=== PATIENT | female | born 1940 | race Caucasian/White ===

== ENCOUNTER 2016-12-09 01:31 | Inpatient (IN) | payer MEDICARE, OTHER ==
[2016-12-09] MEDS ORDERED: Albuterol 0.083% 2.5 MG/3 ML Neb Soln NEB ONE (01:40)
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
[2016-12-09] MEDS ORDERED: Aspirin 81 MG Tab.Chew PO ONE (02:00)
[2016-12-09] MEDS ORDERED: methylPREDNISolone Sodium Succinate 125 MG/2 ML SDV IVPUSH ONE (02:01)
[2016-12-09 02:18] LABS: CHLORIDE,CL 99 mmol/L (101-111); SODIUM,NA 134 mmol/L (135-145)
[2016-12-09] MEDS ORDERED: Furosemide 40 MG/4 ML VIAL IVPUSH ONE (02:31)
[2016-12-09] MEDS ORDERED: Acetaminophen 325 MG Tab PO PRN (03:41)
[2016-12-09] MEDS ORDERED: Morphine 2 MG/ML Syringe IVPUSH PRN (03:41)
[2016-12-09] MEDS ORDERED: Ondansetron 4 MG/2 ML SDV IVPUSH PRN (03:41)
[2016-12-09] MEDS ORDERED: Albuterol 0.083% 2.5 MG/3 ML Neb Soln NEB PRN (03:49)
[2016-12-09] MEDS: methylPREDNISolone Sodium Succinate 40 MG/1 ML SDV IVPUSH SCH ×3 (04:18→20:14)
[2016-12-09] MEDS: cefTRIAXone 1 GM in Sodium Chloride 0.9% 50 ML IV SCH (04:19)
[2016-12-09] MEDS: Diltiazem 120 MG Cap.CD PO SCH (09:16)
[2016-12-09] MEDS: Diltiazem 180 MG Cap.CD PO SCH (09:16)
[2016-12-09] MEDS: Aspirin 81 MG Tab.EC PO SCH (09:17)
[2016-12-09] MEDS: Albuterol/Ipratropium 3.0-0.5 MG/3 ML Neb Soln NEB SCH ×5 (09:17→22:57)
[2016-12-09] MEDS ORDERED: Insulin Aspart 100 Units/ML 3 ML Pen SUBCUT SCH ×2 (11:00→17:00)
[2016-12-09] MEDS ORDERED: Cyanocobalamin (Vitamin B12) 1,000 MCG/ML SDV IM ONE (11:18)
[2016-12-09] MEDS ORDERED: Insulin Aspart 100 Units/ML 3 ML Pen SUBCUT ONE (12:39)
[2016-12-09] MEDS: Azithromycin 500 MG in Sodium Chloride 0.9% 250 ML IV SCH (12:52)
--- NOTE | 2016-12-09 14:54 | EKG ---
12/09/2016 - EVA TREVINO - EKG shows atrial fibrillation with rapid ventricular response. Heart rate of 104 per minute. There are multiple PVCs. There is questionable Q-wave in anterior septal wall suggestive of previous infarct. [facility] /[id number]
--- NOTE | 2016-12-09 16:28 | HP ---
CHIEF COMPLAINT: Shortness of breath. HISTORY OF PRESENT ILLNESS: Ms. Adriana Cuevas presented with complaint of shortness of breath. This has been going on for 2 weeks and has gradually been worsening. It is present at rest, but worse with activity. She has associated cough, which is productive of yellowish sputum. She has been using bronchodilators and has been treated with antibiotics including Z-Keenan, has also received dexamethasone, but none of these seem to help. She has been wheezing and also has noticed bilateral lower extremity swelling. No chest pain. No headache. No blurring of vision. No dysuria. No frequency on micturition. REVIEW OF SYSTEMS: A 10-point review of system performed. No other pertinent findings except as noted above. PAST MEDICAL HISTORY: Coronary artery disease, hypertension, diabetes, asthma, aortic valve replacement on chronic anticoagulation. SOCIAL HISTORY: No tobacco use. FAMILY HISTORY: Reviewed and considered negative. OBJECTIVE: General: The patient is alert, oriented to place, time, and person. Head: Atraumatic and normocephalic. Ear, Nose, and Throat: Unremarkable. Neck: Supple. Chest: Diminished air entry bilaterally. CVS: Regular rate and rhythm. Abdomen: Soft, nontender. Extremities: 1+ pedal edema. No finger clubbing. Skin: No rash. Neuro: Grossly nonfocal. Endocrine: No thyromegaly. Psychiatric: Judgment and insight are good. Vital Signs: Reviewed. Blood pressure 145/79; it was higher earlier. Oxygen saturation 98%. LABORATORY DATA: White count is 14.7, hemoglobin is 14.4. Sodium 134. Glucose is 190. Lactic acid is 2.9. BNP is 160. Chest x-ray shows questionable infiltrate at lower lung zones. There is probably a little bit of cephalization of pulmonary vessels as well. ASSESSMENT: 1. Probable pneumonia. The patient has cough and has shortness of breath. This has been going on for 2 weeks. 2. Possible acute exacerbation of congestive heart failure. Her brain natriuretic peptide is only mildly elevated. However, she does have a little bit of lower extremity edema. 3. Diabetes mellitus. Blood sugar is poorly controlled. 4. Lactic acidosis. Serum lactate is elevated at 2.9. 5. Hypertension, suboptimal control. 6. Colon artery disease. She is status post previous stent placement. 7. Status post aortic valve replacement, on chronic anticoagulation. INR is supratherapeutic. 8. Chronic anticoagulation. INR is supratherapeutic. PLAN: 1. Start the patient on sliding scale. 2. Intravenous ceftriaxone. 3. Intravenous azithromycin. 4. Sputum culture. 5. Hold Coumadin. 6. Send sample for PT and INR. 7. Intravenous Lasix 60 mg every 24 hours. 8. Chart reviewed. Discussed with emergency room provider and also with physician practice assistant. [facility] /[id number]
[2016-12-09] MEDS: Insulin Aspart 100 Units/ML 3 ML Pen SUBCUT SCH ×2 (18:07→21:42)
[2016-12-09] MEDS: Metoprolol Tartrate 50 MG Tab PO SCH (21:47)
[2016-12-10] MEDS: methylPREDNISolone Sodium Succinate 40 MG/1 ML SDV IVPUSH SCH ×4 (03:27→21:58)
[2016-12-10] MEDS: Albuterol/Ipratropium 3.0-0.5 MG/3 ML Neb Soln NEB SCH ×5 (03:27→17:04)
[2016-12-10] MEDS: Sodium Chloride 0.9% 10 ML Syringe FLUSH PRN ×2 (03:27→04:05)
[2016-12-10] MEDS: cefTRIAXone 1 GM in Sodium Chloride 0.9% 50 ML IV SCH (03:28)
[2016-12-10] MEDS: Insulin Aspart 100 Units/ML 3 ML Pen SUBCUT SCH ×4 (08:09→21:17)
[2016-12-10] MEDS: Diltiazem 120 MG Cap.CD PO SCH (08:41)
[2016-12-10] MEDS: Metoprolol Tartrate 50 MG Tab PO SCH ×2 (08:42→20:37)
[2016-12-10] MEDS: Aspirin 81 MG Tab.EC PO SCH (08:42)
[2016-12-10] MEDS: Diltiazem 180 MG Cap.CD PO SCH (08:42)
[2016-12-10] MEDS: metFORMIN 500 MG Tab PO SCH ×2 (08:43→17:04)
[2016-12-10] MEDS: Budesonide 0.5 MG/2 ML Neb Susp NEB SCH ×2 (08:45→17:05)
[2016-12-10] MEDS ORDERED: Furosemide 40 MG/4 ML VIAL IVPUSH SCH (09:00)
[2016-12-10 10:03] LABS: CHLORIDE,CL 94 mmol/L (101-111); SODIUM,NA 135 mmol/L (135-145)
[2016-12-10] MEDS ORDERED: Potassium Chloride 10 MEQ Tab.ER PO ONE (10:25)
--- NOTE | 2016-12-10 11:19 | PN ---
DATE: 12/10/2016 SUBJECTIVE: Ms. Lora offers no new complaints today. Still her mouth feels dry. She is still coughing, but severity is better. No fever. No chills. No nausea. No vomiting today. She did vomit yesterday. REVIEW OF SYSTEMS: Constitutional, cardiac, respiratory, gastrointestinal, and genitourinary system were reviewed. No other pertinent findings except as noted above. OBJECTIVE: General: The patient is alert, oriented to place, time, and person. Head: Atraumatic and normocephalic. Ear, Nose, and Throat: Unremarkable. Chest: Diminished air entry bilaterally. CVS: Regular rate and rhythm. Abdomen: Soft and nontender. Extremities: Trace edema. Vital Signs: She is tachycardic heart rate 116 per minute, respiratory rate normal, blood pressure 149/80. LABORATORY DATA: INR is 5.4. Potassium is 3.4 with BUN of 36. Blood glucose elevated. ASSESSMENT: 1. Probable pneumonia, continues to cough. Afebrile. 2. Acute exacerbation of congestive heart failure. BNP was mildly elevated, did have lower extremity edema. The patient appears clinically dry at this point. 3. Diabetes mellitus, poorly controlled, likely because of steroids. 4. Lactic acidosis. Serum lactate was 2.9. 5. Coronary artery disease. The patient is status post previous stent placement. 6. Status post aortic valve replacement. She is on chronic anticoagulation. INR is still supratherapeutic. 7. Chronic anticoagulation. INR is 5.4. PLAN: 1. Hold Coumadin. 2. Reduce steroids to 20 mg every 8 hours. 3. Repeat serum lactate. 4. Discontinue intravenous Lasix. 5. Start oral Lasix. 6. Continue antibiotics for now. 7. Correct potassium deficit. [facility] /[id number]
[2016-12-10] MEDS: Azithromycin 500 MG in Sodium Chloride 0.9% 250 ML IV SCH (12:56)
[2016-12-11] MEDS: Albuterol/Ipratropium 3.0-0.5 MG/3 ML Neb Soln NEB SCH ×4 (01:50→17:32)
[2016-12-11] MEDS: cefTRIAXone 1 GM in Sodium Chloride 0.9% 50 ML IV SCH (04:03)
[2016-12-11] MEDS: methylPREDNISolone Sodium Succinate 40 MG/1 ML SDV IVPUSH SCH (05:48)
[2016-12-11] MEDS: Budesonide 0.5 MG/2 ML Neb Susp NEB SCH ×2 (07:25→17:32)
[2016-12-11] MEDS ORDERED: Furosemide 40 MG/4 ML VIAL IVPUSH SCH (09:00)
[2016-12-11] MEDS: metFORMIN 500 MG Tab PO SCH ×2 (09:20→17:11)
[2016-12-11] MEDS: Diltiazem 180 MG Cap.CD PO SCH (09:20)
[2016-12-11] MEDS: Furosemide 40 MG Tab PO SCH (09:21)
[2016-12-11] MEDS: Aspirin 81 MG Tab.EC PO SCH (09:21)
[2016-12-11] MEDS: Metoprolol Tartrate 50 MG Tab PO SCH ×2 (09:21→21:51)
[2016-12-11] MEDS: Diltiazem 120 MG Cap.CD PO SCH (09:22)
[2016-12-11] MEDS: Insulin Aspart 100 Units/ML 3 ML Pen SUBCUT SCH ×4 (09:24→21:48)
--- NOTE | 2016-12-11 12:12 | PN ---
DATE: 12/11/2016 SUBJECTIVE: Today Adriana indicated that she is still feeling short of breath. She is still wheezing and still coughing a lot. No nausea, no vomiting. Activity level is limited. No fever and no chills. REVIEW OF SYSTEMS: Constitutional, cardiac, respiratory, gastrointestinal, musculoskeletal reviewed. No other pertinent findings except as noted above. OBJECTIVE: General: The patient is alert, oriented to place, time, and person. Head: Atraumatic and normocephalic. Chest: Expiratory rhonchi bilaterally. CVS: Regular rate and rhythm. Abdomen: Soft, nontender. Extremities: No edema. LABORATORY DATA: INR is 3.2. ASSESSMENT: 1. Probable pneumonia. Still coughing. Continues to wheeze. 2. Acute exacerbation of congestive heart failure. Did have mildly elevated BNP. Did have some edema. 3. Bronchospasm, may have a component of chronic obstructive pulmonary disease exacerbation. 4. Diabetes mellitus, poorly controlled, mostly because of steroids. 5. Lactic acidosis. Serum lactate was elevated. 6. Coronary artery disease, denies chest pain. 7. Status post aortic valve replacement. On chronic anticoagulation. INR is down to 3.2. PLAN: 1. We will start patient back on Coumadin. 2. Repeat serum lactate. 3. Discontinue intravenous Solu-Medrol. 4. Start prednisone 40 mg daily. 5. Encourage increased activity. 6. Sliding scale. 7. Monitor blood sugars. [facility] /[id number]
[2016-12-11] MEDS: predniSONE 20 MG Tab PO SCH (12:27)
[2016-12-11] MEDS: Azithromycin 500 MG in Sodium Chloride 0.9% 250 ML IV SCH ×2 (12:28→14:33)
[2016-12-11] MEDS: Amoxicillin/Clavulanate K 875-125 MG Tab PO SCH ×2 (13:46→21:59)
[2016-12-11] MEDS: Codeine/guaiFENesin 100-10 MG/5 ML Syrup 5 ML Cup PO PRN (13:55)
[2016-12-11] MEDS: Azithromycin 250 MG Tab PO SCH (14:37)
[2016-12-12] MEDS: Albuterol/Ipratropium 3.0-0.5 MG/3 ML Neb Soln NEB SCH ×4 (00:53→17:58)
[2016-12-12] MEDS: Budesonide 0.5 MG/2 ML Neb Susp NEB SCH ×2 (07:20→17:58)
[2016-12-12] MEDS: metFORMIN 500 MG Tab PO SCH (08:26)
[2016-12-12] MEDS: predniSONE 20 MG Tab PO SCH (08:26)
[2016-12-12] MEDS: Insulin Aspart 100 Units/ML 3 ML Pen SUBCUT SCH ×4 (08:27→21:48)
[2016-12-12] MEDS: Furosemide 40 MG Tab PO SCH (09:34)
[2016-12-12] MEDS: Amoxicillin/Clavulanate K 875-125 MG Tab PO SCH ×2 (09:34→21:16)
[2016-12-12] MEDS: Diltiazem 120 MG Cap.CD PO SCH (09:34)
[2016-12-12] MEDS: Aspirin 81 MG Tab.EC PO SCH (09:34)
[2016-12-12] MEDS: Metoprolol Tartrate 50 MG Tab PO SCH ×2 (09:35→21:20)
[2016-12-12] MEDS: Diltiazem 180 MG Cap.CD PO SCH (09:35)
[2016-12-12] MEDS: Azithromycin 250 MG Tab PO SCH (09:37)
[2016-12-12] MEDS: Codeine/guaiFENesin 100-10 MG/5 ML Syrup 5 ML Cup PO PRN (09:37)
[2016-12-12] MEDS ORDERED: Furosemide 40 MG Tab PO ONE (10:02)
[2016-12-12] MEDS ORDERED: Sodium Chloride 0.9% 1,000 ML IV SCH ×2 (10:15→14:30)
--- NOTE | 2016-12-12 10:41 | PN ---
DATE: 12/12/2016 SUBJECTIVE: Ms. Wright indicated that she still feels short of breath. She is short of breath at rest, and significantly worse with activity. She still continues to wheeze. She still has intermittent coughing spells. No nausea. No vomiting. She coughed up yellowish sputum this morning. REVIEW OF SYSTEMS: Respiratory, gastrointestinal, constitutional, cardiac are reviewed. No other pertinent findings except as noted above. OBJECTIVE: General: The patient is alert, oriented to place, time, and person. Head: Atraumatic and normocephalic. Chest: Bilateral expiratory rhonchi. CVS: Irregular rate and rhythm. Abdomen: Soft, nontender, obese. Extremities: No pedal edema. LABORATORY DATA: INR is 2.5 today. ASSESSMENT AND PLAN: 1. Community-acquired pneumonia. The patient continues to cough. She expectorated yellowish sputum today. 2. Acute exacerbation of congestive heart failure. Does have diminished air entry bilaterally, has expiratory rhonchi. 3. Bronchospasm, continues to wheeze. Probably due to a component of chronic obstructive pulmonary disease exacerbation. 4. Diabetes mellitus. Suboptimal blood sugar control because of steroids. 5. Lactic acidosis. Serum lactate went up 4.8. Reason for this is not obvious. 6. Hypertension. Blood pressure is poorly controlled. 7. Status post aortic valve replacement. She is on chronic anticoagulation. INR is. 8. down to 3.2. PLAN: 1. Obtain a repeat chest x-ray. 2. We will which check serum lactate again. 3. Start the patient back on normal saline. 4. Obtain basic metabolic. Obtain a CBC. It is unclear why the patient's lactate went up to 4.8. We will repeat the levels. 5. Insulin sliding scale. [facility] /[id number]
[2016-12-12] MEDS: cloNIDine 0.1 MG Tab PO SCH ×2 (11:58→21:21)
[2016-12-12] MEDS ORDERED: Warfarin 2.5 MG Tab PO ONE (14:00)
[2016-12-12] MEDS ORDERED: cloNIDine 0.1 MG Tab PO SCH (21:00)
[2016-12-13] MEDS: Albuterol/Ipratropium 3.0-0.5 MG/3 ML Neb Soln NEB SCH ×2 (01:03→07:36)
[2016-12-13] MEDS: Budesonide 0.5 MG/2 ML Neb Susp NEB SCH (07:36)
[2016-12-13] MEDS: predniSONE 20 MG Tab PO SCH (08:04)
[2016-12-13] MEDS: Insulin Aspart 100 Units/ML 3 ML Pen SUBCUT SCH ×2 (08:12→11:39)
[2016-12-13] MEDS: Azithromycin 250 MG Tab PO SCH (08:46)
[2016-12-13] MEDS: Diltiazem 120 MG Cap.CD PO SCH (08:46)
[2016-12-13] MEDS: Diltiazem 180 MG Cap.CD PO SCH (08:46)
[2016-12-13] MEDS: Metoprolol Tartrate 50 MG Tab PO SCH (08:46)
[2016-12-13] MEDS: Amoxicillin/Clavulanate K 875-125 MG Tab PO SCH (08:46)
[2016-12-13] MEDS: cloNIDine 0.1 MG Tab PO SCH (08:47)
[2016-12-13] MEDS: Aspirin 81 MG Tab.EC PO SCH (08:47)
[2016-12-13 11:38] VITALS: BP 139/60
[2016-12-13] MEDS: Furosemide 40 MG Tab PO SCH (11:43)
[2016-12-13] MEDS ORDERED: Warfarin 2.5 MG Tab PO ONE (14:00)
--- NOTE | 2016-12-14 02:36 | DISCH ---
FINAL DIAGNOSES: 1. Probable community-acquired pneumonia. 2. Possible acute exacerbation of congestive heart failure. 3. Bronchospasm likely due to acute bronchitis. 4. Diabetes mellitus. 5. Lactic acidosis. 6. Hypertension. 7. Status post aortic valve replacement, on chronic anticoagulation. SUMMARY OF HOSPITAL COURSE: Ms. Adriana Cuevas is a 76-year-old female, who presented with complaint of shortness of breath and cough that was going on for 2 weeks. She was expectorating yellowish sputum and had been treated as outpatient with antibiotics and steroid. Her condition continued to worsen. Hence she presented back to the emergency room. Chest x-ray suggested possible pneumonia and questionable cephalization of pulmonary vessels. The patient got admitted, was placed on intravenous antibiotics. Because of pulmonary vascular congestion, was started on diuretics also. She did improve some, but continues to wheeze. Was also started that because of her pneumonia, she does have some degree of asthma exacerbation. She was treated with diuretics, steroids, and antibiotics. Condition gradually improved. Her lactate was elevated at 2.9 at admission and has gradually went up to 5.0. Because she was on metformin, I had to stop that medication. Metformin can be associated with lactic acidosis. With steroids, her blood sugars were poorly controlled. We will place her on insulin sliding scale. She is doing better now. Because of the lactic acidosis, we had to hold metformin at discharge. Initially, I started the patient on glyburide 5 mg daily. Upon review of her case, it was difficult drawing blood samples from her and she had to be poked multiple times. Sometimes, a tourniquet was in place for significant amount of time. This raises concern about the source of her lactic acidosis. I think in the clinic she could be rechallenged with metformin, but her lactate should be checked while on it. We will now send her home on glyburide, but changes could be made in the clinic based on her clinical condition. PHYSICAL EXAMINATION: General: At discharge, the patient is alert, oriented to place, time, and person. Head: Atraumatic and normocephalic. Ear, Nose, and Throat: Unremarkable. Chest: Diminished breath sounds bilaterally. CVS: Regular rate and rhythm. Abdomen: Soft, nontender. Extremities: No pedal edema. No finger clubbing. [facility] /[id number]
== END 2016-12-13 13:30 | disposition home or self-care (01) | DRG 194 ==
LOC: DL.ED 01:31 → DL.MS 03:00 → UNDOADMIN 03:00 → DL.MS 03:47 → UNDODISIN 12-13 13:30
PROVIDERS: ADMIT Hospitalist; ATTEND Hospitalist
DX: J40 Bronchitis, not specified as acute or chronic (principal); J45.901 Unspecified asthma with (acute) exacerbation; I48.91 Unspecified atrial fibrillation; J18.9 Pneumonia, unspecified organism; I25.10 Atherosclerotic heart disease of native coronary artery without angina pectoris; E78.00 Pure hypercholesterolemia, unspecified; E87.2 Acidosis; E53.8 Deficiency of other specified B group vitamins; Z95.5 Presence of coronary angioplasty implant and graft; Z88.8 Allergy status to other drugs, medicaments and biological substances; Z79.899 Other long term (current) drug therapy; I50.9 Heart failure, unspecified; J20.9 Acute bronchitis, unspecified; R06.02 Shortness of breath; E11.9 Type 2 diabetes mellitus without complications; I10 Essential (primary) hypertension; Z95.2 Presence of prosthetic heart valve; Z79.01 Long term (current) use of anticoagulants
CPT/HCPCS: 36415; 71010; 80053; 82553; 83605; 83880; 84484; 85025; 85610; 87040 ×2; 87804 ×2; 93005; 93010; 96374; 96375; 99285 ×2; J1940; J2930; J7620; 80048; 82962; 87070; 87205; 94010; 94640; A9270-GY; J0456; J0696; J1815-GY; J2920; J3420; J7030; J7050

== ENCOUNTER 2017-06-16 02:47 | Emergency (ER) | payer MEDICARE, OTHER ==
[2017-06-16] MEDS ORDERED: Sodium Chloride 0.9% 1,000 ML IV ONE (02:52)
[2017-06-16] MEDS ORDERED: Metoclopramide 10 MG/2 ML SDV IVPUSH ONE (02:53)
[2017-06-16 03:03] VITALS: BP 102/64
[2017-06-16] MEDS ORDERED: LORazepam 2 MG/ML Syringe IVPUSH ONE (03:04)
[2017-06-16 03:51] LABS: CHLORIDE,CL 103 mmol/L (101-111); SODIUM,NA 142 mmol/L (135-145)
--- NOTE | 2017-06-16 04:38 | EDM.PDOC ---
ED HPI GENERAL MEDICAL PROBLEM - General Chief Complaint: General Stated Complaint: SHAKING Time Seen by Provider: 06/16/17 03:00 Source of Information: Reports: Patient History Limitations: Reports: No Limitations - History of Present Illness INITIAL COMMENTS - FREE TEXT/NARRATIVE: C/O waking at 2 am shaking with chills, checked blood sugar and was 150. No recent cold sx or cough, feels like going to throw up. Onset: Today, Sudden - Related Data Allergies Allergy/AdvReac Type Severity Reaction Status Date / Time amlodipine besylate Allergy Tachycardia Verified 06/16/17 03:01 [From Norvasc] amoxicillin trihydrate Allergy Diarrhea Verified 06/16/17 03:01 [From Amoxil] Iodine and Iodide Containing Allergy Redness Verified 06/16/17 03:01 Produc levofloxacin [From Levaquin] Allergy Hives Verified 06/16/17 03:01 nickel Allergy Rash Verified 06/16/17 03:01 pravastatin Allergy sore Verified 06/16/17 03:01 muscles simvastatin [From Zocor] Allergy Muscle Verified 06/16/17 03:01 Aches atorvastatin calcium AdvReac Nausea Verified 06/16/17 03:01 [From Lipitor] dronedarone AdvReac Nausea and Verified 06/16/17 03:01 Vomiting hydrocodone AdvReac Nausea and Verified 06/16/17 03:01 Vomiting tramadol AdvReac Nausea and Verified 06/16/17 03:01 Vomiting Home Meds: Home Meds Aspirin [Adult Low Dose Aspirin EC] 81 mg PO DAILY 10/11/14 [History] Diltiazem HCl [Diltiazem 24Hr ER] 300 mg PO DAILY 10/11/14 [History] Losartan/Hydrochlorothiazide [Losartan-HCTZ 100-25 MG] 1 tab PO DAILY 10/11/14 [ History] Warfarin Sodium [Jantoven] 5 mg PO ASDIRECTED 10/11/14 [History] Metoprolol Tartrate [Lopressor] 100 mg PO BID 11/19/14 [History] Cyanocobalamin (Vitamin B-12) [Cyanocobalamin Injection] 1,000 mcg IM Q30D 12/09 [History] Warfarin Sodium [Jantoven] 2.5 mg PO ASDIRECTED 12/09/16 [History] glyBURIDE [Glyburide] 5 mg PO DAILY #10 tablet 12/13/16 [Rx] Past Medical History HEENT History: Reports: Impaired Vision Cardiovascular History: Reports: CAD, High Cholesterol, Hypertension, Other ( See Below) Other Cardiovascular History: Paroxysmal Atrial Fibrillation, Aortic Stenosis Respiratory History: Reports: Asthma, Sleep Apnea Genitourinary History: Reports: Other (See Below) Other Genitourinary History: mild stress incontinence when coughing 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 (See Below) Other OB/BYN History: Endometrial Hyperplasia; Dilatation & Curettage Musculoskeletal History: Reports: Arthritis Endocrine/Metabolic History: Reports: Diabetes, Type II Hematologic History: Reports: B12 Deficiency - Past Surgical History Cardiovascular Surgical History: Reports: Coronary Artery Stent, Valve Replacement, Other (See Below) GI Surgical History: Reports: Hernia, Abdominal Female Surgical History: Reports: Hysterectomy, Other (See Below) Social & Family History - Family History Family Medical History: Noncontributory Cardiac: Reports: Hypertension - Tobacco Use Smoking Status *Q: Unknown Ever Smoked Years of Tobacco use: 8 Packs/Tins Daily: 1 Second Hand Smoke Exposure: No - Caffeine Use Caffeine Use: Reports: Soda - Alcohol Use Days Per Week of Alcohol Use: 0 - Recreational Drug Use Recreational Drug Use: No - Living Situation & Occupation Living situation: Reports: Occupation: Retired ED ROS GENERAL - Review of Systems Review Of Systems: See Below Constitutional: Reports: Chills HEENT: Reports: Glasses Respiratory: Reports: No Symptoms Cardiovascular: Reports: No Symptoms Endocrine: Reports: No Symptoms GI/Abdominal: Reports: Nausea : Reports: No Symptoms Musculoskeletal: Reports: No Symptoms Skin: Reports: No Symptoms Neurological: Reports: No Symptoms Psychiatric: Reports: Anxiety ED EXAM, GENERAL - Physical Exam Exam: See Below Exam Limited By: No Limitations General Appearance: Alert, Anxious, Mild Distress, Obese Eye Exam: Bilateral Eye: EOMI, PERRL Ears: Normal External Exam, Normal TMs Nose: Normal Inspection Throat/Mouth: Normal Inspection Head: Atraumatic, Normocephalic Neck: Normal Inspection Respiratory/Chest: Lungs Clear, Normal Breath Sounds Cardiovascular: Normal Peripheral Pulses, Irregularly Irregular GI/Abdominal: Normal Bowel Sounds, Soft, Non-Tender. No: Distended, Guarding, Tender Extremities: Normal Inspection, Normal Range of Motion Neurological: Alert, Oriented, Normal Cognition Psychiatric: Anxious Skin Exam: Warm, Dry, Intact, Normal Color, No Rash Course - Vital Signs Last Recorded V/S: Last Vital Signs Temp 100.0 F 06/16/17 03:01 Pulse 104 H 06/16/17 03:01 Resp 30 H 06/16/17 03:01 BP 102/64 06/16/17 03:01 Pulse Ox 90 L 06/16/17 03:01 - Orders/Labs/Meds Labs: Laboratory Tests 06/16/17 06/16/17 06/16/17 Range/Units 03:10 03:10 03:25 WBC 15.2 H (5.0-10.0) 10^3/uL RBC 4.51 (4.2-5.4) 10^6/uL Hgb 12.6 (12.0-16.0) g/dL Hct 38.6 (37.0-47.0) % MCV 85.6 (80-100) fL MCH 27.9 (27.0-34.0) pg MCHC 32.6 L (33.0-35.0) g/dL Plt Count 272 (150-450) 10^3/uL Neut % (Auto) 79.7 H (42.2-75.2) % Lymph % (Auto) 12.9 L (20.5-50.1) % [place] % (Auto) 5.6 (2-8) % Eos % (Auto) 1.7 (1.0-3.0) % Baso % (Auto) 0.1 (0.0-1.0) % PT (9.0-12.0) SEC INR (0.9-1.2) Sodium 142 (135-145) mmol/L Potassium 4.3 (3.6-5.0) mmol/L Chloride 103 (101-111) mmol/L Carbon Dioxide 25.0 (21.0-31.0) mmol/L Anion Gap 18.3 BUN 24 H (7-18) mg/dL Creatinine 1.2 (0.6-1.3) mg/dL Est Cr Clr Drug Dosing 32.04 mL/min Estimated GFR (MDRD) 44 BUN/Creatinine Ratio 20.00 Glucose 142 H (74-105) mg/dL Lactic Acid 2.0 (0.5-2.2) mmol/L Calcium 9.2 (8.4-10.2) mg/dl Total Bilirubin 0.4 (0.2-1.0) mg/dL AST 26 (10-42) IU/L ALT 22 (10-60) IU/L Alkaline Phosphatase 73 (42-121) IU/L Troponin I < 0.02 (0.00-0.02) ng/ml Total Protein 7.2 (6.7-8.2) g/dl Albumin 3.7 (3.2-5.5) g/dl Globulin 3.5 Albumin/Globulin Ratio 1.06 Amylase 30 (28-100) U/L Lipase 17 L (22-51) U/L Urine Color (YELLOW) Urine Appearance (CLEAR) Urine pH (5.0-9.0) Ur Specific [place] (1.005-1.030) Urine Protein (NEGATIVE) Urine Glucose (UA) (NEGATIVE) Urine Ketones (NEGATIVE) Urine Occult Blood (NEGATIVE) Urine Nitrite (NEGATIVE) Urine Bilirubin (NEGATIVE) Urine Urobilinogen (0.2-1.0) mg/dL Ur Leukocyte Esterase (NEGATIVE) Urine RBC /HPF Urine WBC (0-5/HPF) /HPF Ur Epithelial Cells /HPF Urine Bacteria (0-FEW/HPF) /HPF 06/16/17 06/16/17 Range/Units 03:25 04:50 WBC (5.0-10.0) 10^3/uL RBC (4.2-5.4) 10^6/uL Hgb (12.0-16.0) g/dL Hct (37.0-47.0) % MCV (80-100) fL MCH (27.0-34.0) pg MCHC (33.0-35.0) g/dL Plt Count (150-450) 10^3/uL Neut % (Auto) (42.2-75.2) % Lymph % (Auto) (20.5-50.1) % [place] % (Auto) (2-8) % Eos % (Auto) (1.0-3.0) % Baso % (Auto) (0.0-1.0) % PT 22.5 H (9.0-12.0) SEC INR 2.2 H (0.9-1.2) Sodium (135-145) mmol/L Potassium (3.6-5.0) mmol/L Chloride (101-111) mmol/L Carbon Dioxide (21.0-31.0) mmol/L Anion Gap BUN (7-18) mg/dL Creatinine (0.6-1.3) mg/dL Est Cr Clr Drug Dosing mL/min Estimated GFR (MDRD) BUN/Creatinine Ratio Glucose (74-105) mg/dL Lactic Acid (0.5-2.2) mmol/L Calcium (8.4-10.2) mg/dl Total Bilirubin (0.2-1.0) mg/dL AST (10-42) IU/L ALT (10-60) IU/L Alkaline Phosphatase (42-121) IU/L Troponin I (0.00-0.02) ng/ml Total Protein (6.7-8.2) g/dl Albumin (3.2-5.5) g/dl Globulin Albumin/Globulin Ratio Amylase (28-100) U/L Lipase (22-51) U/L Urine Color Yellow (YELLOW) Urine Appearance Turbid (CLEAR) Urine pH 5.0 (5.0-9.0) Ur Specific [place] 1.025 (1.005-1.030) Urine Protein Negative (NEGATIVE) Urine Glucose (UA) Negative (NEGATIVE) Urine Ketones Negative (NEGATIVE) Urine Occult Blood Trace-intact H (NEGATIVE) Urine Nitrite Negative (NEGATIVE) Urine Bilirubin Negative (NEGATIVE) Urine Urobilinogen 0.2 (0.2-1.0) mg/dL Ur Leukocyte Esterase Small H (NEGATIVE) Urine RBC 0-5 /HPF Urine WBC 20-30 H (0-5/HPF) /HPF Ur Epithelial Cells Many H /HPF Urine Bacteria Many H (0-FEW/HPF) /HPF Meds: Medications Discontinued Medications Generic Name Dose Route Start Last Admin Trade Name Abaq PRN Reason Stop Dose Admin Acetaminophen 650 mg 06/16/17 05:39 06/16/17 05:50 Tylenol PO 06/16/17 05:40 650 mg NOW ONE Administration Amoxicillin/Clavulanate Potassium 1 tab 06/16/17 05:39 06/16/17 05:50 Augmentin 500 Mg\125 Mg PO 06/16/17 05:40 1 tab ONETIME ONE Administration Sodium Chloride 1,000 mls @ 150 mls/hr 06/16/17 02:52 06/16/17 03:15 Normal Saline IV 06/16/17 09:31 150 mls/hr .BOLUS ONE Administration Lorazepam 1 mg 06/16/17 03:04 06/16/17 03:46 Ativan IVPUSH 06/16/17 03:05 0.5 mg ONETIME ONE Administration Metoclopramide HCl 10 mg 06/16/17 02:53 06/16/17 03:16 Reglan IVPUSH 06/16/17 02:54 10 mg ONETIME ONE Administration - Radiology Interpretation Free Text/Narrative:: CXR negative Departure - Departure Time of Disposition: 05:33 Disposition: Home, Self-Care 01 Condition: Fair Clinical Impression: UTI (urinary tract infection) Qualifiers: Urinary tract infection type: acute cystitis Hematuria presence: without hematuria Qualified Code(s): N30.00 - Acute cystitis without hematuria - Discharge Information Instructions: Urinary Tract Infection, Adult Referrals: Carson Leblanc MD [Primary Care Provider] - Forms: ED Department Discharge Additional Instructions: augmentin 500/125 one twice daily for 10 days tylenol for fever/discomfort clinic follow up this week, sooner if symptoms worsen or uncontrolled fever or weakness
[2017-06-16] MEDS ORDERED: Acetaminophen 325 MG Tab PO ONE (05:39)
[2017-06-16] MEDS ORDERED: Amoxicillin/Clavulanate K 500-125 MG Tab PO ONE (05:39)
--- NOTE | 2017-07-07 13:06 | EKG ---
06/16/2017 - EVA TREVINO - EKG shows atrial fibrillation with rate of 95 per minute. There is Q-wave in anterior septal leads, suggestive of possible prior anteroseptal infarct. [facility] /[id number]
--- NOTE | 2017-07-07 13:09 | EKG ---
06/16/2017 - EVA TREVINO - TIME: 3:05 p.m. EKG shows atrial fibrillation, rate of 94 per minute. There is Q-wave in anterior septal leads. [facility] /[id number]
== END 2017-06-16 05:59 | disposition home or self-care (01) ==
LOC: DL.ED 02:47
DX: N30.00 Acute cystitis without hematuria (principal); I25.10 Atherosclerotic heart disease of native coronary artery without angina pectoris; E78.00 Pure hypercholesterolemia, unspecified; I10 Essential (primary) hypertension; I48.91 Unspecified atrial fibrillation; J45.909 Unspecified asthma, uncomplicated; M19.90 Unspecified osteoarthritis, unspecified site; E11.9 Type 2 diabetes mellitus without complications; Z90.710 Acquired absence of both cervix and uterus; Z88.8 Allergy status to other drugs, medicaments and biological substances; Z88.1 Allergy status to other antibiotic agents; Z79.82 Long term (current) use of aspirin; Z79.01 Long term (current) use of anticoagulants
CPT/HCPCS: 36415; 71010; 80053; 81001; 82150; 83605; 83690; 84484; 85025; 85610; 87040; 87086; 87804; 93005; 93010; 94762; 96361; 96374; 96375; 99284; A9270; J2060; J2765; J7030; 87088; 87186

== ENCOUNTER 2018-03-15 00:53 | Emergency (ER) | payer MEDICARE, OTHER ==
[2018-03-15 01:36] LABS: CHLORIDE,CL 101 mmol/L (101-111); SODIUM,NA 140 mmol/L (135-145)
[2018-03-15] MEDS ORDERED: Furosemide 20 MG/2 ML VIAL IVPUSH ONE (01:56)
[2018-03-15] MEDS ORDERED: Metoclopramide 10 MG/2 ML SDV IVPUSH ONE (01:56)
[2018-03-15] MEDS ORDERED: LORazepam 2 MG/ML Syringe IVPUSH ONE (02:01)
[2018-03-15] MEDS ORDERED: Acetaminophen 325 MG Tab PO ONE (02:57)
--- NOTE | 2018-03-15 02:57 | EDM.PDOC ---
ED HPI GENERAL MEDICAL PROBLEM - General Chief Complaint: Respiratory Problem Stated Complaint: ER Time Seen by Provider: 03/15/18 01:15 Source of Information: Reports: Patient History Limitations: Reports: No Limitations - History of Present Illness INITIAL COMMENTS - FREE TEXT/NARRATIVE: ED with spouse via wheelchair with c/o of freezing, woke shaking. Patient anxious hyperventilating. 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 No SOB, no chest pain, no cough. No urinary c/o no GI symptoms. Headache Pain Score (Numeric/FACES): 9 - Related Data Allergies Allergy/AdvReac Type Severity Reaction Status Date / Time amlodipine besylate Allergy Tachycardia Verified 03/15/18 10:52 [From Norvasc] amoxicillin trihydrate Allergy Diarrhea Verified 03/15/18 10:52 [From Amoxil] Iodine and Iodide Containing Allergy Redness Verified 03/15/18 10:52 Produc levofloxacin [From Levaquin] Allergy Hives Verified 03/15/18 10:52 nickel Allergy Rash Verified 03/15/18 10:52 pravastatin Allergy sore Verified 03/15/18 10:52 muscles simvastatin [From Zocor] Allergy Muscle Verified 03/15/18 10:52 Aches atorvastatin calcium AdvReac Nausea Verified 03/15/18 10:52 [From Lipitor] dronedarone AdvReac Nausea and Verified 03/15/18 10:52 Vomiting hydrocodone AdvReac Nausea and Verified 03/15/18 10:52 Vomiting tramadol AdvReac Nausea and Verified 03/15/18 10:52 Vomiting Home Meds: Home Meds Aspirin [Adult Low Dose Aspirin EC] 81 mg PO DAILY 10/11/14 [History] Diltiazem HCl [Diltiazem 24Hr ER] 300 mg PO DAILY 10/11/14 [History] Losartan/Hydrochlorothiazide [Losartan-HCTZ 100-25 MG] 1 tab PO DAILY 10/11/14 [ History] Warfarin Sodium [Jantoven] 5 mg PO ASDIRECTED 10/11/14 [History] Metoprolol Tartrate [Lopressor] 100 mg PO BID 11/19/14 [History] Cyanocobalamin (Vitamin B-12) [Cyanocobalamin Injection] 1,000 mcg IM Q30D 12/09 [History] Warfarin Sodium [Jantoven] 2.5 mg PO ASDIRECTED 12/09/16 [History] glyBURIDE [Glyburide] 5 mg PO DAILY #10 tablet 12/13/16 [Rx] Past Medical History HEENT History: Reports: Impaired Vision Cardiovascular History: Reports: Afib, CAD, High Cholesterol, Hypertension, Other (See Below) Other Cardiovascular History: Paroxysmal Atrial Fibrillation, Aortic Stenosis Respiratory History: Reports: Asthma, Sleep Apnea Genitourinary History: Reports: Other (See Below) Other Genitourinary History: mild stress incontinence when coughing 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 (See Below) Other OB/BYN History: Endometrial Hyperplasia; Dilatation & Curettage Musculoskeletal History: Reports: Arthritis Endocrine/Metabolic History: Reports: Diabetes, Type II Hematologic History: Reports: B12 Deficiency - Past Surgical History Cardiovascular Surgical History: Reports: Coronary Artery Stent, Valve Replacement, Other (See Below) GI Surgical History: Reports: Hernia, Abdominal Female Surgical History: Reports: Hysterectomy, Other (See Below) Social & Family History - Family History Family Medical History: Noncontributory Cardiac: Reports: Hypertension - Tobacco Use Smoking Status *Q: Never Smoker - Caffeine Use Caffeine Use: Reports: Coffee - Recreational Drug Use Recreational Drug Use: No - Living Situation & Occupation Living situation: Reports: Occupation: Retired ED ROS GENERAL - Review of Systems Review Of Systems: ROS reveals no pertinent complaints other than HPI. ED EXAM, GENERAL - Physical Exam Exam: See Below Exam Limited By: No Limitations General Appearance: Anxious, Mild Distress, Obese Eye Exam: Bilateral Eye: EOMI, PERRL Ears: Normal External Exam Nose: Normal Inspection, Normal Mucosa Throat/Mouth: Normal Inspection, Normal Lips, Normal Teeth Head: Atraumatic, Normocephalic Neck: Normal Inspection. No: Lymphadenopathy (L), Lymphadenopathy (R) Respiratory/Chest: No Respiratory Distress, Decreased Breath Sounds, Other ( oxygen saturation 97-99% room air, shallow inspiratory effort). No: Respiratory Distress, Rales, Rhonchi, Wheezing Cardiovascular: Normal Peripheral Pulses, Irregularly Irregular (Atrial fib, rate controlled) GI/Abdominal: Normal Bowel Sounds, Soft, Non-Tender Extremities: Pedal Edema (trace bilateral) Neurological: Alert, Oriented, Normal Cognition Psychiatric: Anxious Skin Exam: Warm, Intact, Normal Color Course - Vital Signs Last Recorded V/S: Last Vital Signs Temp 99.6 F 03/15/18 03:33 Pulse 111 H 03/15/18 03:34 Resp 21 H 03/15/18 03:34 BP 124/53 L 03/15/18 03:10 Pulse Ox 95 03/15/18 03:34 - Orders/Labs/Meds Labs: Laboratory Tests 03/15/18 03/15/18 03/15/18 Range/Units 01:05 01:05 01:05 WBC 19.3 H (5.0-10.0) 10^3/uL RBC 4.92 (4.2-5.4) 10^6/uL Hgb 13.9 (12.0-16.0) g/dL Hct 42.5 (37.0-47.0) % MCV 86.4 (80-100) fL MCH 28.3 (27.0-34.0) pg MCHC 32.7 L (33.0-35.0) g/dL Plt Count 299 (150-450) 10^3/uL Neut % (Auto) 73.3 (42.2-75.2) % Lymph % (Auto) 18.8 L (20.5-50.1) % [place] % (Auto) 5.7 (2-8) % Eos % (Auto) 2.0 (1.0-3.0) % Baso % (Auto) 0.2 (0.0-1.0) % PT (9.0-12.0) SEC INR (0.9-1.2) Sodium 140 (135-145) mmol/L Potassium 4.0 (3.6-5.0) mmol/L Chloride 101 (101-111) mmol/L Carbon Dioxide 28.0 (21.0-31.0) mmol/L Anion Gap 15.0 BUN 25 H (7-18) mg/dL Creatinine 1.3 (0.6-1.3) mg/dL Est Cr Clr Drug Dosing 27.78 mL/min Estimated GFR (MDRD) 40 BUN/Creatinine Ratio 19.23 Glucose 135 H (74-105) mg/dL Lactic Acid 4.2 H (0.5-2.2) mmol/L Calcium 9.0 (8.4-10.2) mg/dl Total Bilirubin 0.7 (0.2-1.0) mg/dL AST 26 (10-42) IU/L ALT 21 (10-60) IU/L Alkaline Phosphatase 75 (42-121) IU/L Troponin I < 0.02 (0.00-0.02) ng/ml B-Natriuretic Peptide 288 H (0-100) pg/ml Total Protein 8.0 (6.7-8.2) g/dl Albumin 3.8 (3.2-5.5) g/dl Globulin 4.2 Albumin/Globulin Ratio 0.90 Urine Color (YELLOW) Urine Appearance (CLEAR) Urine pH (5.0-9.0) Ur Specific [place] (1.005-1.030) Urine Protein (NEGATIVE) Urine Glucose (UA) (NEGATIVE) Urine Ketones (NEGATIVE) Urine Occult Blood (NEGATIVE) Urine Nitrite (NEGATIVE) Urine Bilirubin (NEGATIVE) Urine Urobilinogen (0.2-1.0) mg/dL Ur Leukocyte Esterase (NEGATIVE) Urine RBC /HPF Urine WBC (0-5/HPF) /HPF Ur Epithelial Cells /HPF Urine Bacteria (0-FEW/HPF) /HPF Urinalysis Comment 03/15/18 03/15/18 Range/Units 01:05 02:35 WBC (5.0-10.0) 10^3/uL RBC (4.2-5.4) 10^6/uL Hgb (12.0-16.0) g/dL Hct (37.0-47.0) % MCV (80-100) fL MCH (27.0-34.0) pg MCHC (33.0-35.0) g/dL Plt Count (150-450) 10^3/uL Neut % (Auto) (42.2-75.2) % Lymph % (Auto) (20.5-50.1) % [place] % (Auto) (2-8) % Eos % (Auto) (1.0-3.0) % Baso % (Auto) (0.0-1.0) % PT 20.5 H (9.0-12.0) SEC INR 2.1 H (0.9-1.2) Sodium (135-145) mmol/L Potassium (3.6-5.0) mmol/L Chloride (101-111) mmol/L Carbon Dioxide (21.0-31.0) mmol/L Anion Gap BUN (7-18) mg/dL Creatinine (0.6-1.3) mg/dL Est Cr Clr Drug Dosing mL/min Estimated GFR (MDRD) BUN/Creatinine Ratio Glucose (74-105) mg/dL Lactic Acid (0.5-2.2) mmol/L Calcium (8.4-10.2) mg/dl Total Bilirubin (0.2-1.0) mg/dL AST (10-42) IU/L ALT (10-60) IU/L Alkaline Phosphatase (42-121) IU/L Troponin I (0.00-0.02) ng/ml B-Natriuretic Peptide (0-100) pg/ml Total Protein (6.7-8.2) g/dl Albumin (3.2-5.5) g/dl Globulin Albumin/Globulin Ratio Urine Color Yellow (YELLOW) Urine Appearance Clear (CLEAR) Urine pH 6.5 (5.0-9.0) Ur Specific [place] 1.015 (1.005-1.030) Urine Protein Negative (NEGATIVE) Urine Glucose (UA) Negative (NEGATIVE) Urine Ketones Negative (NEGATIVE) Urine Occult Blood Negative (NEGATIVE) Urine Nitrite Negative (NEGATIVE) Urine Bilirubin Negative (NEGATIVE) Urine Urobilinogen 0.2 (0.2-1.0) mg/dL Ur Leukocyte Esterase Trace H (NEGATIVE) Urine RBC 0-5 /HPF Urine WBC 0-5 (0-5/HPF) /HPF Ur Epithelial Cells Moderate H /HPF Urine Bacteria Moderate H (0-FEW/HPF) /HPF Urinalysis Comment Meds: Medications Discontinued Medications Generic Name Dose Route Start Last Admin Trade Name Claudia PRN Reason Stop Dose Admin Acetaminophen 650 mg 03/15/18 02:57 03/15/18 03:07 Tylenol PO 03/15/18 02:58 650 mg NOW ONE Administration Furosemide 20 mg 03/15/18 01:56 03/15/18 02:15 Lasix IVPUSH 03/15/18 01:57 20 mg ONETIME ONE Administration Lorazepam 0.5 mg 03/15/18 02:01 03/15/18 02:07 Ativan IVPUSH 03/15/18 02:02 0.5 mg ONETIME ONE Administration Metoclopramide HCl 10 mg 03/15/18 01:56 03/15/18 02:12 Reglan IVPUSH 03/15/18 01:57 10 mg ONETIME ONE Administration Departure - Departure Time of Disposition: 03:36 Disposition: Home, Self-Care 01 Condition: Undetermined Clinical Impression: Chills, Atrial fibrillation with controlled ventricular response - Discharge Information Instructions: Shortness of Breath, Adult, [id number] Referrals: Renetta Gibson PA [Primary Care Provider] - Forms: ED Department Discharge Additional Instructions: rest light activity follow up if symptoms worsen
[2018-03-15 03:12] VITALS: BP 124/53
--- NOTE | 2018-03-18 12:22 | EKG ---
03/15/2018 - EVA TREVINO M - FINDINGS: This 12-lead EKG shows baseline artifacts throughout many of the leads, both limb and precordial. EKG shows an atrial fibrillation with an average ventricular rate of 118 with a range of 91 to 133. Normal axis. No acute ST-segment or T-wave changes. Poor R-wave progression. [facility] /[id number]
== END 2018-03-15 03:44 | disposition home or self-care (01) ==
LOC: DL.ED 00:53
DX: I48.91 Unspecified atrial fibrillation (principal); R68.83 Chills (without fever); E78.00 Pure hypercholesterolemia, unspecified; I10 Essential (primary) hypertension; E11.9 Type 2 diabetes mellitus without complications; Z88.8 Allergy status to other drugs, medicaments and biological substances; Z88.1 Allergy status to other antibiotic agents; Z88.5 Allergy status to narcotic agent; Z79.82 Long term (current) use of aspirin; Z79.899 Other long term (current) drug therapy
CPT/HCPCS: 36415; 71045; 80053; 81001; 83605; 83880; 84484; 85025; 85610; 87040; 93005; 93010; 96374; 96375; 99285; A9270; J1940; J2060; J2765

== ENCOUNTER 2018-03-15 10:20 | Emergency (ER) | payer MEDICARE, OTHER ==
--- NOTE | 2018-03-15 10:42 | EDM.PDOC ---
ED HPI GENERAL MEDICAL PROBLEM - General Stated Complaint: WEAK, CAN'T MOVE Time Seen by Provider: 03/15/18 10:30 Source of Information: Reports: Patient History Limitations: Reports: No Limitations - History of Present Illness INITIAL COMMENTS - FREE TEXT/NARRATIVE: This 77 yo female patient was brought to the ED by her due to increased shortness and weakness. The patient was seen last night and discharged. The patient and her report that she has gotten much worse since last night. The patient reports that she has not taken her medications yet today (normally takes her cardizem at 0900). Duration: Day(s):, Constant, Getting Worse Location: Reports: Chest, Generalized Quality: Reports: Other Severity: Severe Improves with: Reports: None Worsens with: Reports: None Associated Symptoms: Reports: Shortness of Breath, Weakness - Related Data Allergies Allergy/AdvReac Type Severity Reaction Status Date / Time amlodipine besylate Allergy Tachycardia Verified 03/15/18 10:52 [From Norvasc] amoxicillin trihydrate Allergy Diarrhea Verified 03/15/18 10:52 [From Amoxil] Iodine and Iodide Containing Allergy Redness Verified 03/15/18 10:52 Produc levofloxacin [From Levaquin] Allergy Hives Verified 03/15/18 10:52 nickel Allergy Rash Verified 03/15/18 10:52 pravastatin Allergy sore Verified 03/15/18 10:52 muscles simvastatin [From Zocor] Allergy Muscle Verified 03/15/18 10:52 Aches atorvastatin calcium AdvReac Nausea Verified 03/15/18 10:52 [From Lipitor] dronedarone AdvReac Nausea and Verified 03/15/18 10:52 Vomiting hydrocodone AdvReac Nausea and Verified 03/15/18 10:52 Vomiting tramadol AdvReac Nausea and Verified 03/15/18 10:52 Vomiting Home Meds: Home Meds Aspirin [Adult Low Dose Aspirin EC] 81 mg PO DAILY 10/11/14 [History] Diltiazem HCl [Diltiazem 24Hr ER] 300 mg PO DAILY 10/11/14 [History] Losartan/Hydrochlorothiazide [Losartan-HCTZ 100-25 MG] 1 tab PO DAILY 10/11/14 [ History] Warfarin Sodium [Jantoven] 5 mg PO ASDIRECTED 10/11/14 [History] Metoprolol Tartrate [Lopressor] 100 mg PO BID 11/19/14 [History] Cyanocobalamin (Vitamin B-12) [Cyanocobalamin Injection] 1,000 mcg IM Q30D 12/09 [History] Warfarin Sodium [Jantoven] 2.5 mg PO ASDIRECTED 12/09/16 [History] glyBURIDE [Glyburide] 5 mg PO DAILY #10 tablet 12/13/16 [Rx] Past Medical History HEENT History: Reports: Impaired Vision Cardiovascular History: Reports: Afib, CAD, High Cholesterol, Hypertension, Other (See Below) Other Cardiovascular History: Paroxysmal Atrial Fibrillation, Aortic Stenosis Respiratory History: Reports: Asthma, Sleep Apnea Genitourinary History: Reports: Other (See Below) Other Genitourinary History: mild stress incontinence when coughing 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 (See Below) 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 MACHINE 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 History: Endometrial Hyperplasia; Dilatation & Curettage Musculoskeletal History: Reports: Arthritis Endocrine/Metabolic History: Reports: Diabetes, Type II Hematologic History: Reports: B12 Deficiency - Past Surgical History Cardiovascular Surgical History: Reports: Coronary Artery Stent, Valve Replacement, Other (See Below) GI Surgical History: Reports: Hernia, Abdominal Female Surgical History: Reports: Hysterectomy, Other (See Below) Social & Family History - Family History Family Medical History: Noncontributory Cardiac: Reports: Hypertension - Caffeine Use Caffeine Use: Reports: Coffee - Living Situation & Occupation Living situation: Reports: Occupation: Retired ED ROS GENERAL - Review of Systems Review Of Systems: ROS reveals no pertinent complaints other than HPI. ED EXAM, GENERAL - Physical Exam Exam: See Below Exam Limited By: No Limitations General Appearance: Alert, WD/WN, Moderate Distress, Obese Eye Exam: Bilateral Eye: EOMI, Normal Inspection, PERRL Ears: Normal External Exam, Normal Canal, Hearing Grossly Normal, Normal TMs Nose: Normal Inspection, Normal Mucosa, No Blood Throat/Mouth: Normal Inspection, Normal Lips, Normal Teeth, Normal Gums, Normal Oropharynx, Normal Voice, No Airway Compromise Head: Atraumatic, Normocephalic Neck: Normal Inspection, Supple, Non-Tender, Full Range of Motion Respiratory/Chest: Decreased Breath Sounds, Rhonchi Cardiovascular: Tachycardia GI/Abdominal: Normal Bowel Sounds, Soft, Non-Tender, No Organomegaly, No Distention, No Abnormal Bruit, No Mass, Other (obese) (Female) Exam: Deferred Rectal (Female) Exam: Deferred Back Exam: Normal Inspection, Full Range of Motion, NT Extremities: Normal Inspection, Normal Range of Motion, Non-Tender, Normal Capillary Refill, No Pedal Edema Neurological: Alert, Oriented, CN II-XII Intact, Normal Cognition, Normal Gait, Normal Reflexes, No Motor/Sensory Deficits Psychiatric: Normal Affect, Normal Mood Skin Exam: Warm, Dry, Intact, No Rash, Erythema (left lower leg), Increased Warmth (left lower leg) Lymphatic: No Adenopathy Course - Vital Signs Last Recorded V/S: Last Vital Signs Temp 38.8 C H 03/15/18 10:30 Pulse 130 H 03/15/18 10:30 Resp 31 H 03/15/18 10:30 BP 123/76 03/15/18 10:30 Pulse Ox 90 L 03/15/18 10:30 - Orders/Labs/Meds Labs: Laboratory Tests 03/15/18 03/15/18 03/15/18 Range/Units 10:55 10:55 10:55 WBC 24.9 H (5.0-10.0) 10^3/uL RBC 4.94 (4.2-5.4) 10^6/uL Hgb 14.0 (12.0-16.0) g/dL Hct 42.0 (37.0-47.0) % MCV 85.0 (80-100) fL MCH 28.3 (27.0-34.0) pg MCHC 33.3 (33.0-35.0) g/dL Plt Count 239 (150-450) 10^3/uL Neut % (Auto) 94.3 H (42.2-75.2) % Lymph % (Auto) 2.7 L (20.5-50.1) % [place] % (Auto) 2.9 (2-8) % Eos % (Auto) 0.0 L (1.0-3.0) % Baso % (Auto) 0.1 (0.0-1.0) % PT (9.0-12.0) SEC INR (0.9-1.2) ABG pH (7.35-7.45) ABG pCO2 (35-45) mmHg ABG pO2 (70-100) mmHg ABG HCO3 (22-26) mmol/L ABG O2 Saturation (95-100) % ABG Base Excess ((-2)-(+3)) mmol/L O2 Delivery Device Oxygen Flow Rate Sodium (135-145) mmol/L Potassium (3.6-5.0) mmol/L Chloride (101-111) mmol/L Carbon Dioxide (21.0-31.0) mmol/L Anion Gap BUN (7-18) mg/dL Creatinine (0.6-1.3) mg/dL Est Cr Clr Drug Dosing mL/min Estimated GFR (MDRD) BUN/Creatinine Ratio Glucose (74-105) mg/dL Lactic Acid 2.5 H (0.5-2.2) mmol/L Calcium (8.4-10.2) mg/dl Total Bilirubin (0.2-1.0) mg/dL AST (10-42) IU/L ALT (10-60) IU/L Alkaline Phosphatase (42-121) IU/L Troponin I (0.00-0.02) ng/ml B-Natriuretic Peptide 442 H (0-100) pg/ml Total Protein (6.7-8.2) g/dl Albumin (3.2-5.5) g/dl Globulin Albumin/Globulin Ratio Urine Color (YELLOW) Urine Appearance (CLEAR) Urine pH (5.0-9.0) Ur Specific [place] (1.005-1.030) Urine Protein (NEGATIVE) Urine Glucose (UA) (NEGATIVE) Urine Ketones (NEGATIVE) Urine Occult Blood (NEGATIVE) Urine Nitrite (NEGATIVE) Urine Bilirubin (NEGATIVE) Urine Urobilinogen (0.2-1.0) mg/dL Ur Leukocyte Esterase (NEGATIVE) Urine RBC /HPF Urine WBC (0-5/HPF) /HPF Ur Epithelial Cells /HPF Amorphous Sediment (0/HPF) /HPF Urine Bacteria (0-FEW/HPF) /HPF Urine Mucus /LPF 03/15/18 03/15/18 03/15/18 Range/Units 10:55 11:30 11:50 WBC (5.0-10.0) 10^3/uL RBC (4.2-5.4) 10^6/uL Hgb (12.0-16.0) g/dL Hct (37.0-47.0) % MCV (80-100) fL MCH (27.0-34.0) pg MCHC (33.0-35.0) g/dL Plt Count (150-450) 10^3/uL Neut % (Auto) (42.2-75.2) % Lymph % (Auto) (20.5-50.1) % Churchill % (Auto) (2-8) % Eos % (Auto) (1.0-3.0) % Baso % (Auto) (0.0-1.0) % PT 23.4 H (9.0-12.0) SEC INR 2.4 H (0.9-1.2) ABG pH 7.47 H (7.35-7.45) ABG pCO2 32 L (35-45) mmHg ABG pO2 80 (70-100) mmHg ABG HCO3 23.0 (22-26) mmol/L ABG O2 Saturation 95 (95-100) % ABG Base Excess 0 ((-2)-(+3)) mmol/L O2 Delivery Device Room air Oxygen Flow Rate 2 Sodium 136 (135-145) mmol/L Potassium 3.9 (3.6-5.0) mmol/L Chloride 100 L (101-111) mmol/L Carbon Dioxide 23.0 (21.0-31.0) mmol/L Anion Gap 16.9 BUN 26 H (7-18) mg/dL Creatinine 1.4 H (0.6-1.3) mg/dL Est Cr Clr Drug Dosing 25.80 mL/min Estimated GFR (MDRD) 37 BUN/Creatinine Ratio 18.57 Glucose 196 H (74-105) mg/dL Lactic Acid (0.5-2.2) mmol/L Calcium 9.0 (8.4-10.2) mg/dl Total Bilirubin 1.3 H (0.2-1.0) mg/dL AST 30 (10-42) IU/L ALT 21 (10-60) IU/L Alkaline Phosphatase 67 (42-121) IU/L Troponin I 0.03 H* (0.00-0.02) ng/ml B-Natriuretic Peptide (0-100) pg/ml Total Protein 8.0 (6.7-8.2) g/dl Albumin 3.9 (3.2-5.5) g/dl Globulin 4.1 Albumin/Globulin Ratio 0.95 Urine Color (YELLOW) Urine Appearance (CLEAR) Urine pH (5.0-9.0) Ur Specific [place] (1.005-1.030) Urine Protein (NEGATIVE) Urine Glucose (UA) (NEGATIVE) Urine Ketones (NEGATIVE) Urine Occult Blood (NEGATIVE) Urine Nitrite (NEGATIVE) Urine Bilirubin (NEGATIVE) Urine Urobilinogen (0.2-1.0) mg/dL Ur Leukocyte Esterase (NEGATIVE) Urine RBC /HPF Urine WBC (0-5/HPF) /HPF Ur Epithelial Cells /HPF Amorphous Sediment (0/HPF) /HPF Urine Bacteria (0-FEW/HPF) /HPF Urine Mucus /LPF 03/15/18 Range/Units 12:41 WBC (5.0-10.0) 10^3/uL RBC (4.2-5.4) 10^6/uL Hgb (12.0-16.0) g/dL Hct (37.0-47.0) % MCV (80-100) fL MCH (27.0-34.0) pg MCHC (33.0-35.0) g/dL Plt Count (150-450) 10^3/uL Neut % (Auto) (42.2-75.2) % Lymph % (Auto) (20.5-50.1) % Churchill % (Auto) (2-8) % Eos % (Auto) (1.0-3.0) % Baso % (Auto) (0.0-1.0) % PT (9.0-12.0) SEC INR (0.9-1.2) ABG pH (7.35-7.45) ABG pCO2 (35-45) mmHg ABG pO2 (70-100) mmHg ABG HCO3 (22-26) mmol/L ABG O2 Saturation (95-100) % ABG Base Excess ((-2)-(+3)) mmol/L O2 Delivery Device Oxygen Flow Rate Sodium (135-145) mmol/L Potassium (3.6-5.0) mmol/L Chloride (101-111) mmol/L Carbon Dioxide (21.0-31.0) mmol/L Anion Gap BUN (7-18) mg/dL Creatinine (0.6-1.3) mg/dL Est Cr Clr Drug Dosing mL/min Estimated GFR (MDRD) BUN/Creatinine Ratio Glucose (74-105) mg/dL Lactic Acid (0.5-2.2) mmol/L Calcium (8.4-10.2) mg/dl Total Bilirubin (0.2-1.0) mg/dL AST (10-42) IU/L ALT (10-60) IU/L Alkaline Phosphatase (42-121) IU/L Troponin I (0.00-0.02) ng/ml B-Natriuretic Peptide (0-100) pg/ml Total Protein (6.7-8.2) g/dl Albumin (3.2-5.5) g/dl Globulin Albumin/Globulin Ratio Urine Color Dark yellow (YELLOW) Urine Appearance Slightly cloudy (CLEAR) Urine pH 5.5 (5.0-9.0) Ur Specific [place] 1.020 (1.005-1.030) Urine Protein 30 H (NEGATIVE) Urine Glucose (UA) Negative (NEGATIVE) Urine Ketones Negative (NEGATIVE) Urine Occult Blood Trace-lysed H (NEGATIVE) Urine Nitrite Negative (NEGATIVE) Urine Bilirubin Negative (NEGATIVE) Urine Urobilinogen 0.2 (0.2-1.0) mg/dL Ur Leukocyte Esterase Negative (NEGATIVE) Urine RBC 0-5 /HPF Urine WBC 0-5 (0-5/HPF) /HPF Ur Epithelial Cells Few /HPF Amorphous Sediment Rare (0/HPF) /HPF Urine Bacteria Rare (0-FEW/HPF) /HPF Urine Mucus Moderate H /LPF Meds: Medications Discontinued Medications Generic Name Dose Route Start Last Admin Trade Name Freq PRN Reason Stop Dose Admin Albuterol/Ipratropium 3 ml 03/15/18 10:32 03/15/18 12:41 Duoneb 3.0-0.5 Mg/3 Ml NEB 03/15/18 10:33 3 ml ONETIME ONE Administration Diltiazem HCl 20 mg 03/15/18 11:01 03/15/18 11:10 Diltiazem IVPUSH 03/15/18 11:02 20 mg ONETIME ONE Administration Diltiazem HCl 20 mg 03/15/18 12:16 03/15/18 12:32 Diltiazem IVPUSH 03/15/18 12:17 20 mg ONETIME ONE Administration Diltiazem HCl 300 mg 03/15/18 12:16 03/15/18 12:34 Cardizem Cd PO 03/15/18 12:17 360 mg ONETIME ONE Administration Vancomycin HCl 1 gm/ Sodium 250 mls @ 167 mls/hr 03/15/18 12:57 Chloride IV 03/15/18 14:26 ONETIME ONE Vancomycin HCl 1 gm/ Sodium 250 mls @ 167 mls/hr 03/15/18 13:15 03/15/18 13: 39 Chloride IV 03/15/18 14:44 167 mls/hr ONETIME ONE Administration Diltiazem HCl 125 mg/ Sodium 125 mls @ 5 mls/hr 03/15/18 13:22 03/15/18 13:39 Chloride IV 03/16/18 13:21 5 mg/hr .Q24H ONE 5 mls/hr Administration Protocol 5 MG/HR Meropenem 1 gm 03/15/18 13:00 03/15/18 13:39 Merrem IVPUSH 03/15/18 13:01 1 gm ONETIME ONE Administration Departure - Departure Time of Disposition: 14:13 Disposition: DC/Tfer to Acute Hospital 02 Condition: Serious Clinical Impression: Sepsis Qualifiers: Sepsis type: sepsis due to unspecified organism Qualified Code(s): A41.9 - Sepsis, unspecified organism - Discharge Information *PRESCRIPTION DRUG MONITORING PROGRAM REVIEWED*: Not Applicable *COPY OF PRESCRIPTION DRUG MONITORING REPORT IN PATIENT KAE: Not Applicable Referrals: Renetta Gibson PA [Primary Care Provider] - Care Plan Goals: The patient was transferred to [facility] in [place] for continued evaluation and further management. The patient was transported by [facility].
[2018-03-15 10:59] VITALS: BP 123/76
[2018-03-15] MEDS: Diltiazem 25 MG/5 ML SDV IVPUSH ONE ×2 (11:10→12:32)
[2018-03-15 11:22] LABS: ANION GAP 16.9
[2018-03-15 11:55] LABS: BASE EXCESS ARTERIAL 0 mmol/L ((-2)-(+3)); O2 DELIVERY DEVICE ROOM AIR; O2 SATURATION ARTERIAL 95 % (95-100); PCO2 ARTERIAL 32 mmHg (35-45); PO2 ARTERIAL 80 mmHg (70-100)
[2018-03-15 11:58] LABS: O2 FLOW RATE 2
[2018-03-15] MEDS: Diltiazem 180 MG Cap.CD PO ONE (12:34)
[2018-03-15] MEDS: Albuterol/Ipratropium 3.0-0.5 MG/3 ML Neb Soln NEB ONE (12:41)
[2018-03-15] MEDS: Meropenem 1 GM SDV IVPUSH ONE (13:39)
[2018-03-15] MEDS: Diltiazem 125 MG in Sodium Chloride 0.9% 100 ML IV ONE (13:39)
--- NOTE | 2018-03-18 12:28 | EKG ---
03/15/2018 - EVA TREVINO M - TIME: 10:48 p.m. FINDINGS: This is the second of two 12-lead EKGs. It demonstrates an atrial fibrillation with an average ventricular rate of 133, ventricular rate ranges from 97 to 183. Normal axis. No acute ST-segment or T-wave changes. Poor R- wave progression. Nonspecific changes maybe rate related. [facility] /[id number]
== END 2018-03-15 14:13 ==
LOC: DL.ED 10:20
DX: A41.9 Sepsis, unspecified organism (principal); E78.00 Pure hypercholesterolemia, unspecified; I10 Essential (primary) hypertension; E11.9 Type 2 diabetes mellitus without complications; I48.91 Unspecified atrial fibrillation; Z88.8 Allergy status to other drugs, medicaments and biological substances; Z91.041 Radiographic dye allergy status; Z88.1 Allergy status to other antibiotic agents; Z88.5 Allergy status to narcotic agent; Z79.82 Long term (current) use of aspirin; Z79.899 Other long term (current) drug therapy; Z79.01 Long term (current) use of anticoagulants
CPT/HCPCS: 36415; 36600; 71045; 80053; 81001; 82803; 83605; 83880; 84484; 85025; 85610; 87040; 93005; 93010; 96365; 96368; 96375; 96376; 99285; A9270; J2185; J3370; J3490; J7050; 96374; 99283; 99284; J1940; J2060; J2765

== ENCOUNTER 2018-11-07 21:34 | Inpatient (IN) | payer MEDICARE, OTHER ==
[2018-11-07] MEDS ORDERED: Acetaminophen 325 MG Tab PO ONE (21:37)
[2018-11-07] MEDS ORDERED: LORazepam 2 MG/ML Syringe IVPUSH ONE (21:41)
[2018-11-07] MEDS ORDERED: Metoclopramide 10 MG/2 ML SDV IVPUSH ONE (21:52)
[2018-11-07] MEDS ORDERED: Ibuprofen 600 MG Tab PO ONE (23:06)
[2018-11-07] MEDS ORDERED: cefTRIAXone 1 GM in Sodium Chloride 0.9% 50 ML IV ONE (23:10)
--- NOTE | 2018-11-07 23:17 | EDM.PDOC ---
ED HPI GENERAL MEDICAL PROBLEM - General Chief Complaint: General Stated Complaint: COLD, CANT WARM UP Time Seen by Provider: 11/07/18 22:00 Source of Information: Reports: Patient, Family History Limitations: Reports: No Limitations - History of Present Illness INITIAL COMMENTS - FREE TEXT/NARRATIVE: ED with spouse, c/o onset feeling could aout 45 minutes prior while at casino for supper, By time down with supper was starting to shake, ED per candy. Patient anxious, rigors, hyperventilating. Stated felet fine today. Spuse reports no previous sx. Pat hx chronic a-fib, Htn. Has had more edema lately. No reported SOB, GI sx, No recent cough or SOB. No chest pain. - Related Data Allergies Allergy/AdvReac Type Severity Reaction Status Date / Time amlodipine besylate Allergy Tachycardia Verified 03/15/18 10:52 [From Norvasc] amoxicillin trihydrate Allergy Diarrhea Verified 03/15/18 10:52 [From Amoxil] Iodine and Iodide Containing Allergy Redness Verified 03/15/18 10:52 Produc levofloxacin [From Levaquin] Allergy Hives Verified 03/15/18 10:52 nickel Allergy Rash Verified 03/15/18 10:52 pravastatin Allergy sore Verified 03/15/18 10:52 muscles simvastatin [From Zocor] Allergy Muscle Verified 03/15/18 10:52 Aches atorvastatin calcium AdvReac Nausea Verified 03/15/18 10:52 [From Lipitor] dronedarone AdvReac Nausea and Verified 03/15/18 10:52 Vomiting hydrocodone AdvReac Nausea and Verified 03/15/18 10:52 Vomiting tramadol AdvReac Nausea and Verified 03/15/18 10:52 Vomiting Home Meds: Home Meds Aspirin [Adult Low Dose Aspirin EC] 81 mg PO DAILY 10/11/14 [History] Diltiazem HCl [Diltiazem 24Hr ER] 300 mg PO DAILY 10/11/14 [History] Losartan/Hydrochlorothiazide [Losartan-HCTZ 100-25 MG] 1 tab PO DAILY 10/11/14 [ History] Warfarin Sodium [Jantoven] 5 mg PO ASDIRECTED 10/11/14 [History] Metoprolol Tartrate [Lopressor] 100 mg PO BID 11/19/14 [History] Cyanocobalamin (Vitamin B-12) [Cyanocobalamin Injection] 1,000 mcg IM Q30D 12/09 [History] Warfarin Sodium [Jantoven] 2.5 mg PO ASDIRECTED 12/09/16 [History] glyBURIDE [Glyburide] 5 mg PO DAILY #10 tablet 12/13/16 [Rx] Past Medical History HEENT History: Reports: Impaired Vision Cardiovascular History: Reports: Afib, CAD, High Cholesterol, Hypertension, Other (See Below) Other Cardiovascular History: Paroxysmal Atrial Fibrillation, Aortic Stenosis Respiratory History: Reports: Asthma, Sleep Apnea Genitourinary History: Reports: Other (See Below) Other Genitourinary History: mild stress incontinence when coughing 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 (See Below) Other ELECTRONICS REPAIR TECHNICIAN History: Endometrial Hyperplasia; Dilatation & Curettage Musculoskeletal History: Reports: Arthritis Endocrine/Metabolic History: Reports: Diabetes, Type II Hematologic History: Reports: B12 Deficiency - Past Surgical History Cardiovascular Surgical History: Reports: Coronary Artery Stent, Valve Replacement, Other (See Below) GI Surgical History: Reports: Hernia, Abdominal Female Surgical History: Reports: Hysterectomy, Other (See Below) Social & Family History - Family History Family Medical History: Noncontributory Cardiac: Reports: Hypertension - Caffeine Use Caffeine Use: Reports: Coffee - Living Situation & Occupation Living situation: Reports: Occupation: Retired ED ROS GENERAL - Review of Systems Review Of Systems: ROS reveals no pertinent complaints other than HPI. Constitutional: Reports: Chills HEENT: Reports: Glasses Respiratory: Reports: No Symptoms Cardiovascular: Reports: Edema. Denies: Chest Pain, Blood Pressure Problem Endocrine: Reports: No Symptoms GI/Abdominal: Reports: Nausea : Reports: Frequency Musculoskeletal: Reports: No Symptoms Skin: Reports: No Symptoms Neurological: Reports: No Symptoms Psychiatric: Reports: Anxiety ED EXAM, GENERAL - Physical Exam Exam: See Below Exam Limited By: No Limitations General Appearance: Alert, Anxious, Moderate Distress, Obese Eye Exam: Bilateral Eye: EOMI, PERRL Ears: Normal External Exam, Normal TMs Nose: Normal Inspection Throat/Mouth: Normal Inspection Head: Atraumatic, Normocephalic Neck: Normal Inspection, Full Range of Motion Respiratory/Chest: No Respiratory Distress, Decreased Breath Sounds. No: Rales , Rhonchi, Wheezing Cardiovascular: Normal Peripheral Pulses, Regular Rate, Rhythm GI/Abdominal: Normal Bowel Sounds Extremities: Pedal Edema (2+ to mid calf) Neurological: Alert, Oriented, Normal Cognition Psychiatric: Normal Affect, Anxious Skin Exam: Warm, Dry, Normal Color, Pallor Course - Vital Signs Last Recorded V/S: Last Vital Signs Temp 98.5 F 11/08/18 04:00 Pulse 80 11/08/18 04:00 Resp 28 H 11/08/18 04:00 BP 106/66 11/08/18 04:00 Pulse Ox 97 11/08/18 04:00 - Orders/Labs/Meds Orders: Active Orders 24 hr Category Date Time Status Glucose [Blood Glucose Check, Bedside] [RC] QIDACANDBED Care 11/08/18 00:36 Active BASIC METABOLIC PANEL,BMP [CHEM] AM Lab 11/08/18 05:11 Ordered BASIC METABOLIC PANEL,BMP [CHEM] AM Lab 11/09/18 05:11 Ordered BASIC METABOLIC PANEL,BMP [CHEM] AM Lab 11/10/18 05:11 Ordered BASIC METABOLIC PANEL,BMP [CHEM] AM Lab 11/11/18 05:11 Ordered BASIC METABOLIC PANEL,BMP [CHEM] AM Lab 11/12/18 05:11 Ordered CBC WITH AUTO DIFF [HEME] AM Lab 11/08/18 05:11 Ordered CBC WITH AUTO DIFF [HEME] AM Lab 11/09/18 05:11 Ordered CBC WITH AUTO DIFF [HEME] AM Lab 11/10/18 05:11 Ordered CBC WITH AUTO DIFF [HEME] AM Lab 11/11/18 05:11 Ordered CBC WITH AUTO DIFF [HEME] AM Lab 11/12/18 05:11 Ordered CULTURE BLOOD [BC] Stat Lab 11/07/18 21:46 Received CULTURE BLOOD [BC] Stat Lab 11/07/18 22:01 Results CULTURE SPUTUM + SMEAR [RM] Routine Lab 11/08/18 00:30 Ordered INR,PT,PROTHROMBIN TIME [COAG] AM Lab 11/08/18 05:11 Ordered INR,PT,PROTHROMBIN TIME [COAG] AM Lab 11/09/18 05:11 Ordered INR,PT,PROTHROMBIN TIME [COAG] AM Lab 11/10/18 05:11 Ordered INR,PT,PROTHROMBIN TIME [COAG] AM Lab 11/11/18 05:11 Ordered INR,PT,PROTHROMBIN TIME [COAG] AM Lab 11/12/18 05:11 Ordered LACTIC ACID [CHEM] Routine Lab 11/08/18 05:00 Ordered Aspirin [Halfprin] Med 11/08/18 09:00 Active 81 mg PO DAILY Azithromycin [Zithromax] 500 mg Med 11/08/18 00:00 Active Sodium Chloride 0.9% [Normal Saline] 250 ml IV Q24H Diltiazem [Cardizem CD] Med 11/08/18 09:00 Active 180 mg PO DAILY Insulin Lispro [HumaLOG] Med 11/08/18 07:00 Active See Protocol SUBCUT ACBED Losartan [Cozaar] Med 11/08/18 09:00 Active 100 mg PO DAILY Metoprolol Tartrate [Lopressor] Med 11/08/18 09:00 Active 100 mg PO BID NS + KCl 20mEq/L [Normal Saline with 20 mEq KCl] 1,000 Med 11/08/18 00:45 Active ml IV ASDIRECTED Pharmacy to Dose - Warfarin Med 11/08/18 01:00 Pending 1 dose .XX ASDIRECTED cefTRIAXone [Rocephin] 1 gm Med 11/08/18 23:00 Active Sodium Chloride 0.9% [Normal Saline] 50 ml IV Q24H glyBURIDE [Micronase] Med 11/08/18 08:00 Active 5 mg PO DAILY@0800 Blood Culture x2 Reflex Set [OM.PC] Stat Oth 11/07/18 21:41 Ordered Medication Orders Acetaminophen (Tylenol) 650 mg PO Q4H PRN PRN Reason: Pain (Mild 1-3)/fever Aspirin (Halfprin) 81 mg PO DAILY ÁNGEL Diltiazem HCl (Cardizem Cd) 180 mg PO DAILY ÁNGEL Diltiazem HCl (Cardizem Cd) 120 mg PO DAILY ÁNGEL Glyburide (Micronase) 5 mg PO DAILY@0800 ÁNGEL Hydrochlorothiazide (Hydrochlorothiazide) 25 mg PO DAILY ÁNGEL Azithromycin 500 mg/ Sodium (Chloride) 250 mls @ 250 mls/hr IV Q24H ÁNGEL Last Infusion: 11/08/18 03:34 Dose: 125 mls/hr Admin: 11/08/18 01:23 Dose: 250 mls/hr Ceftriaxone Sodium 1 gm/ (Sodium Chloride) 50 mls @ 50 mls/hr IV Q24H ÁNGEL Potassium Chloride/Sodium Chloride (Normal Saline With 20 Meq Kcl) 1,000 mls @ 100 mls/hr IV ASDIRECTED ÁNGEL Stop: 11/08/18 10:46 Last Admin: 11/08/18 01:10 Dose: 100 mls/hr Ibuprofen (Motrin) 400 mg PO Q6H PRN PRN Reason: Pain (mild 1-3) Insulin Human Lispro (Humalog) 0 unit SUBCUT ACBED ON LICENSE OF [facility]; Protocol Losartan Potassium (Cozaar) 100 mg PO DAILY ON LICENSE OF [facility] Metoprolol Tartrate (Lopressor) 100 mg PO BID ON LICENSE OF [facility] Morphine Sulfate (Morphine) 1 mg IVPUSH Q2H PRN PRN Reason: Pain (severe 7-10) Ondansetron HCl (Zofran Odt) 4 mg PO Q4H PRN PRN Reason: nausea, able to take PO Ondansetron HCl (Zofran) 4 mg IVPUSH Q6H PRN PRN Reason: Nausea/Vomiting Oxycodone HCl (Oxycodone) 5 mg PO Q4H PRN PRN Reason: Pain (moderate 4-6) Sodium Chloride (Saline Flush) 10 ml FLUSH ASDIRECTED PRN PRN Reason: Keep Vein Open Warfarin Sodium (Pharmacy To Dose - Warfarin) 1 dose .XX ASDIRECTED ON LICENSE OF [facility] Zolpidem Tartrate (Ambien) 5 mg PO BEDTIME PRN PRN Reason: Sleep Labs: Laboratory Tests 11/07/18 11/07/18 11/07/18 Range/Units 21:45 21:46 21:46 WBC 16.3 H (5.0-10.0) 10^3/uL RBC 4.89 (4.2-5.4) 10^6/uL Hgb 13.9 (12.0-16.0) g/dL Hct 42.2 (37.0-47.0) % MCV 86.3 (80-100) fL MCH 28.4 (27.0-34.0) pg MCHC 32.9 L (33.0-35.0) g/dL Plt Count 344 D (150-450) 10^3/uL Neut % (Auto) 80.7 H (42.2-75.2) % Lymph % (Auto) 12.3 L (20.5-50.1) % [place] % (Auto) 4.8 (2-8) % Eos % (Auto) 1.9 (1.0-3.0) % Baso % (Auto) 0.3 (0.0-1.0) % PT (9.0-12.0) SEC INR (0.9-1.2) D-Dimer, Quantitative (0-400) ng/mL Sodium 139 (135-145) mmol/L Potassium 4.3 (3.6-5.0) mmol/L Chloride 103 (101-111) mmol/L Carbon Dioxide 22.0 (21.0-31.0) mmol/L Anion Gap 18.3 BUN 24 H (7-18) mg/dL Creatinine 1.2 (0.6-1.3) mg/dL Est Cr Clr Drug Dosing TNP Estimated GFR (MDRD) 44 BUN/Creatinine Ratio 20.00 Glucose 162 H (74-105) mg/dL POC Glucose 164 H (83-110) mg/dl Lactic Acid (0.5-2.2) mmol/L Calcium 8.9 (8.4-10.2) mg/dl Total Bilirubin 0.7 (0.2-1.0) mg/dL AST 28 (10-42) IU/L ALT 17 (10-60) IU/L Alkaline Phosphatase 76 (42-121) IU/L CK-MB (CK-2) (0.4-4.7) ng/mL Troponin I (0.00-0.02) ng/ml B-Natriuretic Peptide (0-100) pg/ml Total Protein 7.1 (6.7-8.2) g/dl Albumin 3.4 (3.2-5.5) g/dl Globulin 3.7 Albumin/Globulin Ratio 0.92 Amylase (28-100) U/L Lipase (22-51) U/L Urine Color (YELLOW) Urine Appearance (CLEAR) Urine pH (5.0-9.0) Ur Specific [place] (1.005-1.030) Urine Protein (NEGATIVE) Urine Glucose (UA) (NEGATIVE) Urine Ketones (NEGATIVE) Urine Occult Blood (NEGATIVE) Urine Nitrite (NEGATIVE) Urine Bilirubin (NEGATIVE) Urine Urobilinogen (0.2-1.0) mg/dL Ur Leukocyte Esterase (NEGATIVE) 11/07/18 11/07/18 11/07/18 Range/Units 21:46 21:46 21:46 WBC (5.0-10.0) 10^3/uL RBC (4.2-5.4) 10^6/uL Hgb (12.0-16.0) g/dL Hct (37.0-47.0) % MCV (80-100) fL MCH (27.0-34.0) pg MCHC (33.0-35.0) g/dL Plt Count (150-450) 10^3/uL Neut % (Auto) (42.2-75.2) % Lymph % (Auto) (20.5-50.1) % [place] % (Auto) (2-8) % Eos % (Auto) (1.0-3.0) % Baso % (Auto) (0.0-1.0) % PT 24.7 H (9.0-12.0) SEC INR 2.5 H (0.9-1.2) D-Dimer, Quantitative 333 (0-400) ng/mL Sodium (135-145) mmol/L Potassium (3.6-5.0) mmol/L Chloride (101-111) mmol/L Carbon Dioxide (21.0-31.0) mmol/L Anion Gap BUN (7-18) mg/dL Creatinine (0.6-1.3) mg/dL Est Cr Clr Drug Dosing Estimated GFR (MDRD) BUN/Creatinine Ratio Glucose (74-105) mg/dL POC Glucose (83-110) mg/dl Lactic Acid 3.5 H (0.5-2.2) mmol/L Calcium (8.4-10.2) mg/dl Total Bilirubin (0.2-1.0) mg/dL AST (10-42) IU/L ALT (10-60) IU/L Alkaline Phosphatase (42-121) IU/L CK-MB (CK-2) 1.60 (0.4-4.7) ng/mL Troponin I (0.00-0.02) ng/ml B-Natriuretic Peptide (0-100) pg/ml Total Protein (6.7-8.2) g/dl Albumin (3.2-5.5) g/dl Globulin Albumin/Globulin Ratio Amylase (28-100) U/L Lipase (22-51) U/L Urine Color (YELLOW) Urine Appearance (CLEAR) Urine pH (5.0-9.0) Ur Specific [place] (1.005-1.030) Urine Protein (NEGATIVE) Urine Glucose (UA) (NEGATIVE) Urine Ketones (NEGATIVE) Urine Occult Blood (NEGATIVE) Urine Nitrite (NEGATIVE) Urine Bilirubin (NEGATIVE) Urine Urobilinogen (0.2-1.0) mg/dL Ur Leukocyte Esterase (NEGATIVE) 11/07/18 11/07/18 11/07/18 Range/Units 21:46 21:46 22:32 WBC (5.0-10.0) 10^3/uL RBC (4.2-5.4) 10^6/uL Hgb (12.0-16.0) g/dL Hct (37.0-47.0) % MCV (80-100) fL MCH (27.0-34.0) pg MCHC (33.0-35.0) g/dL Plt Count (150-450) 10^3/uL Neut % (Auto) (42.2-75.2) % Lymph % (Auto) (20.5-50.1) % [place] % (Auto) (2-8) % Eos % (Auto) (1.0-3.0) % Baso % (Auto) (0.0-1.0) % PT (9.0-12.0) SEC INR (0.9-1.2) D-Dimer, Quantitative (0-400) ng/mL Sodium (135-145) mmol/L Potassium (3.6-5.0) mmol/L Chloride (101-111) mmol/L Carbon Dioxide (21.0-31.0) mmol/L Anion Gap BUN (7-18) mg/dL Creatinine (0.6-1.3) mg/dL Est Cr Clr Drug Dosing Estimated GFR (MDRD) BUN/Creatinine Ratio Glucose (74-105) mg/dL POC Glucose (83-110) mg/dl Lactic Acid (0.5-2.2) mmol/L Calcium (8.4-10.2) mg/dl Total Bilirubin (0.2-1.0) mg/dL AST (10-42) IU/L ALT (10-60) IU/L Alkaline Phosphatase (42-121) IU/L CK-MB (CK-2) (0.4-4.7) ng/mL Troponin I < 0.02 (0.00-0.02) ng/ml B-Natriuretic Peptide 182 H (0-100) pg/ml Total Protein (6.7-8.2) g/dl Albumin (3.2-5.5) g/dl Globulin Albumin/Globulin Ratio Amylase 22 L (28-100) U/L Lipase 26 (22-51) U/L Urine Color Yellow (YELLOW) Urine Appearance Slightly cloudy (CLEAR) Urine pH 5.0 (5.0-9.0) Ur Specific [place] 1.025 (1.005-1.030) Urine Protein Negative (NEGATIVE) Urine Glucose (UA) Negative (NEGATIVE) Urine Ketones Negative (NEGATIVE) Urine Occult Blood Negative (NEGATIVE) Urine Nitrite Negative (NEGATIVE) Urine Bilirubin Negative (NEGATIVE) Urine Urobilinogen 0.2 (0.2-1.0) mg/dL Ur Leukocyte Esterase Negative (NEGATIVE) Meds: Medications Generic Name Dose Route Start Last Admin Trade Name Freq PRN Reason Stop Dose Admin Acetaminophen 650 mg 11/08/18 00:47 Tylenol PO Q4H PRN Pain (Mild 1-3)/fever Aspirin 81 mg 11/08/18 09:00 Halfprin PO DAILY ON LICENSE OF [facility] Diltiazem HCl 180 mg 11/08/18 09:00 Cardizem Cd PO DAILY ON LICENSE OF [facility] Diltiazem HCl 120 mg 11/08/18 09:00 Cardizem Cd PO DAILY ON LICENSE OF [facility] Glyburide 5 mg 11/08/18 08:00 Micronase PO DAILY@0800 ÁNGEL Hydrochlorothiazide 25 mg 11/08/18 09:00 Hydrochlorothiazide PO DAILY ON LICENSE OF [facility] Azithromycin 500 mg/ Sodium 250 mls @ 250 mls/hr 11/08/18 00:00 11/08/18 03: 34 Chloride IV Infused Q24H ON LICENSE OF [facility] Infusion Ceftriaxone Sodium 1 gm/ 50 mls @ 50 mls/hr 11/08/18 23:00 Sodium Chloride IV Q24H ÁNGEL Potassium Chloride/Sodium Chloride 1,000 mls @ 100 mls/hr 11/08/18 00:45 01:10 Normal Saline With 20 Meq Kcl IV 11/08/18 10:46 100 mls/hr ASDIRECTED ÁNGEL Administration Ibuprofen 400 mg 11/08/18 00:47 Motrin PO Q6H PRN Pain (mild 1-3) Insulin Human Lispro 0 unit 11/08/18 07:00 Humalog SUBCUT ACBED ON LICENSE OF [facility] Protocol Losartan Potassium 100 mg 11/08/18 09:00 Cozaar PO DAILY ON LICENSE OF [facility] Metoprolol Tartrate 100 mg 11/08/18 09:00 Lopressor PO BID ON LICENSE OF [facility] Morphine Sulfate 1 mg 11/08/18 00:47 Morphine IVPUSH Q2H PRN Pain (severe 7-10) Ondansetron HCl 4 mg 11/08/18 00:47 Zofran Odt PO Q4H PRN nausea, able to take PO Ondansetron HCl 4 mg 11/08/18 00:47 Zofran IVPUSH Q6H PRN Nausea/Vomiting Oxycodone HCl 5 mg 11/08/18 00:47 Oxycodone PO Q4H PRN Pain (moderate 4-6) Sodium Chloride 10 ml 11/08/18 00:47 Saline Flush FLUSH ASDIRECTED PRN Keep Vein Open Warfarin Sodium 1 dose 11/08/18 01:00 Pharmacy To Dose - Warfarin .XX ASDIRECTED ON LICENSE OF [facility] Zolpidem Tartrate 5 mg 11/08/18 00:47 Ambien PO BEDTIME PRN Sleep Discontinued Medications Generic Name Dose Route Start Last Admin Trade Name Freq PRN Reason Stop Dose Admin Acetaminophen 650 mg 11/07/18 21:37 11/07/18 21:55 Tylenol PO 11/07/18 21:38 650 mg NOW ONE Administration Ceftriaxone Sodium 1 gm/ 50 mls @ 50 mls/hr 11/07/18 23:10 11/07/18 23:27 Sodium Chloride IV 11/08/18 00:09 50 mls/hr ONETIME ONE Administration Ibuprofen 600 mg 11/07/18 23:06 11/07/18 23:28 Motrin PO 11/07/18 23:07 600 mg ONETIME ONE Administration Lorazepam 1 mg 11/07/18 21:41 11/07/18 21:55 Ativan IVPUSH 11/07/18 21:42 1 mg ONETIME ONE Administration Metoclopramide HCl 10 mg 11/07/18 21:52 11/07/18 22:00 Reglan IVPUSH 11/07/18 21:53 10 mg ONETIME ONE Administration Departure - Departure Time of Disposition: 23:45 Disposition: Admitted As Inpatient 67 Condition: Good Clinical Impression: Fever and chills, Morbid obesity, Chronic atrial fibrillation, Chronic anticoagulation Bilateral pneumonia Qualifiers: Pneumonia type: due to unspecified organism Lung location: lower lobe of lung Qualified Code(s): J18.1 - Lobar pneumonia, unspecified organism - Discharge Information - My Orders Last 24 Hours: My Active Orders 11/07/18 21:41 Blood Culture x2 Reflex Set [OM.PC] Stat 11/07/18 21:46 CULTURE BLOOD [BC] Stat 11/07/18 22:01 CULTURE BLOOD [BC] Stat - Assessment/Plan Last 24 Hours: My Active Orders 11/07/18 21:41 Blood Culture x2 Reflex Set [OM.PC] Stat 11/07/18 21:46 CULTURE BLOOD [BC] Stat 11/07/18 22:01 CULTURE BLOOD [BC] Stat
[2018-11-07 23:21] LABS: ANION GAP 18.3; CHLORIDE,CL 103 mmol/L (101-111)
[2018-11-07 23:23] LABS: SODIUM,NA 139 mmol/L (135-145)
[2018-11-08] MEDS ORDERED: Azithromycin 500 MG in Sodium Chloride 0.9% 250 ML IV SCH ×2
[2018-11-08] MEDS ORDERED: NS + KCl 20mEq/L 1,000 ML IV SCH (00:45)
--- NOTE | 2018-11-08 00:46 | PCM.HP ---
H&P History of Present Illness - General Date of Service: 11/08/18 Admit Problem/Dx: Fever Source of Information: Patient History Limitations: Reports: No Limitations - History of Present Illness Initial Comments - Free Text/Narative: 78-year-old lady with a history of atrial fibrillation, hypertension, diabetes, morbid obesity. Presented with relatively sudden onset of chills, rigors, fever. Denies associated cough, no sick contact, no urinary burning. No chest pain. No abdominal pain, no diarrhea. Noted to have high fever in the emergency room - Related Data Allergies/Adverse Reactions: Allergies Allergy/AdvReac Type Severity Reaction Status Date / Time amlodipine besylate Allergy Tachycardia Verified 03/15/18 10:52 [From Norvasc] amoxicillin trihydrate Allergy Diarrhea Verified 03/15/18 10:52 [From Amoxil] Iodine and Iodide Containing Allergy Redness Verified 03/15/18 10:52 Produc levofloxacin [From Levaquin] Allergy Hives Verified 03/15/18 10:52 nickel Allergy Rash Verified 03/15/18 10:52 pravastatin Allergy sore Verified 03/15/18 10:52 muscles simvastatin [From Zocor] Allergy Muscle Verified 03/15/18 10:52 Aches atorvastatin calcium AdvReac Nausea Verified 03/15/18 10:52 [From Lipitor] dronedarone AdvReac Nausea and Verified 03/15/18 10:52 Vomiting hydrocodone AdvReac Nausea and Verified 03/15/18 10:52 Vomiting tramadol AdvReac Nausea and Verified 03/15/18 10:52 Vomiting Home Medications: Home Meds Aspirin [Adult Low Dose Aspirin EC] 81 mg PO DAILY 10/11/14 [History] Diltiazem HCl [Diltiazem 24Hr ER] 300 mg PO DAILY 10/11/14 [History] Losartan/Hydrochlorothiazide [Losartan-HCTZ 100-25 MG] 1 tab PO DAILY 10/11/14 [ History] Warfarin Sodium [Jantoven] 5 mg PO ASDIRECTED 10/11/14 [History] Metoprolol Tartrate [Lopressor] 100 mg PO BID 11/19/14 [History] Cyanocobalamin (Vitamin B-12) [Cyanocobalamin Injection] 1,000 mcg IM Q30D 12/09 [History] Warfarin Sodium [Jantoven] 2.5 mg PO ASDIRECTED 12/09/16 [History] glyBURIDE [Glyburide] 5 mg PO DAILY #10 tablet 12/13/16 [Rx] Past Medical History HEENT History: Reports: Impaired Vision Cardiovascular History: Reports: Afib, CAD, High Cholesterol, Hypertension, Other (See Below) Other Cardiovascular History: Paroxysmal Atrial Fibrillation, Aortic Stenosis Respiratory History: Reports: Asthma, Sleep Apnea Genitourinary History: Reports: Other (See Below) Other Genitourinary History: mild stress incontinence when coughing 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 History: Reports: Other (See Below) Other OB/BYN History: Endometrial Hyperplasia; Dilatation & Curettage Musculoskeletal History: Reports: Arthritis Endocrine/Metabolic History: Reports: Diabetes, Type II Hematologic History: Reports: B12 Deficiency - Past Surgical History Cardiovascular Surgical History: Reports: Coronary Artery Stent, Valve Replacement, Other (See Below) GI Surgical History: Reports: Hernia, Abdominal Female Surgical History: Reports: Hysterectomy, Other (See Below) Social & Family History - Family History Family Medical History: Noncontributory Cardiac: Reports: Hypertension - Tobacco Use Smoking Status *Q: Former Smoker Used Tobacco, but Quit: Yes Month/Year Tobacco Last Used: 1974 - Caffeine Use Caffeine Use: Reports: Coffee - Recreational Drug Use Recreational Drug Use: No - Living Situation & Occupation Living situation: Reports: Occupation: Retired H&P Review of Systems - Review of Systems: Review Of Systems: See Below General: Reports: Fever, Chills Pulmonary: Denies: Shortness of Breath, Wheezing Cardiovascular: Reports: Edema (Chronic). Denies: Chest Pain Gastrointestinal: Denies: Abdominal Pain Genitourinary: Denies: Dysuria Psychiatric: Denies: Confusion Neurological: Denies: Dizziness, Headache Exam - Exam Exam: See Below - Vital Signs Vital Signs: Last Vital Signs Temp 38.9 C H 11/07/18 23:28 Pulse 101 H 11/07/18 21:49 Resp 24 H 11/07/18 21:49 BP 119/43 L 11/07/18 21:49 Pulse Ox 96 11/07/18 21:49 Weight: 120.202 kg - Exam Quality Assessment: Supplemental Oxygen General: Alert, Oriented Neck: Supple Lungs: Clear to Auscultation, Normal Respiratory Effort. No: Wheezing Cardiovascular: Regular Rate, Regular Rhythm GI/Abdominal Exam: Normal Bowel Sounds, Soft, Non-Tender, Other (Morbidly obese) Back Exam: Normal Inspection Extremities: Pedal Edema Skin: Warm, Dry Neuro Extensive - Mental Status: Alert, Oriented x3, Normal Mood/Affect Psychiatric: Alert, Normal Affect, Normal Mood - Patient Data Lab Results Last 24 hrs: Laboratory Results - last 24 hr 11/07/18 11/07/18 11/07/18 Range/Units 21:45 21:46 21:46 WBC 16.3 H (5.0-10.0) 10^3/uL RBC 4.89 (4.2-5.4) 10^6/uL Hgb 13.9 (12.0-16.0) g/dL Hct 42.2 (37.0-47.0) % MCV 86.3 (80-100) fL MCH 28.4 (27.0-34.0) pg MCHC 32.9 L (33.0-35.0) g/dL Plt Count 344 D (150-450) 10^3/uL Neut % (Auto) 80.7 H (42.2-75.2) % Lymph % (Auto) 12.3 L (20.5-50.1) % [place] % (Auto) 4.8 (2-8) % Eos % (Auto) 1.9 (1.0-3.0) % Baso % (Auto) 0.3 (0.0-1.0) % PT (9.0-12.0) SEC INR (0.9-1.2) D-Dimer, Quantitative (0-400) ng/mL Sodium 139 (135-145) mmol/L Potassium 4.3 (3.6-5.0) mmol/L Chloride 103 (101-111) mmol/L Carbon Dioxide 22.0 (21.0-31.0) mmol/L Anion Gap 18.3 BUN 24 H (7-18) mg/dL Creatinine 1.2 (0.6-1.3) mg/dL Est Cr Clr Drug Dosing TNP Estimated GFR (MDRD) 44 BUN/Creatinine Ratio 20.00 Glucose 162 H (74-105) mg/dL POC Glucose 164 H (83-110) mg/dl Lactic Acid (0.5-2.2) mmol/L Calcium 8.9 (8.4-10.2) mg/dl Total Bilirubin 0.7 (0.2-1.0) mg/dL AST 28 (10-42) IU/L ALT 17 (10-60) IU/L Alkaline Phosphatase 76 (42-121) IU/L CK-MB (CK-2) (0.4-4.7) ng/mL Troponin I (0.00-0.02) ng/ml B-Natriuretic Peptide (0-100) pg/ml Total Protein 7.1 (6.7-8.2) g/dl Albumin 3.4 (3.2-5.5) g/dl Globulin 3.7 Albumin/Globulin Ratio 0.92 Amylase (28-100) U/L Lipase (22-51) U/L Urine Color (YELLOW) Urine Appearance (CLEAR) Urine pH (5.0-9.0) Ur Specific [place] (1.005-1.030) Urine Protein (NEGATIVE) Urine Glucose (UA) (NEGATIVE) Urine Ketones (NEGATIVE) Urine Occult Blood (NEGATIVE) Urine Nitrite (NEGATIVE) Urine Bilirubin (NEGATIVE) Urine Urobilinogen (0.2-1.0) mg/dL Ur Leukocyte Esterase (NEGATIVE) 11/07/18 11/07/18 11/07/18 Range/Units 21:46 21:46 21:46 WBC (5.0-10.0) 10^3/uL RBC (4.2-5.4) 10^6/uL Hgb (12.0-16.0) g/dL Hct (37.0-47.0) % MCV (80-100) fL MCH (27.0-34.0) pg MCHC (33.0-35.0) g/dL Plt Count (150-450) 10^3/uL Neut % (Auto) (42.2-75.2) % Lymph % (Auto) (20.5-50.1) % [place] % (Auto) (2-8) % Eos % (Auto) (1.0-3.0) % Baso % (Auto) (0.0-1.0) % PT 24.7 H (9.0-12.0) SEC INR 2.5 H (0.9-1.2) D-Dimer, Quantitative 333 (0-400) ng/mL Sodium (135-145) mmol/L Potassium (3.6-5.0) mmol/L Chloride (101-111) mmol/L Carbon Dioxide (21.0-31.0) mmol/L Anion Gap BUN (7-18) mg/dL Creatinine (0.6-1.3) mg/dL Est Cr Clr Drug Dosing Estimated GFR (MDRD) BUN/Creatinine Ratio Glucose (74-105) mg/dL POC Glucose (83-110) mg/dl Lactic Acid 3.5 H (0.5-2.2) mmol/L Calcium (8.4-10.2) mg/dl Total Bilirubin (0.2-1.0) mg/dL AST (10-42) IU/L ALT (10-60) IU/L Alkaline Phosphatase (42-121) IU/L CK-MB (CK-2) 1.60 (0.4-4.7) ng/mL Troponin I (0.00-0.02) ng/ml B-Natriuretic Peptide (0-100) pg/ml Total Protein (6.7-8.2) g/dl Albumin (3.2-5.5) g/dl Globulin Albumin/Globulin Ratio Amylase (28-100) U/L Lipase (22-51) U/L Urine Color (YELLOW) Urine Appearance (CLEAR) Urine pH (5.0-9.0) Ur Specific [place] (1.005-1.030) Urine Protein (NEGATIVE) Urine Glucose (UA) (NEGATIVE) Urine Ketones (NEGATIVE) Urine Occult Blood (NEGATIVE) Urine Nitrite (NEGATIVE) Urine Bilirubin (NEGATIVE) Urine Urobilinogen (0.2-1.0) mg/dL Ur Leukocyte Esterase (NEGATIVE) 11/07/18 11/07/18 11/07/18 Range/Units 21:46 21:46 22:32 WBC (5.0-10.0) 10^3/uL RBC (4.2-5.4) 10^6/uL Hgb (12.0-16.0) g/dL Hct (37.0-47.0) % MCV (80-100) fL MCH (27.0-34.0) pg MCHC (33.0-35.0) g/dL Plt Count (150-450) 10^3/uL Neut % (Auto) (42.2-75.2) % Lymph % (Auto) (20.5-50.1) % [place] % (Auto) (2-8) % Eos % (Auto) (1.0-3.0) % Baso % (Auto) (0.0-1.0) % PT (9.0-12.0) SEC INR (0.9-1.2) D-Dimer, Quantitative (0-400) ng/mL Sodium (135-145) mmol/L Potassium (3.6-5.0) mmol/L Chloride (101-111) mmol/L Carbon Dioxide (21.0-31.0) mmol/L Anion Gap BUN (7-18) mg/dL Creatinine (0.6-1.3) mg/dL Est Cr Clr Drug Dosing Estimated GFR (MDRD) BUN/Creatinine Ratio Glucose (74-105) mg/dL POC Glucose (83-110) mg/dl Lactic Acid (0.5-2.2) mmol/L Calcium (8.4-10.2) mg/dl Total Bilirubin (0.2-1.0) mg/dL AST (10-42) IU/L ALT (10-60) IU/L Alkaline Phosphatase (42-121) IU/L CK-MB (CK-2) (0.4-4.7) ng/mL Troponin I < 0.02 (0.00-0.02) ng/ml B-Natriuretic Peptide 182 H (0-100) pg/ml Total Protein (6.7-8.2) g/dl Albumin (3.2-5.5) g/dl Globulin Albumin/Globulin Ratio Amylase 22 L (28-100) U/L Lipase 26 (22-51) U/L Urine Color Yellow (YELLOW) Urine Appearance Slightly cloudy (CLEAR) Urine pH 5.0 (5.0-9.0) Ur Specific [place] 1.025 (1.005-1.030) Urine Protein Negative (NEGATIVE) Urine Glucose (UA) Negative (NEGATIVE) Urine Ketones Negative (NEGATIVE) Urine Occult Blood Negative (NEGATIVE) Urine Nitrite Negative (NEGATIVE) Urine Bilirubin Negative (NEGATIVE) Urine Urobilinogen 0.2 (0.2-1.0) mg/dL Ur Leukocyte Esterase Negative (NEGATIVE) Result Diagrams: 11/08/18 07:24 11/08/18 07:24 Diaz Results Last 24 hrs: Microbiology 11/07/18 23:08 Influenza Type A Antigen Screen - Final Nasal, Unspecified NEGATIVE INFLUENZA A VIRUS AG Influenza Type B Antigen Screen - Final NEGATIVE INFLUENZA B VIRUS AG 11/07/18 22:01 Anaerobic Blood Culture - Final Blood - Venous - Lab Draw Imaging Impressions Last 24 hrs: Difficult to interpret chest x-ray given morbid obesity Official report describing by basilar opacities, possible infiltrate, effusion or combination EKG INTERPRETATION Rhythm: A-Fib - Problem List (1) Fever SNOMED Code(s): 142575903 ICD Code: R50.9 - FEVER, UNSPECIFIED Status: Acute Current Visit: Yes (2) Atrial fibrillation with controlled ventricular response SNOMED Code(s): 522873848 ICD Code: I48.91 - UNSPECIFIED ATRIAL FIBRILLATION Status: Acute Current Visit: No (3) Diabetes SNOMED Code(s): 54208711 ICD Code: E11.9 - TYPE 2 DIABETES MELLITUS WITHOUT COMPLICATIONS Status: Acute Current Visit: No Qualifiers: Diabetes mellitus type: type 2 Diabetes mellitus long-term insulin use: 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 Diabetes mellitus complication status: with unspecified complications Qualified Code(s): E11.8 - Type 2 diabetes mellitus with unspecified complications (4) Sepsis SNOMED Code(s): 53826370 ICD Code: A41.9 - SEPSIS, UNSPECIFIED ORGANISM Status: Acute Current Visit: No Qualifiers: Sepsis type: sepsis due to unspecified organism Qualified Code(s): A41.9 - Sepsis, unspecified organism Problem List Initiated/Reviewed/Updated: Yes Orders Last 24hrs: Active Orders 24 hr Category Date Time Status Blood Glucose Check, Bedside [RC] ONETIME Care 11/07/18 21:41 Active EKG Documentation Completion [RC] URGENT Care 11/07/18 21:41 Active Glucose [Blood Glucose Check, Bedside] [RC] QIDACANDBED Care 11/08/18 00:36 Ordered BASIC METABOLIC PANEL,BMP [CHEM] AM Lab 11/08/18 05:11 Ordered BASIC METABOLIC PANEL,BMP [CHEM] AM Lab 11/09/18 05:11 Ordered BASIC METABOLIC PANEL,BMP [CHEM] AM Lab 11/10/18 05:11 Ordered BASIC METABOLIC PANEL,BMP [CHEM] AM Lab 11/11/18 05:11 Ordered BASIC METABOLIC PANEL,BMP [CHEM] AM Lab 11/12/18 05:11 Ordered CBC WITH AUTO DIFF [HEME] AM Lab 11/08/18 05:11 Ordered CBC WITH AUTO DIFF [HEME] AM Lab 11/09/18 05:11 Ordered CBC WITH AUTO DIFF [HEME] AM Lab 11/10/18 05:11 Ordered CBC WITH AUTO DIFF [HEME] AM Lab 11/11/18 05:11 Ordered CBC WITH AUTO DIFF [HEME] AM Lab 11/12/18 05:11 Ordered CULTURE BLOOD [BC] Stat Lab 11/07/18 21:46 Received CULTURE BLOOD [BC] Stat Lab 11/07/18 22:01 Results CULTURE SPUTUM + SMEAR [RM] Routine Lab 11/08/18 00:30 Ordered INR,PT,PROTHROMBIN TIME [COAG] AM Lab 11/08/18 05:11 Ordered INR,PT,PROTHROMBIN TIME [COAG] AM Lab 11/09/18 05:11 Ordered INR,PT,PROTHROMBIN TIME [COAG] AM Lab 11/10/18 05:11 Ordered INR,PT,PROTHROMBIN TIME [COAG] AM Lab 11/11/18 05:11 Ordered INR,PT,PROTHROMBIN TIME [COAG] AM Lab 11/12/18 05:11 Ordered LACTIC ACID [CHEM] Routine Lab 11/08/18 05:00 Ordered Aspirin [Halfprin] Med 11/08/18 09:00 Ordered 81 mg PO DAILY Azithromycin [Zithromax] 500 mg Med 11/08/18 00:45 Ordered Sodium Chloride 0.9% [Normal Saline] 250 ml IV Q24H Diltiazem HCl [Diltiazem 24Hr ER] Med 11/08/18 09:00 Ordered 300 mg PO DAILY Insulin Lispro [HumaLOG] Med 11/08/18 07:00 Ordered See Protocol SUBCUT ACBED Losartan/Hydrochlorothiazide [Losartan-HCTZ 100-25 MG] Med 11/08/18 09:00 Ordered 1 tab PO DAILY Metoprolol Tartrate Med 11/08/18 09:00 Ordered 100 mg PO BID Sodium Chloride 0.9% with KCl 20 mEq @ 100 mL/Hr (1000 Med 11/08/18 00:45 Ordered mL) NS + KCl 20mEq/L [Normal Saline with 20 mEq KCl] 1,000 ml IV ASDIRECTED cefTRIAXone [Rocephin] 1 gm Med 11/08/18 23:00 Ordered Sodium Chloride 0.9% [Normal Saline] 50 ml IV Q24H glyBURIDE [Micronase] Med 11/08/18 09:00 Ordered 5 mg PO DAILY Blood Culture x2 Reflex Set [OM.PC] Stat Oth 11/07/18 21:41 Ordered Medication Orders Aspirin (Halfprin) 81 mg PO DAILY ÁNGEL Glyburide (Micronase) 5 mg PO DAILY [facility] Azithromycin 500 mg/ Sodium (Chloride) 250 mls @ 250 mls/hr IV Q24H ÁNGEL Ceftriaxone Sodium 1 gm/ (Sodium Chloride) 50 mls @ 50 mls/hr IV Q24H ÁNGEL Potassium Chloride/Sodium Chloride (Normal Saline With 20 Meq Kcl) 1,000 mls @ 100 mls/hr IV ASDIRECTED ÁNGEL Stop: 11/08/18 10:46 Insulin Human Lispro (Humalog) 0 unit SUBCUT ACBED ÁNGEL; Protocol Non-Formulary Medication (Diltiazem Hcl [Diltiazem 24hr Er]) 300 mg PO DAILY [facility] Non-Formulary Medication (Losartan/Hydrochlorothiazide [Losartan-Hctz 100-25 Mg] ) 1 tab PO DAILY [facility] Non-Formulary Medication (Metoprolol Tartrate) 100 mg PO BID [facility] Assessment/Plan Comment:: 78-year-old lady presented with chills, rigors. Noted to have fever, leukocytosis, elevated lactic acid Possible sepsis Etiology is unclear Chest x-ray difficult to interpret with morbid obesity, possible pneumonia Follow blood cultures Repeat lactic acid Treat with IV fluids Empirical antibiotic with azithromycin, Rocephin Hypertension Continue losartan and hydrochlorothiazide Continue metoprolol and Cardizem Diabetes Treat with glyburide Treat with Humalog with meals Atrial fibrillation Rate control with metoprolol and Cardizem Continue anticoagulation with Coumadin Target INR 2-3 DVT prophylaxis with warfarin
[2018-11-08] MEDS ORDERED: Ondansetron 4 MG/2 ML SDV IVPUSH PRN (00:47)
[2018-11-08] MEDS ORDERED: oxyCODONE 5 MG Tab PO PRN (00:47)
[2018-11-08] MEDS ORDERED: Ibuprofen 400 MG Tab PO PRN (00:47)
[2018-11-08] MEDS ORDERED: Morphine 2 MG/ML Syringe IVPUSH PRN (00:47)
[2018-11-08] MEDS ORDERED: Zolpidem 5 MG Tab PO PRN (00:47)
[2018-11-08] MEDS ORDERED: Acetaminophen 325 MG Tab PO PRN (00:47)
[2018-11-08] MEDS ORDERED: Ondansetron 4 MG Tab.DIS PO PRN (00:47)
[2018-11-08] MEDS: Insulin Lispro 100 Units/ML 3 ML Vial SUBCUT SCH ×4 (08:05→21:22)
[2018-11-08] MEDS: Diltiazem 120 MG Cap.CD PO SCH (09:49)
[2018-11-08] MEDS: glyBURIDE 5 MG Tab PO SCH (09:49)
[2018-11-08] MEDS: Losartan 50 MG Tab PO SCH (09:50)
[2018-11-08] MEDS: Aspirin 81 MG Tab.EC PO SCH (09:51)
[2018-11-08] MEDS: Hydrochlorothiazide 25 MG Tab PO SCH (09:51)
[2018-11-08] MEDS: Metoprolol Tartrate 50 MG Tab PO SCH ×2 (09:51→21:37)
[2018-11-08] MEDS: Diltiazem 180 MG Cap.CD PO SCH (09:51)
--- NOTE | 2018-11-08 12:43 | PCM.PN ---
- General Info Date of Service: 11/08/18 Admission Dx/Problem (Free Text): Fever Functional Status: Reports: Tolerating Diet - Review of Systems General: Reports: Fever, Weakness Pulmonary: Denies: Shortness of Breath Cardiovascular: Denies: Chest Pain Gastrointestinal: Denies: Abdominal Pain Skin: Reports: Other (erythema left leg) Psychiatric: Denies: Confusion - Patient Data Vitals - Most Recent: Last Vital Signs Temp 36.9 C 11/08/18 08:26 Pulse 103 H 11/08/18 09:51 Resp 20 11/08/18 08:26 BP 136/59 L 11/08/18 09:51 Pulse Ox 97 11/08/18 08:26 Weight - Most Recent: 120.202 kg I&O - Last 24 Hours: Intake & Output 11/07/18 11/08/18 11/08/18 22:59 06:59 14:59 Intake Total 658 Balance 658 Lab Results Last 24 Hours: Laboratory Results - last 24 hr 11/07/18 11/07/18 11/07/18 Range/Units 21:45 21:46 21:46 WBC 16.3 H (5.0-10.0) 10^3/uL RBC 4.89 (4.2-5.4) 10^6/uL Hgb 13.9 (12.0-16.0) g/dL Hct 42.2 (37.0-47.0) % MCV 86.3 (80-100) fL MCH 28.4 (27.0-34.0) pg MCHC 32.9 L (33.0-35.0) g/dL Plt Count 344 D (150-450) 10^3/uL Neut % (Auto) 80.7 H (42.2-75.2) % Lymph % (Auto) 12.3 L (20.5-50.1) % Cross % (Auto) 4.8 (2-8) % Eos % (Auto) 1.9 (1.0-3.0) % Baso % (Auto) 0.3 (0.0-1.0) % PT (9.0-12.0) SEC INR (0.9-1.2) D-Dimer, Quantitative (0-400) ng/mL Sodium 139 (135-145) mmol/L Potassium 4.3 (3.6-5.0) mmol/L Chloride 103 (101-111) mmol/L Carbon Dioxide 22.0 (21.0-31.0) mmol/L Anion Gap 18.3 BUN 24 H (7-18) mg/dL Creatinine 1.2 (0.6-1.3) mg/dL Est Cr Clr Drug Dosing TNP Estimated GFR (MDRD) 44 BUN/Creatinine Ratio 20.00 Glucose 162 H (74-105) mg/dL POC Glucose 164 H (83-110) mg/dl Lactic Acid (0.5-2.2) mmol/L Calcium 8.9 (8.4-10.2) mg/dl Total Bilirubin 0.7 (0.2-1.0) mg/dL AST 28 (10-42) IU/L ALT 17 (10-60) IU/L Alkaline Phosphatase 76 (42-121) IU/L CK-MB (CK-2) (0.4-4.7) ng/mL Troponin I (0.00-0.02) ng/ml B-Natriuretic Peptide (0-100) pg/ml Total Protein 7.1 (6.7-8.2) g/dl Albumin 3.4 (3.2-5.5) g/dl Globulin 3.7 Albumin/Globulin Ratio 0.92 Amylase (28-100) U/L Lipase (22-51) U/L Urine Color (YELLOW) Urine Appearance (CLEAR) Urine pH (5.0-9.0) Ur Specific [employer] [place] (1.005-1.030) Urine Protein (NEGATIVE) Urine Glucose (UA) (NEGATIVE) Urine Ketones (NEGATIVE) Urine Occult Blood (NEGATIVE) Urine Nitrite (NEGATIVE) Urine Bilirubin (NEGATIVE) Urine Urobilinogen (0.2-1.0) mg/dL Ur Leukocyte Esterase (NEGATIVE) 11/07/18 11/07/18 11/07/18 Range/Units 21:46 21:46 21:46 WBC (5.0-10.0) 10^3/uL RBC (4.2-5.4) 10^6/uL Hgb (12.0-16.0) g/dL Hct (37.0-47.0) % MCV (80-100) fL MCH (27.0-34.0) pg MCHC (33.0-35.0) g/dL Plt Count (150-450) 10^3/uL Neut % (Auto) (42.2-75.2) % Lymph % (Auto) (20.5-50.1) % Cross % (Auto) (2-8) % Eos % (Auto) (1.0-3.0) % Baso % (Auto) (0.0-1.0) % PT 24.7 H (9.0-12.0) SEC INR 2.5 H (0.9-1.2) D-Dimer, Quantitative 333 (0-400) ng/mL Sodium (135-145) mmol/L Potassium (3.6-5.0) mmol/L Chloride (101-111) mmol/L Carbon Dioxide (21.0-31.0) mmol/L Anion Gap BUN (7-18) mg/dL Creatinine (0.6-1.3) mg/dL Est Cr Clr Drug Dosing Estimated GFR (MDRD) BUN/Creatinine Ratio Glucose (74-105) mg/dL POC Glucose (83-110) mg/dl Lactic Acid 3.5 H (0.5-2.2) mmol/L Calcium (8.4-10.2) mg/dl Total Bilirubin (0.2-1.0) mg/dL AST (10-42) IU/L ALT (10-60) IU/L Alkaline Phosphatase (42-121) IU/L CK-MB (CK-2) 1.60 (0.4-4.7) ng/mL Troponin I (0.00-0.02) ng/ml B-Natriuretic Peptide (0-100) pg/ml Total Protein (6.7-8.2) g/dl Albumin (3.2-5.5) g/dl Globulin Albumin/Globulin Ratio Amylase (28-100) U/L Lipase (22-51) U/L Urine Color (YELLOW) Urine Appearance (CLEAR) Urine pH (5.0-9.0) Ur Specific [employer] [place] (1.005-1.030) Urine Protein (NEGATIVE) Urine Glucose (UA) (NEGATIVE) Urine Ketones (NEGATIVE) Urine Occult Blood (NEGATIVE) Urine Nitrite (NEGATIVE) Urine Bilirubin (NEGATIVE) Urine Urobilinogen (0.2-1.0) mg/dL Ur Leukocyte Esterase (NEGATIVE) 11/07/18 11/07/18 11/07/18 Range/Units 21:46 21:46 22:32 WBC (5.0-10.0) 10^3/uL RBC (4.2-5.4) 10^6/uL Hgb (12.0-16.0) g/dL Hct (37.0-47.0) % MCV (80-100) fL MCH (27.0-34.0) pg MCHC (33.0-35.0) g/dL Plt Count (150-450) 10^3/uL Neut % (Auto) (42.2-75.2) % Lymph % (Auto) (20.5-50.1) % Cross % (Auto) (2-8) % Eos % (Auto) (1.0-3.0) % Baso % (Auto) (0.0-1.0) % PT (9.0-12.0) SEC INR (0.9-1.2) D-Dimer, Quantitative (0-400) ng/mL Sodium (135-145) mmol/L Potassium (3.6-5.0) mmol/L Chloride (101-111) mmol/L Carbon Dioxide (21.0-31.0) mmol/L Anion Gap BUN (7-18) mg/dL Creatinine (0.6-1.3) mg/dL Est Cr Clr Drug Dosing Estimated GFR (MDRD) BUN/Creatinine Ratio Glucose (74-105) mg/dL POC Glucose (83-110) mg/dl Lactic Acid (0.5-2.2) mmol/L Calcium (8.4-10.2) mg/dl Total Bilirubin (0.2-1.0) mg/dL AST (10-42) IU/L ALT (10-60) IU/L Alkaline Phosphatase (42-121) IU/L CK-MB (CK-2) (0.4-4.7) ng/mL Troponin I < 0.02 (0.00-0.02) ng/ml B-Natriuretic Peptide 182 H (0-100) pg/ml Total Protein (6.7-8.2) g/dl Albumin (3.2-5.5) g/dl Globulin Albumin/Globulin Ratio Amylase 22 L (28-100) U/L Lipase 26 (22-51) U/L Urine Color Yellow (YELLOW) Urine Appearance Slightly cloudy (CLEAR) Urine pH 5.0 (5.0-9.0) Ur Specific [place] 1.025 (1.005-1.030) Urine Protein Negative (NEGATIVE) Urine Glucose (UA) Negative (NEGATIVE) Urine Ketones Negative (NEGATIVE) Urine Occult Blood Negative (NEGATIVE) Urine Nitrite Negative (NEGATIVE) Urine Bilirubin Negative (NEGATIVE) Urine Urobilinogen 0.2 (0.2-1.0) mg/dL Ur Leukocyte Esterase Negative (NEGATIVE) 11/08/18 11/08/18 11/08/18 Range/Units 07:24 07:24 07:24 WBC 21.3 H (5.0-10.0) 10^3/uL RBC 4.20 (4.2-5.4) 10^6/uL Hgb 11.8 L D (12.0-16.0) g/dL Hct 36.2 L (37.0-47.0) % MCV 86.2 (80-100) fL MCH 28.1 (27.0-34.0) pg MCHC 32.6 L (33.0-35.0) g/dL Plt Count 260 D (150-450) 10^3/uL Neut % (Auto) 91.6 H (42.2-75.2) % Lymph % (Auto) 4.2 L (20.5-50.1) % Cross % (Auto) 3.9 (2-8) % Eos % (Auto) 0.2 L (1.0-3.0) % Baso % (Auto) 0.1 (0.0-1.0) % PT 28.2 H (9.0-12.0) SEC INR 2.9 H (0.9-1.2) D-Dimer, Quantitative (0-400) ng/mL Sodium 135 (135-145) mmol/L Potassium 4.0 (3.6-5.0) mmol/L Chloride 102 (101-111) mmol/L Carbon Dioxide 23.0 (21.0-31.0) mmol/L Anion Gap 14.0 BUN 29 H (7-18) mg/dL Creatinine 1.3 (0.6-1.3) mg/dL Est Cr Clr Drug Dosing 28.00 Estimated GFR (MDRD) 40 BUN/Creatinine Ratio Glucose 132 H (74-105) mg/dL POC Glucose (83-110) mg/dl Lactic Acid (0.5-2.2) mmol/L Calcium 8.1 L (8.4-10.2) mg/dl Total Bilirubin (0.2-1.0) mg/dL AST (10-42) IU/L ALT (10-60) IU/L Alkaline Phosphatase (42-121) IU/L CK-MB (CK-2) (0.4-4.7) ng/mL Troponin I (0.00-0.02) ng/ml B-Natriuretic Peptide (0-100) pg/ml Total Protein (6.7-8.2) g/dl Albumin (3.2-5.5) g/dl Globulin Albumin/Globulin Ratio Amylase (28-100) U/L Lipase (22-51) U/L Urine Color (YELLOW) Urine Appearance (CLEAR) Urine pH (5.0-9.0) Ur Specific [employer] [place] (1.005-1.030) Urine Protein (NEGATIVE) Urine Glucose (UA) (NEGATIVE) Urine Ketones (NEGATIVE) Urine Occult Blood (NEGATIVE) Urine Nitrite (NEGATIVE) Urine Bilirubin (NEGATIVE) Urine Urobilinogen (0.2-1.0) mg/dL Ur Leukocyte Esterase (NEGATIVE) 11/08/18 11/08/18 11/08/18 Range/Units 07:24 07:48 10:58 WBC (5.0-10.0) 10^3/uL RBC (4.2-5.4) 10^6/uL Hgb (12.0-16.0) g/dL Hct (37.0-47.0) % MCV (80-100) fL MCH (27.0-34.0) pg MCHC (33.0-35.0) g/dL Plt Count (150-450) 10^3/uL Neut % (Auto) (42.2-75.2) % Lymph % (Auto) (20.5-50.1) % Cross % (Auto) (2-8) % Eos % (Auto) (1.0-3.0) % Baso % (Auto) (0.0-1.0) % PT (9.0-12.0) SEC INR (0.9-1.2) D-Dimer, Quantitative (0-400) ng/mL Sodium (135-145) mmol/L Potassium (3.6-5.0) mmol/L Chloride (101-111) mmol/L Carbon Dioxide (21.0-31.0) mmol/L Anion Gap BUN (7-18) mg/dL Creatinine (0.6-1.3) mg/dL Est Cr Clr Drug Dosing Estimated GFR (MDRD) BUN/Creatinine Ratio Glucose (74-105) mg/dL POC Glucose 126 H 119 H (83-110) mg/dl Lactic Acid 1.1 (0.5-2.2) mmol/L Calcium (8.4-10.2) mg/dl Total Bilirubin (0.2-1.0) mg/dL AST (10-42) IU/L ALT (10-60) IU/L Alkaline Phosphatase (42-121) IU/L CK-MB (CK-2) (0.4-4.7) ng/mL Troponin I (0.00-0.02) ng/ml B-Natriuretic Peptide (0-100) pg/ml Total Protein (6.7-8.2) g/dl Albumin (3.2-5.5) g/dl Globulin Albumin/Globulin Ratio Amylase (28-100) U/L Lipase (22-51) U/L Urine Color (YELLOW) Urine Appearance (CLEAR) Urine pH (5.0-9.0) Ur Specific [place] (1.005-1.030) Urine Protein (NEGATIVE) Urine Glucose (UA) (NEGATIVE) Urine Ketones (NEGATIVE) Urine Occult Blood (NEGATIVE) Urine Nitrite (NEGATIVE) Urine Bilirubin (NEGATIVE) Urine Urobilinogen (0.2-1.0) mg/dL Ur Leukocyte Esterase (NEGATIVE) Diaz Results Last 24 Hours: Microbiology 11/07/18 23:08 Influenza Type A Antigen Screen - Final Nasal, Unspecified NEGATIVE INFLUENZA A VIRUS AG Influenza Type B Antigen Screen - Final NEGATIVE INFLUENZA B VIRUS AG 11/07/18 22:01 Anaerobic Blood Culture - Final Blood - Venous - Lab Draw Med Orders - Current: Current Medications Acetaminophen (Tylenol) 650 mg PO Q4H PRN PRN Reason: Pain (Mild 1-3)/fever Aspirin (Halfprin) 81 mg PO DAILY [facility] Last Admin: 11/08/18 09:51 Dose: 81 mg Diltiazem HCl (Cardizem Cd) 180 mg PO DAILY [facility] Last Admin: 11/08/18 09:51 Dose: 180 mg Diltiazem HCl (Cardizem Cd) 120 mg PO DAILY [facility] Last Admin: 11/08/18 09:49 Dose: 120 mg Glyburide (Micronase) 5 mg PO DAILY@0800 [facility] Last Admin: 11/08/18 09:49 Dose: 5 mg Hydrochlorothiazide (Hydrochlorothiazide) 25 mg PO DAILY [facility] Last Admin: 11/08/18 09:51 Dose: 25 mg Azithromycin 500 mg/ Sodium (Chloride) 250 mls @ 250 mls/hr IV Q24H [facility] Last Infusion: 11/08/18 03:34 Dose: Infused Ceftriaxone Sodium 1 gm/ (Sodium Chloride) 50 mls @ 50 mls/hr IV Q24H [facility] Ibuprofen (Motrin) 400 mg PO Q6H PRN PRN Reason: Pain (mild 1-3) Insulin Human Lispro (Humalog) 0 unit SUBCUT ACBED [facility]; Protocol Last Admin: 11/08/18 11:25 Dose: Not Given Losartan Potassium (Cozaar) 100 mg PO DAILY [facility] Last Admin: 11/08/18 09:50 Dose: 100 mg Metoprolol Tartrate (Lopressor) 100 mg PO BID [facility] Last Admin: 11/08/18 09:51 Dose: 100 mg Morphine Sulfate (Morphine) 1 mg IVPUSH Q2H PRN PRN Reason: Pain (severe 7-10) Ondansetron HCl (Zofran Odt) 4 mg PO Q4H PRN PRN Reason: nausea, able to take PO Ondansetron HCl (Zofran) 4 mg IVPUSH Q6H PRN PRN Reason: Nausea/Vomiting Oxycodone HCl (Oxycodone) 5 mg PO Q4H PRN PRN Reason: Pain (moderate 4-6) Sodium Chloride (Saline Flush) 10 ml FLUSH ASDIRECTED PRN PRN Reason: Keep Vein Open Warfarin Sodium (Pharmacy To Dose - Warfarin) 1 dose .XX ASDIRECTED [facility] Zolpidem Tartrate (Ambien) 5 mg PO BEDTIME PRN PRN Reason: Sleep Discontinued Medications Acetaminophen (Tylenol) 650 mg PO NOW ONE Stop: 11/07/18 21:38 Last Admin: 11/07/18 21:55 Dose: 650 mg Ceftriaxone Sodium 1 gm/ (Sodium Chloride) 50 mls @ 50 mls/hr IV ONETIME ONE Stop: 11/08/18 00:09 Last Admin: 11/07/18 23:27 Dose: 50 mls/hr Potassium Chloride/Sodium Chloride (Normal Saline With 20 Meq Kcl) 1,000 mls @ 100 mls/hr IV ASDIRECTED ÁNGEL Stop: 11/08/18 10:46 Last Admin: 11/08/18 01:10 Dose: 100 mls/hr Ibuprofen (Motrin) 600 mg PO ONETIME ONE Stop: 11/07/18 23:07 Last Admin: 11/07/18 23:28 Dose: 600 mg Lorazepam (Ativan) 1 mg IVPUSH ONETIME ONE Stop: 11/07/18 21:42 Last Admin: 11/07/18 21:55 Dose: 1 mg Metoclopramide HCl (Reglan) 10 mg IVPUSH ONETIME ONE Stop: 11/07/18 21:53 Last Admin: 11/07/18 22:00 Dose: 10 mg - Exam General: Alert, Oriented Neck: Supple Lungs: Clear to Auscultation, Normal Respiratory Effort Cardiovascular: Regular Rate, Regular Rhythm GI/Abdominal Exam: Normal Bowel Sounds, Soft, Non-Tender Extremities: Redness (left lower leg) - Problem List & Annotations (1) Fever SNOMED Code(s): 418238941 Code(s): R50.9 - FEVER, UNSPECIFIED Status: Acute Current Visit: Yes (2) Atrial fibrillation with controlled ventricular response SNOMED Code(s): 790393014 Code(s): I48.91 - UNSPECIFIED ATRIAL FIBRILLATION Status: Acute Current Visit: No (3) Diabetes SNOMED Code(s): 25472966 Code(s): E11.9 - TYPE 2 DIABETES MELLITUS WITHOUT COMPLICATIONS Status: Acute Current Visit: No Qualifiers: Diabetes mellitus type: type 2 Diabetes mellitus terminal superintendent insulin use: without terminal superintendent use Diabetes mellitus complication status: with unspecified complications Qualified Code(s): E11.8 - Type 2 diabetes mellitus with unspecified complications (4) Sepsis SNOMED Code(s): 42300539 Code(s): A41.9 - SEPSIS, UNSPECIFIED ORGANISM Status: Acute Current Visit : No Qualifiers: Sepsis type: sepsis due to unspecified organism Qualified Code(s): A41.9 - Sepsis, unspecified organism (5) Cellulitis SNOMED Code(s): 569026311 Code(s): L03.90 - CELLULITIS, UNSPECIFIED Status: Acute Current Visit: Yes - Problem List Review Problem List Initiated/Reviewed/Updated: Yes - My Orders Last 24 Hours: My Active Orders 11/08/18 00:00 Azithromycin [Zithromax] 500 mg Sodium Chloride 0.9% [Normal Saline] 250 ml IV Q24H 11/08/18 00:30 CULTURE SPUTUM + SMEAR [RM] Routine 11/08/18 00:36 Glucose [Blood Glucose Check, Bedside] [RC] QIDACANDBED 11/08/18 00:47 Patient Status [ADT] Routine Oxygen Therapy [RC] PRN Up With Assistance [RC] ASDIRECTED VTE/DVT Education [RC] PER UNIT ROUTINE Vital Signs [RC] 04,08,12,16,20,00 Acetaminophen [Tylenol] 650 mg PO Q4H PRN Ibuprofen [Motrin] 400 mg PO Q6H PRN Morphine 1 mg IVPUSH Q2H PRN Ondansetron [Zofran ODT] 4 mg PO Q4H PRN Ondansetron [Zofran] 4 mg IVPUSH Q6H PRN Sodium Chloride 0.9% [Saline Flush] 10 ml FLUSH ASDIRECTED PRN Zolpidem [Ambien] 5 mg PO BEDTIME PRN oxyCODONE 5 mg PO Q4H PRN Peripheral IV Insertion Adult [OM.PC] Routine Resuscitation Status Routine 11/08/18 00:48 Antiembolic Hose [OM.PC] Per Unit Routine 11/08/18 00:49 Antiembolic Devices [RC] PER UNIT ROUTINE Peripheral IV Care [RC] 11/08/18 01:00 Pharmacy to Dose - Warfarin 1 dose .XX ASDIRECTED 11/08/18 07:00 Insulin Lispro [HumaLOG] See Protocol SUBCUT ACBED 11/08/18 08:00 glyBURIDE [Micronase] 5 mg PO DAILY@0800 11/08/18 09:00 Aspirin [Halfprin] 81 mg PO DAILY Diltiazem [Cardizem CD] 120 mg PO DAILY Diltiazem [Cardizem CD] 180 mg PO DAILY Losartan [Cozaar] 100 mg PO DAILY Metoprolol Tartrate [Lopressor] 100 mg PO BID hydroCHLOROthiazide 25 mg PO DAILY 11/08/18 23:00 cefTRIAXone [Rocephin] 1 gm Sodium Chloride 0.9% [Normal Saline] 50 ml IV Q24H 11/08/18 Breakfast Consistent Carbohydrate Diet [DIET] 11/09/18 05:11 BASIC METABOLIC PANEL,BMP [CHEM] AM CBC WITH AUTO DIFF [HEME] AM INR,PT,PROTHROMBIN TIME [COAG] AM 11/10/18 05:11 BASIC METABOLIC PANEL,BMP [CHEM] AM CBC WITH AUTO DIFF [HEME] AM INR,PT,PROTHROMBIN TIME [COAG] AM 11/11/18 05:11 BASIC METABOLIC PANEL,BMP [CHEM] AM CBC WITH AUTO DIFF [HEME] AM INR,PT,PROTHROMBIN TIME [COAG] AM 11/12/18 05:11 BASIC METABOLIC PANEL,BMP [CHEM] AM CBC WITH AUTO DIFF [HEME] AM INR,PT,PROTHROMBIN TIME [COAG] AM - Plan Plan:: 78-year-old lady presented with chills, rigors. Noted to have fever, leukocytosis, elevated lactic acid sepsis due to left leg cellulitis lactic acid back to normal resolved left leg cellulitis Chest x-ray difficult to interpret with morbid obesity, less likely pneumonia Follow blood cultures stop IV fluids Empirical antibiotic with Rocephin stop azithromycin Hypertension Continue losartan and hydrochlorothiazide Continue metoprolol and Cardizem Diabetes Treat with glyburide Treat with Humalog with meals Atrial fibrillation Rate control with metoprolol and Cardizem Continue anticoagulation with Coumadin Target INR 2-3 DVT prophylaxis with warfarin
[2018-11-08] MEDS ORDERED: ALPRAZolam 0.25 MG Tab PO PRN (12:59)
[2018-11-08] MEDS ORDERED: [UNRECOGNIZED DRUG - REMARK] PO ONE (14:30)
[2018-11-08] MEDS ORDERED: Metoprolol Succinate 50 MG Tab.ER PO ONE (21:38)
[2018-11-08] MEDS ORDERED: Metoprolol Tartrate 50 MG Tab PO ONE (21:40)
[2018-11-08] MEDS: Sodium Chloride 0.9% 10 ML Syringe FLUSH PRN ×2 (22:31→23:11)
[2018-11-08] MEDS: cefTRIAXone 1 GM in Sodium Chloride 0.9% 50 ML IV SCH (23:11)
[2018-11-09] MEDS: Sodium Chloride 0.9% 10 ML Syringe FLUSH PRN (00:08)
[2018-11-09 07:05] LABS: ANION GAP 13.5
[2018-11-09] MEDS: Losartan 50 MG Tab PO SCH (09:02)
[2018-11-09] MEDS: Hydrochlorothiazide 25 MG Tab PO SCH (09:02)
[2018-11-09] MEDS: glyBURIDE 5 MG Tab PO SCH (09:03)
[2018-11-09] MEDS: Aspirin 81 MG Tab.EC PO SCH (09:03)
[2018-11-09] MEDS: Diltiazem 120 MG Cap.CD PO SCH (09:03)
[2018-11-09] MEDS: Metoprolol Tartrate 50 MG Tab PO SCH ×2 (09:03→22:12)
[2018-11-09] MEDS: Diltiazem 180 MG Cap.CD PO SCH (09:04)
[2018-11-09] MEDS: Insulin Lispro 100 Units/ML 3 ML Vial SUBCUT SCH ×4 (09:07→22:13)
[2018-11-09] MEDS ORDERED: Nystatin Crm 15 GM Tube TOP PRN (11:07)
--- NOTE | 2018-11-09 11:49 | PCM.PN ---
- General Info Date of Service: 11/09/18 Admission Dx/Problem (Free Text): Fever Subjective Update: feeling well no cough left leg redness has improved associated with edema b/l no sob, no cp Functional Status: Reports: Pain Controlled, Tolerating Diet - Review of Systems General: Reports: Weakness (improving). Denies: Fever Pulmonary: Denies: Shortness of Breath Cardiovascular: Denies: Chest Pain Gastrointestinal: Denies: Abdominal Pain Genitourinary: Denies: Dysuria Psychiatric: Denies: Confusion - Patient Data Vitals - Most Recent: Last Vital Signs Temp 37.0 C 11/09/18 08:00 Pulse 91 11/09/18 09:03 Resp 20 11/09/18 08:00 BP 142/63 H 11/09/18 09:03 Pulse Ox 93 L 11/09/18 08:00 Weight - Most Recent: 120.202 kg I&O - Last 24 Hours: Intake & Output 11/08/18 11/09/18 11/09/18 22:59 06:59 14:59 Intake Total 50 790 Output Total 400 500 400 Balance -350 290 -400 Lab Results Last 24 Hours: Laboratory Results - last 24 hr 11/08/18 11/08/18 11/08/18 Range/Units 17:08 20:53 21:56 WBC (5.0-10.0) 10^3/uL RBC (4.2-5.4) 10^6/uL Hgb (12.0-16.0) g/dL Hct (37.0-47.0) % MCV (80-100) fL MCH (27.0-34.0) pg MCHC (33.0-35.0) g/dL Plt Count (150-450) 10^3/uL Neut % (Auto) (42.2-75.2) % Lymph % (Auto) (20.5-50.1) % [place] % (Auto) (2-8) % Eos % (Auto) (1.0-3.0) % Baso % (Auto) (0.0-1.0) % PT (9.0-12.0) SEC INR (0.9-1.2) Sodium (135-145) mmol/L Potassium (3.6-5.0) mmol/L Chloride (101-111) mmol/L Carbon Dioxide (21.0-31.0) mmol/L Anion Gap BUN (7-18) mg/dL Creatinine (0.6-1.3) mg/dL Est Cr Clr Drug Dosing mL/min Estimated GFR (MDRD) Glucose (74-105) mg/dL POC Glucose 80 L 58 L 133 H (83-110) mg/dl Calcium (8.4-10.2) mg/dl 11/09/18 11/09/18 11/09/18 Range/Units 06:25 06:25 06:25 WBC 10.3 H (5.0-10.0) 10^3/uL RBC 4.01 L (4.2-5.4) 10^6/uL Hgb 11.2 L (12.0-16.0) g/dL Hct 34.6 L (37.0-47.0) % MCV 86.3 (80-100) fL MCH 27.9 (27.0-34.0) pg MCHC 32.4 L (33.0-35.0) g/dL Plt Count 232 (150-450) 10^3/uL Neut % (Auto) 81.5 H (42.2-75.2) % Lymph % (Auto) 12.0 L (20.5-50.1) % [place] % (Auto) 5.2 (2-8) % Eos % (Auto) 1.2 (1.0-3.0) % Baso % (Auto) 0.1 (0.0-1.0) % PT 22.0 H (9.0-12.0) SEC INR 2.3 H (0.9-1.2) Sodium 135 (135-145) mmol/L Potassium 3.5 L (3.6-5.0) mmol/L Chloride 101 (101-111) mmol/L Carbon Dioxide 24.0 (21.0-31.0) mmol/L Anion Gap 13.5 BUN 24 H (7-18) mg/dL Creatinine 1.1 (0.6-1.3) mg/dL Est Cr Clr Drug Dosing 33.10 mL/min Estimated GFR (MDRD) 48 Glucose 61 L (74-105) mg/dL POC Glucose (83-110) mg/dl Calcium 8.1 L (8.4-10.2) mg/dl 02/20/19 02/20/19 Range/Units 07:33 11:27 WBC (5.0-10.0) 10^3/uL RBC (4.2-5.4) 10^6/uL Hgb (12.0-16.0) g/dL Hct (37.0-47.0) % MCV (80-100) fL MCH (27.0-34.0) pg MCHC (33.0-35.0) g/dL Plt Count (150-450) 10^3/uL Neut % (Auto) (42.2-75.2) % Lymph % (Auto) (20.5-50.1) % [place] % (Auto) (2-8) % Eos % (Auto) (1.0-3.0) % Baso % (Auto) (0.0-1.0) % PT (9.0-12.0) SEC INR (0.9-1.2) Sodium (135-145) mmol/L Potassium (3.6-5.0) mmol/L Chloride (101-111) mmol/L Carbon Dioxide (21.0-31.0) mmol/L Anion Gap BUN (7-18) mg/dL Creatinine (0.6-1.3) mg/dL Est Cr Clr Drug Dosing mL/min Estimated GFR (MDRD) Glucose (74-105) mg/dL POC Glucose 69 L 94 (83-110) mg/dl Calcium (8.4-10.2) mg/dl Diaz Results Last 24 Hours: Microbiology 11/07/18 22:01 Aerobic Blood Culture - Preliminary Blood - Venous - Lab Draw NO GROWTH AFTER 1 DAY Anaerobic Blood Culture - Final 11/07/18 21:46 Aerobic Blood Culture - Preliminary Blood - Venous NO GROWTH AFTER 1 DAY Anaerobic Blood Culture - Preliminary NO GROWTH AFTER 1 DAY Med Orders - Current: Current Medications Acetaminophen (Tylenol) 650 mg PO Q4H PRN PRN Reason: Pain (Mild 1-3)/fever Alprazolam (Xanax) 0.25 mg PO Q6H PRN PRN Reason: Anxiety Last Admin: 11/08/18 13:12 Dose: 0.25 mg Aspirin (Halfprin) 81 mg PO DAILY ÁNGEL Last Admin: 11/09/18 09:03 Dose: 81 mg Diltiazem HCl (Cardizem Cd) 180 mg PO DAILY [facility] Last Admin: 11/09/18 09:04 Dose: 180 mg Diltiazem HCl (Cardizem Cd) 120 mg PO DAILY [facility] Last Admin: 11/09/18 09:03 Dose: 120 mg Glyburide (Micronase) 5 mg PO DAILY@0800 [facility] Last Admin: 11/09/18 09:03 Dose: 5 mg Hydrochlorothiazide (Hydrochlorothiazide) 25 mg PO DAILY [facility] Last Admin: 11/09/18 09:02 Dose: 25 mg Ceftriaxone Sodium 1 gm/ (Sodium Chloride) 50 mls @ 50 mls/hr IV Q24H [facility] Last Admin: 11/08/18 23:11 Dose: 50 mls/hr Ibuprofen (Motrin) 400 mg PO Q6H PRN PRN Reason: Pain (mild 1-3) Insulin Human Lispro (Humalog) 0 unit SUBCUT ACBED [facility]; Protocol Last Admin: 11/09/18 11:28 Dose: Not Given Losartan Potassium (Cozaar) 100 mg PO DAILY [facility] Last Admin: 11/09/18 09:02 Dose: 100 mg Metoprolol Tartrate (Lopressor) 100 mg PO BID [facility] Last Admin: 11/09/18 09:03 Dose: 100 mg Morphine Sulfate (Morphine) 1 mg IVPUSH Q2H PRN PRN Reason: Pain (severe 7-10) Nystatin (Nystatin Crm) 1 gm TOP QID PRN PRN Reason: moist areas Ondansetron HCl (Zofran Odt) 4 mg PO Q4H PRN PRN Reason: nausea, able to take PO Ondansetron HCl (Zofran) 4 mg IVPUSH Q6H PRN PRN Reason: Nausea/Vomiting Oxycodone HCl (Oxycodone) 5 mg PO Q4H PRN PRN Reason: Pain (moderate 4-6) Potassium Chloride (Klor-Con 10) 20 meq PO ONETIME ONE Stop: 11/09/18 11:45 Sodium Chloride (Saline Flush) 10 ml FLUSH ASDIRECTED PRN PRN Reason: Keep Vein Open Last Admin: 11/09/18 00:08 Dose: 10 ml Warfarin Sodium (Pharmacy To Dose - Warfarin) 1 dose .XX ASDIRECTED [facility] Warfarin Sodium (Coumadin) 2.5 mg PO ONETIME ONE Stop: 11/09/18 14:01 Zolpidem Tartrate (Ambien) 5 mg PO BEDTIME PRN PRN Reason: Sleep Discontinued Medications Acetaminophen (Tylenol) 650 mg PO NOW ONE Stop: 11/07/18 21:38 Last Admin: 11/07/18 21:55 Dose: 650 mg Ceftriaxone Sodium 1 gm/ (Sodium Chloride) 50 mls @ 50 mls/hr IV ONETIME ONE Stop: 11/08/18 00:09 Last Admin: 11/07/18 23:27 Dose: 50 mls/hr Azithromycin 500 mg/ Sodium (Chloride) 250 mls @ 250 mls/hr IV Q24H [facility] Last Infusion: 11/08/18 03:34 Dose: Infused Potassium Chloride/Sodium Chloride (Normal Saline With 20 Meq Kcl) 1,000 mls @ 100 mls/hr IV ASDIRECTED [facility] Stop: 11/08/18 10:46 Last Infusion: 11/08/18 16:10 Dose: Infused Ibuprofen (Motrin) 600 mg PO ONETIME ONE Stop: 11/07/18 23:07 Last Admin: 11/07/18 23:28 Dose: 600 mg Lorazepam (Ativan) 1 mg IVPUSH ONETIME ONE Stop: 11/07/18 21:42 Last Admin: 11/07/18 21:55 Dose: 1 mg Metoclopramide HCl (Reglan) 10 mg IVPUSH ONETIME ONE Stop: 11/07/18 21:53 Last Admin: 11/07/18 22:00 Dose: 10 mg Metoprolol Tartrate (Lopressor) 50 mg PO ONETIME ONE Stop: 11/08/18 21:41 Last Admin: 11/08/18 22:29 Dose: 50 mg Warfarin Sodium (Coumadin) 0 mg PO ONETIME ONE Stop: 11/08/18 14:31 Last Admin: 11/08/18 16:27 Dose: Not Given - Exam General: Alert, Oriented Neck: Supple Lungs: Clear to Auscultation, Normal Respiratory Effort Cardiovascular: Regular Rate, Regular Rhythm GI/Abdominal Exam: Normal Bowel Sounds, Soft, Non-Tender Extremities: Pedal Edema Skin: Warm, Other (left lower leg redness) Neurological: No New Focal Deficit Psy/Mental Status: Alert, Normal Affect, Normal Mood - Problem List & Annotations (1) Fever SNOMED Code(s): 115493023 Code(s): R50.9 - FEVER, UNSPECIFIED Status: Acute Current Visit: Yes (2) Atrial fibrillation with controlled ventricular response SNOMED Code(s): 536197957 Code(s): I48.91 - UNSPECIFIED ATRIAL FIBRILLATION Status: Acute Current Visit: No (3) Diabetes SNOMED Code(s): 58960278 Code(s): E11.9 - TYPE 2 DIABETES MELLITUS WITHOUT COMPLICATIONS Status: Acute Current Visit: No Qualifiers: Diabetes mellitus type: type 2 Diabetes mellitus buttermaker continuous churn insulin use: without buttermaker continuous churn use Diabetes mellitus complication status: with unspecified complications Qualified Code(s): E11.8 - Type 2 diabetes mellitus with unspecified complications (4) Sepsis SNOMED Code(s): 09187193 Code(s): A41.9 - SEPSIS, UNSPECIFIED ORGANISM Status: Acute Current Visit : No Qualifiers: Sepsis type: sepsis due to unspecified organism Qualified Code(s): A41.9 - Sepsis, unspecified organism (5) Cellulitis SNOMED Code(s): 002325549 Code(s): L03.90 - CELLULITIS, UNSPECIFIED Status: Acute Current Visit: Yes - Problem List Review Problem List Initiated/Reviewed/Updated: Yes - My Orders Last 24 Hours: My Active Orders 11/08/18 12:59 ALPRAZolam [Xanax] 0.25 mg PO Q6H PRN 11/08/18 23:00 cefTRIAXone [Rocephin] 1 gm Sodium Chloride 0.9% [Normal Saline] 50 ml IV Q24H 11/09/18 10:48 OT Evaluation and Treatment [CONS] Routine PT Evaluation and Treatment [CONS] Routine 11/09/18 11:07 Nystatin [Nystatin Crm] 1 gm TOP QID PRN 11/09/18 11:44 Potassium Chloride [Klor-Con 10] 20 meq PO ONETIME ONE 11/09/18 14:00 Warfarin [Coumadin] 2.5 mg PO ONETIME ONE 11/10/18 05:11 BASIC METABOLIC PANEL,BMP [CHEM] AM CBC WITH AUTO DIFF [HEME] AM INR,PT,PROTHROMBIN TIME [COAG] AM 11/10/18 05:15 BASIC METABOLIC PANEL,BMP [CHEM] AM CBC WITH AUTO DIFF [HEME] AM 11/11/18 05:11 BASIC METABOLIC PANEL,BMP [CHEM] AM CBC WITH AUTO DIFF [HEME] AM INR,PT,PROTHROMBIN TIME [COAG] AM 11/12/18 05:11 BASIC METABOLIC PANEL,BMP [CHEM] AM CBC WITH AUTO DIFF [HEME] AM INR,PT,PROTHROMBIN TIME [COAG] AM - Plan Plan:: 78-year-old lady presented with chills, rigors. Noted to have fever, leukocytosis, elevated lactic acid sepsis due to left leg cellulitis lactic acid back to normal resolved left leg cellulitis improving Blood cultures: pending Empirical antibiotic with Rocephin Hypertension Continue losartan and hydrochlorothiazide Continue metoprolol and Cardizem Diabetes Treat with glyburide Treat with Humalog with meals Atrial fibrillation Rate control with metoprolol and Cardizem Continue anticoagulation with Coumadin Target INR 2-3 anxiety xanax prn improved DVT prophylaxis with warfarin
[2018-11-09] MEDS ORDERED: Potassium Chloride 10 MEQ Tab.ER PO ONE (12:00)
[2018-11-09] MEDS ORDERED: Warfarin 2.5 MG Tab PO ONE (14:00)
[2018-11-09] MEDS: cefTRIAXone 1 GM in Sodium Chloride 0.9% 50 ML IV SCH (22:59)
[2018-11-10 06:55] LABS: ANION GAP 15.3
[2018-11-10] MEDS: Insulin Lispro 100 Units/ML 3 ML Vial SUBCUT SCH ×2 (08:15→13:04)
[2018-11-10] MEDS: Losartan 50 MG Tab PO SCH (08:51)
[2018-11-10] MEDS: Diltiazem 180 MG Cap.CD PO SCH (08:53)
[2018-11-10] MEDS: Hydrochlorothiazide 25 MG Tab PO SCH (08:54)
[2018-11-10] MEDS: Aspirin 81 MG Tab.EC PO SCH (08:55)
[2018-11-10] MEDS: Diltiazem 120 MG Cap.CD PO SCH (08:55)
[2018-11-10] MEDS: Metoprolol Tartrate 50 MG Tab PO SCH (08:56)
[2018-11-10] MEDS: glyBURIDE 5 MG Tab PO SCH (08:57)
[2018-11-10 11:22] VITALS: BP 136/55
--- NOTE | 2018-11-10 11:36 | PCM.DCSUM1 ---
Discharge Summary - Hospital Course Free Text/Narrative:: 78 yo F with PMH of DM, obesity admitted with fever, left lower ext cellulitis. Cellulitis improved with IV abx. Was discharged on oral Keflex. Will follow up with PCP. - Discharge Data Discharge Date: 11/10/18 Discharge Disposition: Home, Self-Care 01 Condition: Good - Patient Summary/Data Consults: Consultations 11/09/18 10:48 OT Evaluation and Treatment [CONS] Routine PT Evaluation and Treatment [CONS] Routine - Patient Instructions Diet: Regular Diet as Tolerated Activity: As Tolerated - Discharge Plan Prescriptions/Med Rec: Cephalexin [Keflex] 500 mg PO TID 5 Days #15 capsule Home Medications: Home Meds Aspirin [Adult Low Dose Aspirin EC] 81 mg PO DAILY 10/11/14 [History] Diltiazem HCl [Diltiazem 24Hr ER] 300 mg PO DAILY 10/11/14 [History] Losartan/Hydrochlorothiazide [Losartan-HCTZ 100-25 MG] 1 tab PO DAILY 10/11/14 [ History] Warfarin Sodium [Jantoven] 5 mg PO ASDIRECTED 10/11/14 [History] Metoprolol Tartrate [Lopressor] 100 mg PO BID 11/19/14 [History] Cyanocobalamin (Vitamin B-12) [Cyanocobalamin Injection] 1,000 mcg IM Q30D 12/09 [History] Warfarin Sodium [Jantoven] 2.5 mg PO ASDIRECTED 12/09/16 [History] glyBURIDE [Glyburide] 5 mg PO DAILY #10 tablet 12/13/16 [Rx] Cephalexin [Keflex] 500 mg PO TID 5 Days #15 capsule 11/10/18 [Rx] Patient Handouts: Cellulitis, Adult, [id number] Referrals: Renetta Gibson PA [Primary Care Provider] - - Discharge Summary/Plan Comment DC Time >30 min.: Yes - Patient Data Vitals - Most Recent: Last Vital Signs Temp 36.8 C 11/10/18 11:21 Pulse 91 11/10/18 11:21 Resp 20 11/10/18 11:21 BP 136/55 L 11/10/18 11:21 Pulse Ox 94 L 11/10/18 11:21 Weight - Most Recent: 120.202 kg I&O - Last 24 hours: Intake & Output 11/09/18 11/10/18 11/10/18 22:59 06:59 14:59 Intake Total 460 44 363 Output Total 600 Balance -140 44 363 Lab Results - Last 24 hrs: Laboratory Results - last 24 hr 11/09/18 11/09/18 11/10/18 Range/Units 16:42 20:57 06:25 WBC 9.8 (5.0-10.0) 10^3/uL RBC 4.25 (4.2-5.4) 10^6/uL Hgb 12.0 (12.0-16.0) g/dL Hct 36.6 L (37.0-47.0) % MCV 86.1 (80-100) fL MCH 28.2 (27.0-34.0) pg MCHC 32.8 L (33.0-35.0) g/dL Plt Count 246 (150-450) 10^3/uL Neut % (Auto) 76.4 H (42.2-75.2) % Lymph % (Auto) 13.2 L (20.5-50.1) % [place] % (Auto) 6.3 (2-8) % Eos % (Auto) 3.9 H (1.0-3.0) % Baso % (Auto) 0.2 (0.0-1.0) % PT (9.0-12.0) SEC INR (0.9-1.2) Sodium (135-145) mmol/L Potassium (3.6-5.0) mmol/L Chloride (101-111) mmol/L Carbon Dioxide (21.0-31.0) mmol/L Anion Gap BUN (7-18) mg/dL Creatinine (0.6-1.3) mg/dL Est Cr Clr Drug Dosing mL/min Estimated GFR (MDRD) Glucose (74-105) mg/dL POC Glucose 82 L 163 H (83-110) mg/dl Calcium (8.4-10.2) mg/dl 11/10/18 11/10/18 11/10/18 Range/Units 06:25 06:25 07:25 WBC (5.0-10.0) 10^3/uL RBC (4.2-5.4) 10^6/uL Hgb (12.0-16.0) g/dL Hct (37.0-47.0) % MCV (80-100) fL MCH (27.0-34.0) pg MCHC (33.0-35.0) g/dL Plt Count (150-450) 10^3/uL Neut % (Auto) (42.2-75.2) % Lymph % (Auto) (20.5-50.1) % [place] % (Auto) (2-8) % Eos % (Auto) (1.0-3.0) % Baso % (Auto) (0.0-1.0) % PT 18.3 H (9.0-12.0) SEC INR 1.9 H (0.9-1.2) Sodium 134 L (135-145) mmol/L Potassium 4.3 (3.6-5.0) mmol/L Chloride 99 L (101-111) mmol/L Carbon Dioxide 24.0 (21.0-31.0) mmol/L Anion Gap 15.3 BUN 20 H (7-18) mg/dL Creatinine 1.0 (0.6-1.3) mg/dL Est Cr Clr Drug Dosing 36.41 mL/min Estimated GFR (MDRD) 54 Glucose 89 (74-105) mg/dL POC Glucose 85 (83-110) mg/dl Calcium 8.6 (8.4-10.2) mg/dl / Range/Units 11:01 WBC (5.0-10.0) 10^3/uL RBC (4.2-5.4) 10^6/uL Hgb (12.0-16.0) g/dL Hct (37.0-47.0) % MCV (80-100) fL MCH (27.0-34.0) pg MCHC (33.0-35.0) g/dL Plt Count (150-450) 10^3/uL Neut % (Auto) (42.2-75.2) % Lymph % (Auto) (20.5-50.1) % [place] % (Auto) (2-8) % Eos % (Auto) (1.0-3.0) % Baso % (Auto) (0.0-1.0) % PT (9.0-12.0) SEC INR (0.9-1.2) Sodium (135-145) mmol/L Potassium (3.6-5.0) mmol/L Chloride (101-111) mmol/L Carbon Dioxide (21.0-31.0) mmol/L Anion Gap BUN (7-18) mg/dL Creatinine (0.6-1.3) mg/dL Est Cr Clr Drug Dosing mL/min Estimated GFR (MDRD) Glucose (74-105) mg/dL POC Glucose 127 H (83-110) mg/dl Calcium (8.4-10.2) mg/dl STU Results - Last 24 hrs: Microbiology 11/07/18 22:01 Aerobic Blood Culture - Preliminary Blood - Venous - Lab Draw NO GROWTH AFTER 2 DAYS Anaerobic Blood Culture - Final 11/07/18 21:46 Aerobic Blood Culture - Preliminary Blood - Venous NO GROWTH AFTER 2 DAYS Anaerobic Blood Culture - Preliminary NO GROWTH AFTER 2 DAYS Med Orders - Current: Current Medications Acetaminophen (Tylenol) 650 mg PO Q4H PRN PRN Reason: Pain (Mild 1-3)/fever Alprazolam (Xanax) 0.25 mg PO Q6H PRN PRN Reason: Anxiety Last Admin: 11/08/18 13:12 Dose: 0.25 mg Aspirin (Halfprin) 81 mg PO DAILY [facility] Last Admin: 11/10/18 08:55 Dose: 81 mg Diltiazem HCl (Cardizem Cd) 180 mg PO DAILY [facility] Last Admin: 11/10/18 08:53 Dose: 180 mg Diltiazem HCl (Cardizem Cd) 120 mg PO DAILY [facility] Last Admin: 11/10/18 08:55 Dose: 120 mg Glyburide (Micronase) 5 mg PO DAILY@0800 [facility] Last Admin: 11/10/18 08:57 Dose: 5 mg Hydrochlorothiazide (Hydrochlorothiazide) 25 mg PO DAILY [facility] Last Admin: 11/10/18 08:54 Dose: 25 mg Ceftriaxone Sodium 1 gm/ (Sodium Chloride) 50 mls @ 50 mls/hr IV Q24H [facility] Last Admin: 11/09/18 22:59 Dose: 50 mls/hr Ibuprofen (Motrin) 400 mg PO Q6H PRN PRN Reason: Pain (mild 1-3) Insulin Human Lispro (Humalog) 0 unit SUBCUT ACBED [facility]; Protocol Last Admin: 11/10/18 08:15 Dose: Not Given Losartan Potassium (Cozaar) 100 mg PO DAILY [facility] Last Admin: 11/10/18 08:51 Dose: 100 mg Metoprolol Tartrate (Lopressor) 100 mg PO BID [facility] Last Admin: 11/10/18 08:56 Dose: 100 mg Morphine Sulfate (Morphine) 1 mg IVPUSH Q2H PRN PRN Reason: Pain (severe 7-10) Nystatin (Nystatin Crm) 1 gm TOP QID PRN PRN Reason: moist areas Ondansetron HCl (Zofran Odt) 4 mg PO Q4H PRN PRN Reason: nausea, able to take PO Ondansetron HCl (Zofran) 4 mg IVPUSH Q6H PRN PRN Reason: Nausea/Vomiting Oxycodone HCl (Oxycodone) 5 mg PO Q4H PRN PRN Reason: Pain (moderate 4-6) Sodium Chloride (Saline Flush) 10 ml FLUSH ASDIRECTED PRN PRN Reason: Keep Vein Open Last Admin: 11/09/18 00:08 Dose: 10 ml Warfarin Sodium (Pharmacy To Dose - Warfarin) 1 dose .XX ASDIRECTED [facility] Warfarin Sodium (Coumadin) 5 mg PO ONETIME ONE Stop: 11/10/18 14:01 Zolpidem Tartrate (Ambien) 5 mg PO BEDTIME PRN PRN Reason: Sleep Discontinued Medications Acetaminophen (Tylenol) 650 mg PO NOW ONE Stop: 11/07/18 21:38 Last Admin: 11/07/18 21:55 Dose: 650 mg Ceftriaxone Sodium 1 gm/ (Sodium Chloride) 50 mls @ 50 mls/hr IV ONETIME ONE Stop: 11/08/18 00:09 Last Admin: 11/07/18 23:27 Dose: 50 mls/hr Azithromycin 500 mg/ Sodium (Chloride) 250 mls @ 250 mls/hr IV Q24H [facility] Last Infusion: 11/08/18 03:34 Dose: Infused Potassium Chloride/Sodium Chloride (Normal Saline With 20 Meq Kcl) 1,000 mls @ 100 mls/hr IV ASDIRECTED [facility] Stop: 11/08/18 10:46 Last Infusion: 11/08/18 16:10 Dose: Infused Ibuprofen (Motrin) 600 mg PO ONETIME ONE Stop: 11/07/18 23:07 Last Admin: 11/07/18 23:28 Dose: 600 mg Lorazepam (Ativan) 1 mg IVPUSH ONETIME ONE Stop: 11/07/18 21:42 Last Admin: 11/07/18 21:55 Dose: 1 mg Metoclopramide HCl (Reglan) 10 mg IVPUSH ONETIME ONE Stop: 11/07/18 21:53 Last Admin: 11/07/18 22:00 Dose: 10 mg Metoprolol Tartrate (Lopressor) 50 mg PO ONETIME ONE Stop: 11/08/18 21:41 Last Admin: 11/08/18 22:29 Dose: 50 mg Potassium Chloride (Klor-Con 10) 20 meq PO ONETIME ONE Stop: 11/09/18 12:01 Last Admin: 11/09/18 13:29 Dose: 20 meq Warfarin Sodium (Coumadin) 0 mg PO ONETIME ONE Stop: 11/08/18 14:31 Last Admin: 11/08/18 16:27 Dose: Not Given Warfarin Sodium (Coumadin) 2.5 mg PO ONETIME ONE Stop: 11/09/18 14:01 Last Admin: 11/09/18 13:29 Dose: 2.5 mg
[2018-11-10] MEDS ORDERED: Warfarin 5 MG Tab PO ONE (14:00)
== END 2018-11-10 14:00 | disposition home or self-care (01) | DRG 872 ==
LOC: DL.ED 21:34 → UNDOADMIN 23:45 → DL.MS 23:45
PROVIDERS: ADMIT Internal Medicine; ATTEND Internal Medicine
DX: A41.9 Sepsis, unspecified organism (principal); L03.116 Cellulitis of left lower limb; Z68.42 Body mass index [BMI] 45.0-49.9, adult; E11.9 Type 2 diabetes mellitus without complications; E66.01 Morbid (severe) obesity due to excess calories; I10 Essential (primary) hypertension; H54.7 Unspecified visual loss; I25.10 Atherosclerotic heart disease of native coronary artery without angina pectoris; E78.00 Pure hypercholesterolemia, unspecified; I48.0 Paroxysmal atrial fibrillation; J45.909 Unspecified asthma, uncomplicated; F41.9 Anxiety disorder, unspecified; G47.30 Sleep apnea, unspecified; M19.90 Unspecified osteoarthritis, unspecified site; E53.8 Deficiency of other specified B group vitamins; Z79.82 Long term (current) use of aspirin; Z79.01 Long term (current) use of anticoagulants; Z88.8 Allergy status to other drugs, medicaments and biological substances; Z88.1 Allergy status to other antibiotic agents; Z91.041 Radiographic dye allergy status; Z88.5 Allergy status to narcotic agent; Z91.048 Other nonmedicinal substance allergy status; Z95.5 Presence of coronary angioplasty implant and graft; Z95.2 Presence of prosthetic heart valve; Z90.710 Acquired absence of both cervix and uterus; Z87.891 Personal history of nicotine dependence
CPT/HCPCS: 36415; 71045; 80048; 80053; 81003; 82150; 82553; 82962; 83605; 83690; 83880; 84484; 85025; 85379; 85610; 87040; 87804; 93005; 96365; 96375; 97162-GP; 97165-GO; 99284; 99285; A9270-GY; J0456; J0696; J1815; J2060; J2765; J3480; J7050

== ENCOUNTER 2020-07-22 10:13 | Emergency (ER) | payer MEDICARE, OTHER ==
[2020-07-22 10:34] VITALS: BP 136/61; PULSE 80
--- NOTE | 2020-07-22 10:42 | EDM.PDOC ---
ED HPI GENERAL MEDICAL PROBLEM - General Chief Complaint: Back Pain or Injury Stated Complaint: BACK PAIN LOWER RIGHT SIDE/CANNOT WALK Time Seen by Provider: 07/22/20 10:41 Source of Information: Reports: Patient, RN, RN Notes Reviewed - History of Present Illness INITIAL COMMENTS - FREE TEXT/NARRATIVE: The patient presents to the ED via personal vehicle with complaints of right, mid back pain. Per patient report, this pain began yesterday () night. It is localized to her right, mid back and does not radiate. She describes the pain as sharp in nature, and notices it when she moves or when the area is palpated. The patient does report experiencing similar pain about one week ago, but that it completely dissipated without intervention. She denies recent or past injury to the area, including falls. She denies dysuria, hematuria, melena, hematochezia, dyspepsia, fever, shaking chills, recent illness, changes in bowel/bladder patter, or saddle paraesthesia. She does attest to vaginal itching. She has not taken any medications for this problem. Right Middle Back Pain Score (Numeric/FACES): 5 - Related Data Allergies Allergy/AdvReac Type Severity Reaction Status Date / Time amlodipine besylate Allergy Tachycardia Verified 07/22/20 10:30 [From Norvasc] amoxicillin trihydrate Allergy Diarrhea Verified 07/22/20 10:30 [From Amoxil] fluconazole [From Diflucan] Allergy Arrhythmias Verified 07/22/20 10:30 Iodine and Iodide Containing Allergy Redness Verified 07/22/20 10:30 Produc levofloxacin [From Levaquin] Allergy Hives Verified 07/22/20 10:30 nickel Allergy Rash Verified 07/22/20 10:30 pravastatin Allergy sore Verified 07/22/20 10:30 muscles simvastatin [From Zocor] Allergy Muscle Verified 07/22/20 10:30 Aches atorvastatin calcium AdvReac Nausea Verified 07/22/20 10:30 [From Lipitor] dronedarone AdvReac Nausea and Verified 07/22/20 10:30 Vomiting hydrocodone AdvReac Nausea and Verified 07/22/20 10:30 Vomiting tramadol AdvReac Nausea and Verified 07/22/20 10:30 Vomiting Home Meds: Home Meds Aspirin [Adult Low Dose Aspirin EC] 81 mg PO DAILY 10/11/14 [History] Warfarin Sodium [Jantoven] 2.5 mg PO ASDIRECTED 10/11/14 [History] dilTIAZem HCL [Diltiazem 24Hr ER] 300 mg PO DAILY 10/11/14 [History] Metoprolol Tartrate [Lopressor] 100 mg PO BID 11/19/14 [History] Cyanocobalamin (Vitamin B-12) [Cyanocobalamin Injection] 1,000 mcg IM Q30D 12/09/16 [History] Warfarin Sodium [Jantoven] 5 mg PO ASDIRECTED 12/09/16 [History] glyBURIDE [Glyburide] 5 mg PO DAILY #10 tablet 12/13/16 [Rx] Losartan [Cozaar] 100 mg PO DAILY 07/22/20 [History] hydroCHLOROthiazide [Hydrochlorothiazide] 25 mg PO DAILY 07/22/20 [History] Past Medical History HEENT History: Reports: Impaired Vision Cardiovascular History: Reports: Afib, CAD, High Cholesterol, Hypertension, Other (See Below) Other Cardiovascular History: Paroxysmal Atrial Fibrillation, Aortic Stenosis Respiratory History: Reports: Asthma, Sleep Apnea Genitourinary History: Reports: Other (See Below) Other Genitourinary History: mild stress incontinence when coughing SKI MOLDER History: Reports: Other (See Below) Other SKI MOLDER History: Endometrial Hyperplasia; Dilatation & Curettage Musculoskeletal History: Reports: Arthritis Endocrine/Metabolic History: Reports: Diabetes, Type II Hematologic History: Reports: B12 Deficiency Dermatologic History: Reports: Other (See Below) Other Dermatologic History: Dry patchy area to left outer lower leg. - Infectious Disease History Infectious Disease History: Reports: Chicken Pox, Influenza - Past Surgical History Cardiovascular Surgical History: Reports: Coronary Artery Stent, Valve Replacement, Other (See Below) GI Surgical History: Reports: Hernia, Abdominal Female Surgical History: Reports: Hysterectomy, Other (See Below) Social & Family History - Family History Family Medical History: Noncontributory Cardiac: Reports: Hypertension Respiratory: Reports: None GI: Reports: None : Reports: None Neurological: Reports: CVA Endocrine/Metabolic: Reports: None Hematologic: Reports: Anemia Immunologic: Reports: None Oncologic: Reports: None - Tobacco Use Tobacco Use Status *Q: Never Tobacco User - Caffeine Use Caffeine Use: Reports: Coffee Caffeine Use Comment: Drinks 2 to 3cans of Coke per day - Recreational Drug Use Recreational Drug Use: No - Living Situation & Occupation Living situation: Reports: Occupation: Retired ED ROS GENERAL - Review of Systems Review Of Systems: Comprehensive ROS is negative, except as noted in HPI. ED EXAM,LOWER BACK PAIN/INJURY - Physical Exam Exam: See Below Exam Limited By: No Limitations General Appearance: Alert, WD/WN, No Apparent Distress Respiratory/Chest: No Respiratory Distress, Lungs Clear, Normal Breath Sounds, No Accessory Muscle Use, Chest Non-Tender Cardiovascular: Normal Peripheral Pulses, Regular Rate, Rhythm, No Edema, No Gallop, No JVD, No Murmur, No Rub GI/Abdominal: Soft, Non-Tender, No Distention, No Mass, Abnormal Bowel Sounds (Hypoactive) (Female) Exam: Deferred Rectal (Female) Exam: Deferred Back Exam: CVA Tenderness (R), Decreased Range of Motion, Paraspinal Tenderness (Right, mid back), Other (No step-off). No: CVA Tenderness (L), Vertebral Tenderness Extremities: Normal Inspection, Normal Range of Motion, Non-Tender, Normal Capillary Refill Neurological: Alert, Normal Mood/Affect, CN II-XII Intact, Normal Plantar Flexion, Oriented x 3, Difficulty Walking. No: Saddle Anesthesia Skin Exam: Warm, Dry, Intact, Normal Color, No Rash. No: Ecchymosis, Erythema, Mottled, Pallor, Petechiae, Rash Course - Vital Signs Last Recorded V/S: Last Vital Signs Temp 98.1 F 07/22/20 10:33 Pulse 80 07/22/20 10:33 Resp 20 07/22/20 10:33 BP 136/61 07/22/20 10:33 Pulse Ox 97 07/22/20 10:33 - Orders/Labs/Meds Labs: Laboratory Tests 07/22/20 07/22/20 Range/Units 11:03 11:03 WBC 10.1 H (5.0-10.0) 10^3/uL RBC 4.28 (4.2-5.4) 10^6/uL Hgb 12.1 (12.0-16.0) g/dL Hct 36.9 L (37.0-47.0) % MCV 86.2 (80-100) fL MCH 28.3 (27.0-34.0) pg MCHC 32.8 L (33.0-35.0) g/dL Plt Count 263 (150-450) 10^3/uL Neut % (Auto) 75.1 (42.2-75.2) % Lymph % (Auto) 14.0 L (20.5-50.1) % [place] % (Auto) 6.6 (2-8) % Eos % (Auto) 4.0 H (1.0-3.0) % Baso % (Auto) 0.3 (0.0-1.0) % Sodium 138 (136-145) mmol/L Potassium 4.2 (3.5-5.1) mmol/L Chloride 102 (98-107) mmol/L Carbon Dioxide 26 (21-32) mmol/L Anion Gap 14.2 H (7-13) mEq/L BUN 22 H (7-18) mg/dL Creatinine 1.13 H (0.55-1.02) mg/dL Est Cr Clr Drug Dosing 30.46 mL/min Estimated GFR (MDRD) 46 BUN/Creatinine Ratio 19.5 (No establ ref range) Glucose 120 H (74-99) mg/dL Calcium 8.9 (8.5-10.1) mg/dL Total Bilirubin 0.6 (0.2-1.0) mg/dL AST 16 (15-37) U/L ALT 17 (14-59) U/L Alkaline Phosphatase 76 (46-116) U/L C-Reactive Protein 4.4 H (0.0-0.9) mg/dL Total Protein 6.4 (6.4-8.2) g/dL Albumin 2.9 L (3.4-5.0) g/dL Globulin 3.5 Albumin/Globulin Ratio 0.83 Meds: Medications Discontinued Medications Generic Name Dose Route Start Last Admin Trade Name Freq PRN Reason Stop Dose Admin Cyclobenzaprine HCl 10 mg 07/22/20 11:24 07/22/20 11:38 Flexeril PO 07/22/20 11:25 10 mg ONETIME ONE Administration Dexamethasone 10 mg 07/22/20 12:54 07/22/20 13:02 Dexamethasone IM 07/22/20 12:55 10 mg ONETIME ONE Administration Ketorolac Tromethamine 15 mg 07/22/20 12:55 07/22/20 13:02 Toradol IM 07/22/20 12:56 15 mg ONETIME ONE Administration - Re-Assessments/Exams Free Text/Narrative Re-Assessment/Exam: 07/22/20 13:15 Patient stating relief to back with muscle relaxer and steroid/Toradol injection. UA unremarkable. Incidental finding of left renal calculus discussed with patient, but given pain is reproducible (and on the right) this is not likely the cause of her back pain. Discussed importance of following up with PCP for ongoing management of back pain. Departure - Departure Time of Disposition: 13:13 Disposition: Home, Self-Care 01 Condition: Good Clinical Impression: Back pain Qualifiers: Back pain location: low back pain Chronicity: acute Back pain laterality: right Sciatica presence: with sciatica Sciatica laterality: sciatica of right side Qualified Code(s): M54.41 - Lumbago with sciatica, right side - Discharge Information *PRESCRIPTION DRUG MONITORING PROGRAM REVIEWED*: Not Applicable *COPY OF PRESCRIPTION DRUG MONITORING REPORT IN PATIENT KAE: Not Applicable Forms: ED Department Discharge Additional Instructions: Rx: Cyclobenzaprine Follow up with primary care provider in the next few days to discuss ongoing management of sciatica pain. Drink lots of fluids to help your kidneys flush the pain medications you were given. Sepsis Event Note (ED) - Evaluation Sepsis Screening Result: No Definite Risk - Focused Exam Vital Signs: Vital Signs Temp Pulse Resp BP Pulse Ox 07/22/20 10:33 98.1 F 80 20 136/61 97
[2020-07-22] MEDS ORDERED: Cyclobenzaprine 10 MG Tab PO ONE (11:24)
[2020-07-22 11:47] LABS: ANION GAP 14.2 mEq/L (7-13)
--- NOTE | 2020-07-22 12:09 | CR ---
EXAMINATION: Thoracolumbar 2V SEX: Female AGE: 80 years CLINICAL HISTORY: 80-year-old female complaining of mid BACK PAIN, on the right. Interpretation: ABNORMAL. Exaggerated lumbar lordosis, signs of multilevel spinal disc disease, spondylolisthesis and hypertrophic spondylosis lumbar/lower thoracic spine. 1. Exaggerated lumbar lordosis with mild dextrorotoscoliosis. Hypertrophic marginal spondylosis. 2. Mild retrolisthesis L2 vertebral body. 3. Evidence of multilevel lower thoracic, upper lumbar and mid lumbar disc disease i.e. interspace narrowing with endplate sclerosis all levels lower thoracic spine, T12-L1, L2-L3, and L3-4 spine. 4. No pathologic skeletal lesion, lumbar fracture or other dislocation. 5. Asymmetric arthritic sclerosis and apparent ankylosis SI joint, on the left. Symmetric normal hip joints. 6. Lung bases clear. Sternotomy wires. Cardiac valve prosthesis. Probable calculus renal pelvis on the left.
[2020-07-22] MEDS ORDERED: Dexamethasone 4 MG/ML SDV IM ONE (12:54)
[2020-07-22] MEDS ORDERED: Ketorolac 30 MG/ML SDV IM ONE (12:55)
== END 2020-07-22 14:02 | disposition home or self-care (01) ==
LOC: DL.ED 10:13
DX: M54.41 Lumbago with sciatica, right side (principal); I48.91 Unspecified atrial fibrillation; I25.10 Atherosclerotic heart disease of native coronary artery without angina pectoris; I10 Essential (primary) hypertension; J45.909 Unspecified asthma, uncomplicated; M19.90 Unspecified osteoarthritis, unspecified site; E11.9 Type 2 diabetes mellitus without complications; Z88.8 Allergy status to other drugs, medicaments and biological substances; Z88.1 Allergy status to other antibiotic agents; Z91.048 Other nonmedicinal substance allergy status; Z88.5 Allergy status to narcotic agent; Z79.82 Long term (current) use of aspirin; Z79.84 Long term (current) use of oral hypoglycemic drugs; Z79.899 Other long term (current) drug therapy
CPT/HCPCS: 36415; 72080; 80053; 81001; 85025; 86140; 96372; 99283; A9270; J1100; J1885

== ENCOUNTER 2020-11-06 06:49 | Day surgery (SDC) | payer MEDICARE, OTHER ==
[~2020-11-06 06:49] MED LIST: Proparacaine 0.5% Ophth Soln 15 ML Bottle ONE
[2020-11-06] MEDS ORDERED: Midazolam 1 MG/ML 2 ML SDV IV ONE (06:50)
[2020-11-06] MEDS ORDERED: Dexamethasone 4 MG/ML SDV IM ONE (06:50)
[2020-11-06] MEDS ORDERED: Sodium Chloride 0.9% 10 ML Syringe IV ONE (06:50)
[2020-11-06] MEDS ORDERED: Moxifloxacin 0.5% Ophth Soln 3 ML Bottle EYELF ONE (07:00)
[2020-11-06] MEDS ORDERED: Povidone-Iodine 5% Sterile Ophth Soln 30 ML Bottle EYELF ONE ×2 (07:00→08:18)
[2020-11-06] MEDS ORDERED: Ondansetron 4 MG/2 ML SDV IVPUSH PRN (07:00)
[2020-11-06] MEDS ORDERED: Cataract Ophth Solution EYELF ONE (07:00)
[2020-11-06] MEDS ORDERED: Proparacaine 0.5% Ophth Soln 15 ML Bottle EYELF ONE (07:00)
[2020-11-06] MEDS ORDERED: Sodium Chloride 0.9% 10 ML Syringe FLUSH PRN (07:00)
[2020-11-06] MEDS ORDERED: Tropicamide 1% Ophth Soln 15 ML Bottle EYELF ONE (07:00)
[2020-11-06] MEDS ORDERED: Acetaminophen 325 MG Tab PO PRN (07:00)
[2020-11-06] MEDS ORDERED: Phenylephrine 10% Ophth Soln 5 ML Bot EYELF ONE (07:00)
[2020-11-06] MEDS ORDERED: Phenylephrine 10% Ophth Soln 5 ML Bot EYELF PRN (07:00)
[2020-11-06] MEDS ORDERED: Timolol Maleate 0.5% Ophth Soln 5 ML Bottle EYELF ONE (07:00)
[2020-11-06] MEDS ORDERED: Tetracaine HCl/PF 0.5% 4 ML Bottle EYELF ONE (08:17)
[2020-11-06] MEDS ORDERED: Lidocaine 1% 30 ML SDV ONE (08:18)
[2020-11-06] MEDS ORDERED: Diclofenac Sodium 0.1% Ophth Soln 5 ML Bottle EYELF ONE (08:19)
[2020-11-06] MEDS ORDERED: Apraclonidine 0.5% Ophth Soln 5 ML Bot EYELF ONE (08:19)
[2020-11-06] MEDS ORDERED: Dexamethasone/Neomycin/Polymyxin B Ophth Oint 3.5 GM Tube EYELF ONE (08:20)
[2020-11-06] MEDS ORDERED: Balanced Salt Solution Ophth Irrig 500 ML Bottle IOCULAR ONE (08:20)
[2020-11-06] MEDS ORDERED: Vancomycin 500 MG SDV EYELF ONE (08:20)
[2020-11-06] MEDS ORDERED: Chondroitin Sulfate/Hyaluronate Sodium Ophth Inj 0.75 ML Syringe EYELF ONE (08:20)
--- NOTE | 2020-11-06 09:56 | OR ---
DATE: 11/06/2020 PREOPERATIVE DIAGNOSIS: Visually significant mixed cataract, left eye. POSTOPERATIVE DIAGNOSIS: Visually significant mixed cataract, left eye. PROCEDURE: Extracapsular cataract extraction with intraocular lens implant, left eye. ANESTHESIA: Topical/local MAC. COMPLICATIONS: None. INDICATION: Mrs. Cuevas was seen in the clinic. She is unhappy with her vision noticing a slow progressive change in vision. She has difficulty with multiple activities of daily living. She is struggling with reading. She saw her regular panel machine setter, Dr. Cheryl Grimes. Dr. Grimes was unable to improve her vision with change in glasses. Examination reveals mixed cataract. I explained options, offered cataract surgery, and I explained risks including, but not limited to infection, retinal detachment, loss of vision, need for additional surgery, and risks associated with anesthesia. We discussed implant options. She has requested a monofocal implant. She is comfortable wearing glasses following surgery if necessary. OPERATIVE DESCRIPTION: After informed consent was obtained and the risks, benefits, and alternatives were explained, the patient was brought to the operative suite and topical anesthesia was administered. The patient was then prepped and draped in the sterile fashion and attention was placed on the left eye. A sterile lid speculum was placed into the left eye to allow operative exposure. A full-thickness paracentesis was made in the temporal portion of the operative eye. Preservative-free lidocaine 0.1 mL was injected into the anterior chamber followed by viscoelastic. A full-thickness corneal incision was then made into the anterior chamber. A bent needle cystotome was used to create a small luda in the anterior capsule. The capsulorrhexis forceps was then used to create a 360-degree curvilinear capsulorrhexis. The nucleus was then removed using a phacoemulsification handpiece and the remaining cortical material was then removed with irrigation and aspiration handpiece. Following removal of the cortical material, the capsular bag was then inspected and noted to be free of any holes or tears. Viscoelastic was then injected into the capsular bag and the intraocular lens was inserted into the capsular bag. The viscoelastic material was then removed from both the anterior and posterior chambers and from behind the IOL. The lens and capsular bag were then reinspected. The IOL was well centered and the capsular bag intact. The wound and paracentesis sites were inspected and hydrated with balanced saline solution. Both were found to be self- sealing. The intraocular pressure was assessed digitally and found to be within normal range. A good red reflex was noted at the completion of the procedure. No complications occurred during the operation. At the completion of the procedure, Maxitrol, Voltaren, and Iopidine drops were placed into the operative eye. A sterile eye shield was placed over the operative eye and the patient was transported to the postoperative recovery area having tolerated the procedure well. Postoperative instructions were given along with a postoperative appointment. The patient was advised to call with any questions or concerns. [facility] /[id number]
[2020-11-06 10:47] VITALS: BP 123/80; PULSE 84
== END 2020-11-06 09:30 | disposition home or self-care (01) ==
LOC: DL.SDS 06:49
PROVIDERS: ATTEND Ophthalmology
DX: E11.36 Type 2 diabetes mellitus with diabetic cataract (principal); H26.8 Other specified cataract; I25.10 Atherosclerotic heart disease of native coronary artery without angina pectoris; E78.5 Hyperlipidemia, unspecified; I10 Essential (primary) hypertension; I48.20 Chronic atrial fibrillation, unspecified; I35.0 Nonrheumatic aortic (valve) stenosis; E66.01 Morbid (severe) obesity due to excess calories; Z95.5 Presence of coronary angioplasty implant and graft; Z87.891 Personal history of nicotine dependence; Z79.899 Other long term (current) drug therapy; Z79.84 Long term (current) use of oral hypoglycemic drugs; Z98.890 Other specified postprocedural states; Z88.1 Allergy status to other antibiotic agents; Z88.8 Allergy status to other drugs, medicaments and biological substances; Z68.42 Body mass index [BMI] 45.0-49.9, adult
CPT/HCPCS: 00142; 66984; 82962; A9270; J1100; J2250; J3370; V2632

== ENCOUNTER 2020-11-13 06:50 | Day surgery (SDC) | payer MEDICARE, OTHER ==
[2020-11-13] MEDS ORDERED: Midazolam 1 MG/ML 2 ML SDV IV ONE (06:51)
[2020-11-13] MEDS ORDERED: Dexamethasone 4 MG/ML SDV IV ONE (06:51)
[2020-11-13] MEDS ORDERED: Sodium Chloride 0.9% 10 ML Syringe IV ONE (06:51)
[2020-11-13] MEDS ORDERED: Phenylephrine 10% Ophth Soln 5 ML Bot EYERT ONE ×2 (07:00→08:39)
[2020-11-13] MEDS ORDERED: Cataract Ophth Solution EYERT ONE (07:00)
[2020-11-13] MEDS ORDERED: Timolol Maleate 0.5% Ophth Soln 5 ML Bottle EYERT ONE (07:00)
[2020-11-13] MEDS ORDERED: Phenylephrine 10% Ophth Soln 5 ML Bot EYERT PRN (07:00)
[2020-11-13] MEDS ORDERED: Sodium Chloride 0.9% 10 ML Syringe FLUSH PRN (07:00)
[2020-11-13] MEDS ORDERED: Acetaminophen 325 MG Tab PO PRN (07:00)
[2020-11-13] MEDS ORDERED: Tropicamide 1% Ophth Soln 15 ML Bottle EYERT ONE (07:00)
[2020-11-13] MEDS ORDERED: Moxifloxacin 0.5% Ophth Soln 3 ML Bottle EYERT ONE (07:00)
[2020-11-13] MEDS ORDERED: Ondansetron 4 MG/2 ML SDV IVPUSH PRN (07:00)
[2020-11-13] MEDS ORDERED: Proparacaine 0.5% Ophth Soln 15 ML Bottle EYERT ONE (07:00)
[2020-11-13] MEDS ORDERED: Povidone-Iodine 5% Sterile Ophth Soln 30 ML Bottle EYERT ONE ×2 (07:00→08:35)
[2020-11-13] MEDS ORDERED: Apraclonidine 0.5% Ophth Soln 5 ML Bot EYERT ONE (08:35)
[2020-11-13] MEDS ORDERED: Tetracaine HCl/PF 0.5% 4 ML Bottle EYERT ONE (08:35)
[2020-11-13] MEDS ORDERED: Lidocaine 1% 30 ML SDV ONE (08:35)
[2020-11-13] MEDS ORDERED: Vancomycin 500 MG SDV EYERT ONE (08:36)
[2020-11-13] MEDS ORDERED: Diclofenac Sodium 0.1% Ophth Soln 5 ML Bottle EYERT ONE (08:36)
[2020-11-13] MEDS ORDERED: Chondroitin Sulfate/Hyaluronate Sodium Ophth Inj 0.75 ML Syringe EYERT ONE (08:38)
[2020-11-13] MEDS ORDERED: Balanced Salt Solution Ophth Irrig 500 ML Bottle IOCULAR ONE (08:38)
--- NOTE | 2020-11-13 10:40 | OR ---
DATE: 11/13/2020 PREOPERATIVE DIAGNOSIS: Visually significant mixed cataract, right eye. POSTOPERATIVE DIAGNOSIS: Visually significant mixed cataract, right eye. PROCEDURE: Extracapsular cataract extraction with intraocular lens implant, right eye. ANESTHESIA: Topical/local MAC. COMPLICATIONS: None. INDICATION: Ms. Cuevas was seen in the clinic with complaints of blurred vision. The examination revealed visually significant mixed cataract. I have explained options, offered cataract surgery and I explained risks including, but not limited to infection, retinal detachment, loss of vision, need for additional surgery, and risks associated with anesthesia. We discussed implant options. She has requested a monofocal implant. She is comfortable wearing glasses following surgery if necessary. She is unhappy with her vision and requested surgery to improve vision and function. She saw her regular animal laboratory technician, Dr. Grimes. Dr. Grimes was unable to meet her visual needs with a change in glasses. OPERATIVE DESCRIPTION: After informed consent was obtained and the risks, benefits, and alternatives were explained, the patient was brought to the operative suite and topical anesthesia was administered. The patient was then prepped and draped in the sterile fashion and attention was placed on the right eye. A sterile lid speculum was placed into the right eye to allow operative exposure. A full-thickness paracentesis was made in the temporal portion of the operative eye. Preservative-free lidocaine 0.1 mL was injected into the anterior chamber followed by viscoelastic. A full-thickness corneal incision was then made into the anterior chamber. A bent needle cystotome was used to create a small luda in the anterior capsule. The capsulorrhexis forceps was then used to create a 360-degree curvilinear capsulorrhexis. The nucleus was then removed using a phacoemulsification handpiece and the remaining cortical material was then removed with irrigation and aspiration handpiece. Following removal of the cortical material, the capsular bag was then inspected and noted to be free of any holes or tears. Viscoelastic was then injected into the capsular bag and the intraocular lens was inserted into the capsular bag. The viscoelastic material was then removed from both the anterior and posterior chambers and from behind the IOL. The lens and capsular bag were then reinspected. The IOL was well centered and the capsular bag intact. The wound and paracentesis sites were inspected and hydrated with balanced saline solution. Both were found to be self- sealing. The intraocular pressure was assessed digitally and found to be within normal range. A good red reflex was noted at the completion of the procedure. No complications occurred during the operation. At the completion of the procedure, Maxitrol, Voltaren, and Iopidine drops were placed into the operative eye. A sterile eye shield was placed over the operative eye and the patient was transported to the postoperative recovery area having tolerated the procedure well. Postoperative instructions were given along with a postoperative appointment. The patient was advised to call with any questions or concerns. [facility] /[id number]
[2020-11-14 06:39] VITALS: BP 130/57; PULSE 83
== END 2020-11-13 09:38 | disposition home or self-care (01) ==
LOC: DL.SDS 06:50
PROVIDERS: ATTEND Ophthalmology
DX: E11.36 Type 2 diabetes mellitus with diabetic cataract (principal); H26.8 Other specified cataract; L30.4 Erythema intertrigo; I25.10 Atherosclerotic heart disease of native coronary artery without angina pectoris; I48.20 Chronic atrial fibrillation, unspecified; E78.5 Hyperlipidemia, unspecified; I10 Essential (primary) hypertension; G47.33 Obstructive sleep apnea (adult) (pediatric); E66.9 Obesity, unspecified; Z68.42 Body mass index [BMI] 45.0-49.9, adult; Z87.891 Personal history of nicotine dependence; Z79.84 Long term (current) use of oral hypoglycemic drugs; Z79.01 Long term (current) use of anticoagulants; Z79.899 Other long term (current) drug therapy; Z88.1 Allergy status to other antibiotic agents; Z88.5 Allergy status to narcotic agent; Z88.8 Allergy status to other drugs, medicaments and biological substances; Z95.5 Presence of coronary angioplasty implant and graft; Z95.818 Presence of other cardiac implants and grafts; Z98.890 Other specified postprocedural states
CPT/HCPCS: 00142; 66984; J1100; J2250; J3370; V2632

== ENCOUNTER 2024-02-21 08:57 | Inpatient (IN) | payer MEDICARE, OTHER ==
[2024-02-21 09:35] LABS: APPEARANCE,URINE CLEAR (CLEAR); BILIRUBIN,URINE NEGATIVE (NEGATIVE); COLOR,URINE YELLOW (YELLOW); GLUCOSE,URINE NEGATIVE (NEGATIVE); KETONES,URINE NEGATIVE (NEGATIVE); LEUKOCYTE ESTERASE,URINE NEGATIVE (NEGATIVE); NITRITE,URINE NEGATIVE (NEGATIVE); OCCULT BLOOD,URINE NEGATIVE (NEGATIVE); PH,URINE 5.5 (5.0-9.0); PROTEIN,URINE 30 (NEGATIVE)
[2024-02-21 09:47] LABS: BACTERIA,URINE FEW /HPF (0-FEW/HPF); EPITHELIAL CELLS,URINE FEW /HPF (NOT SEEN); MUCUS,URINE MODERATE /LPF (NOT SEEN); RBC,URINE 0-5 /HPF (0-5)
[2024-02-21 10:04] LABS: BASOPHILS PERCENT AUTO 0.2 % (0.0-1.0); EOSINOPHILS PERCENT AUTO 2.6 % (1.0-3.0); HEMATOCRIT 36.7 % (37.0-47.0); MEAN CORPUSCULAR HEMOGLOBIN 29.2 pg (27.0-34.0); MEAN CORPUSCULAR HGB CONC 32.7 g/dL (33.0-35.0); MEAN CORPUSCULAR VOLUME 89.3 fL (80-100); MONOCYTES PERCENT AUTO 7.8 % (2-8); NEUTROPHILS PERCENT AUTO 79.4 % (42.2-75.2); PLATELET COUNT,PLT 279 10^3/uL (150-450); RED BLOOD CELL COUNT 4.11 10^6/uL (4.2-5.4)
[2024-02-21] MEDS: Sodium Chloride 0.9% 10 ML Syringe FLUSH PRN (10:22)
[2024-02-21 10:23] LABS: ALBUMIN 2.5 g/dL (3.4-5.0); ANION GAP 11.4 mEq/L (7-13); BILIRUBIN TOTAL 0.5 mg/dL (0.2-1.0); BUN/CREATININE RATIO 21.1 (No establ ref range); C-REACTIVE PROTEIN 7.72 ng/dL (<=0.50); CALCIUM 8.5 mg/dL (8.5-10.1); CREATININE 1.47 mg/dL (0.55-1.02); EST CRCL DRUG DOSING (CG) 23.34 mL/min; POTASSIUM,K 4.4 mmol/L (3.5-5.1); PROTEIN TOTAL,TP 6.6 g/dL (6.4-8.2)
[2024-02-21] MEDS: Micafungin 150 MG in Sodium Chloride 0.9% 100 ML IV ONE (10:23)
[2024-02-21 10:27] LABS: LACTIC ACID 1.6 mmol/L (0.4-2.0)
[2024-02-21 10:33] LABS: A/G RATIO 0.61
[2024-02-21] MEDS ORDERED: Temazepam 15 MG Cap PO PRN (11:51)
[2024-02-21] MEDS ORDERED: Naloxone 2 MG/2 ML Syringe IVPUSH PRN (11:51)
[2024-02-21] MEDS ORDERED: HYDROmorphone 0.5 MG/0.5 ML Syringe IVPUSH PRN (11:51)
[2024-02-21] MEDS ORDERED: Ondansetron 4 MG/2 ML SDV IVPUSH PRN (11:51)
[2024-02-21] MEDS ORDERED: Glucagon,Human Recombinant 1 MG Vial IM PRN (12:03)
[2024-02-21] MEDS ORDERED: 50% Dextrose in Water 50 ML Syringe IVPUSH PRN (12:03)
[2024-02-21] MEDS ORDERED: Warfarin 5 MG Tab PO SCH ×2 (12:15)
[2024-02-21] MEDS ORDERED: Non-Formulary Medication 1 Each (Metoprolol Tartrate 100 MG Tablet) PO SCH (12:15)
[2024-02-21] MEDS ORDERED: Diclofenac Sodium 1% Gel 100 GM Tube SCH (12:15)
[2024-02-21] MEDS ORDERED: hydrALAZINE 20 MG/ML SDV IVPUSH PRN (12:19)
[2024-02-21] MEDS ORDERED: Metoprolol Tartrate 5 MG/5 ML SDV IVPUSH PRN (12:19)
[2024-02-21] MEDS: cefTRIAXone 2 GM Vial IVPUSH ONE (12:57)
[2024-02-21 13:05] LABS: INR 2.7 (0.9-1.2); PROTHROMBIN TIME 26.4 SEC (9.0-12.0)
[2024-02-21] MEDS: Sodium Chloride 0.9% 1,000 ML IV SCH (13:09)
[2024-02-21] MEDS: Nystatin Topical Powder 60 GM Bottle TOP ONE (14:13)
[2024-02-21] MEDS: Nystatin Topical Powder 60 GM Bottle TOP SCH (14:36)
[2024-02-21] MEDS: Nystatin Topical Powder 30 GM Bottle TOP SCH (15:32)
[2024-02-21] MEDS: Insulin Lispro 100 Units/ML 3 ML Vial SUBCUT SCH (18:28)
[2024-02-21] MEDS: Saccharomyces Boulardii (Probiotic) 250 MG Cap PO SCH (21:19)
[2024-02-21] MEDS: Metoprolol Tartrate 50 MG Tab PO SCH (21:21)
[2024-02-21] MEDS: Warfarin 5 MG Tab PO ONE (22:11)
[2024-02-22 06:35] LABS: BASOPHILS PERCENT AUTO 0.2 % (0.0-1.0); HEMATOCRIT 34.3 % (37.0-47.0); LYMPHOCYTES PERCENT AUTO 11.5 % (20.5-50.1); MEAN CORPUSCULAR HEMOGLOBIN 28.9 pg (27.0-34.0); MEAN CORPUSCULAR HGB CONC 32.1 g/dL (33.0-35.0); MEAN CORPUSCULAR VOLUME 90.3 fL (80-100); MONOCYTES PERCENT AUTO 7.4 % (2-8); NEUTROPHILS PERCENT AUTO 79.9 % (42.2-75.2); PLATELET COUNT,PLT 269 10^3/uL (150-450); WHITE BLOOD CELL COUNT,WBC 10.5 10^3/uL (5.0-10.0)
[2024-02-22] MEDS ORDERED: diphenhydrAMINE 25 MG Tab PO PRN (06:39)
[2024-02-22 06:49] LABS: INR 3.5 (0.9-1.2); PROTHROMBIN TIME 33.5 SEC (9.0-12.0)
[2024-02-22 07:10] LABS: ALBUMIN 2.1 g/dL (3.4-5.0); ANION GAP 12.1 mEq/L (7-13); BILIRUBIN TOTAL 0.3 mg/dL (0.2-1.0); C-REACTIVE PROTEIN 5.86 ng/dL (<=0.50); CALCIUM 8.1 mg/dL (8.5-10.1); CREATININE 1.2 mg/dL (0.55-1.02); EST CRCL DRUG DOSING (CG) 28.59 mL/min; MAGNESIUM 1.4 mg/dL (1.8-2.4); POTASSIUM,K 4.1 mmol/L (3.5-5.1); PROTEIN TOTAL,TP 5.9 g/dL (6.4-8.2)
[2024-02-22 07:16] LABS: A/G RATIO 0.55
[2024-02-22] MEDS ORDERED: Emollient Combination No.71 177 ML Bottle TOP PRN (07:27)
[2024-02-22] MEDS: Magnesium Sulfate/Water 2 GM in Premix Bag 1 BAG IV ONE (09:27)
[2024-02-22] MEDS: Micafungin 150 MG in Sodium Chloride 0.9% 100 ML IV SCH (09:27)
[2024-02-22] MEDS: Diltiazem 120 MG Cap.CD PO SCH (09:28)
[2024-02-22] MEDS: Famotidine 20 MG Tab PO SCH (09:29)
[2024-02-22] MEDS: Glimepiride 2 MG Tab PO SCH (09:29)
[2024-02-22] MEDS: Diltiazem 180 MG Cap.CD PO SCH (09:29)
[2024-02-22] MEDS: cefTRIAXone 2 GM Vial IVPUSH SCH (09:30)
[2024-02-22] MEDS: Benzonatate 100 MG Cap PO PRN (18:49)
[2024-02-22] MEDS ORDERED: Codeine/Promethazine 10-6.25 MG/5 ML Syrup 5 ML UD Cup PO SCH (22:00)
[2024-02-22] MEDS: Codeine/Promethazine 10-6.25 MG/5 ML Syrup 5 ML UD Cup PO PRN (22:12)
[2024-02-23 06:34] LABS: BASOPHILS PERCENT AUTO 0.1 % (0.0-1.0); EOSINOPHILS PERCENT AUTO 1.4 % (1.0-3.0); HEMATOCRIT 38.6 % (37.0-47.0); HEMOGLOBIN 12.3 g/dL (12.0-16.0); LYMPHOCYTES PERCENT AUTO 10.3 % (20.5-50.1); MEAN CORPUSCULAR HEMOGLOBIN 28.7 pg (27.0-34.0); MEAN CORPUSCULAR HGB CONC 31.9 g/dL (33.0-35.0); MONOCYTES PERCENT AUTO 7.1 % (2-8); NEUTROPHILS PERCENT AUTO 81.1 % (42.2-75.2); PLATELET COUNT,PLT 310 10^3/uL (150-450); RED BLOOD CELL COUNT 4.29 10^6/uL (4.2-5.4); WHITE BLOOD CELL COUNT,WBC 14.3 10^3/uL (5.0-10.0)
[2024-02-23 06:55] LABS: INR 3.8 (0.9-1.2); PROTHROMBIN TIME 36.5 SEC (9.0-12.0)
[2024-02-23 07:00] LABS: ALBUMIN 2.3 g/dL (3.4-5.0); ANION GAP 16.6 mEq/L (7-13); BILIRUBIN TOTAL 0.4 mg/dL (0.2-1.0); C-REACTIVE PROTEIN 5.83 ng/dL (<=0.50); CALCIUM 8.5 mg/dL (8.5-10.1); CREATININE 1.25 mg/dL (0.55-1.02); EST CRCL DRUG DOSING (CG) 27.44 mL/min; MAGNESIUM 1.7 mg/dL (1.8-2.4); POTASSIUM,K 4.6 mmol/L (3.5-5.1); PROTEIN TOTAL,TP 6.8 g/dL (6.4-8.2)
[2024-02-23 07:15] LABS: A/G RATIO 0.51
[2024-02-23] MEDS: Albuterol/Ipratropium 3.0-0.5 MG/3 ML Neb Soln NEB PRN (10:01)
[2024-02-23] MEDS: Bumetanide 1 MG/4 ML MDV IVPUSH ONE (10:06)
[2024-02-23] MEDS: Magnesium Sulfate/Water 2 GM in Premix Bag 1 BAG IV ONE ×3 (12:07→14:25)
[2024-02-23] MEDS: cloNIDine 0.1 MG Tab PO ONE (12:19)
[2024-02-23] MEDS: Pantoprazole 40 MG Tab.CR PO SCH (17:36)
[2024-02-24 06:09] LABS: BASOPHILS PERCENT AUTO 0.2 % (0.0-1.0); EOSINOPHILS PERCENT AUTO 2.2 % (1.0-3.0); HEMATOCRIT 35.5 % (37.0-47.0); HEMOGLOBIN 11.5 g/dL (12.0-16.0); MEAN CORPUSCULAR HEMOGLOBIN 29.1 pg (27.0-34.0); MEAN CORPUSCULAR HGB CONC 32.4 g/dL (33.0-35.0); MEAN CORPUSCULAR VOLUME 89.9 fL (80-100); MONOCYTES PERCENT AUTO 6.8 % (2-8); NEUTROPHILS PERCENT AUTO 79.8 % (42.2-75.2); PLATELET COUNT,PLT 277 10^3/uL (150-450); RED BLOOD CELL COUNT 3.95 10^6/uL (4.2-5.4)
[2024-02-24 06:34] LABS: ALBUMIN 2.2 g/dL (3.4-5.0); ANION GAP 14.3 mEq/L (7-13); BILIRUBIN TOTAL 0.5 mg/dL (0.2-1.0); BUN/CREATININE RATIO 12.8 (No establ ref range); C-REACTIVE PROTEIN 8.53 ng/dL (<=0.50); CALCIUM 8.5 mg/dL (8.5-10.1); CREATININE 1.25 mg/dL (0.55-1.02); EST CRCL DRUG DOSING (CG) 27.44 mL/min; MAGNESIUM 2.4 mg/dL (1.8-2.4); POTASSIUM,K 4.3 mmol/L (3.5-5.1); PROTEIN TOTAL,TP 6.4 g/dL (6.4-8.2)
[2024-02-24 06:36] LABS: INR 3.1 (0.9-1.2); PROTHROMBIN TIME 29.8 SEC (9.0-12.0)
[2024-02-24 06:46] LABS: A/G RATIO 0.52
[2024-02-24] MEDS: Ibuprofen 600 MG Tab PO PRN (08:48)
[2024-02-24] MEDS: Bumetanide 1 MG Tab PO SCH (08:55)
[2024-02-24] MEDS ORDERED: Warfarin 5 MG Tab PO SCH (09:00)
[2024-02-24] MEDS: cloNIDine 0.1 MG Tab PO SCH (10:22)
[2024-02-24] MEDS ORDERED: Warfarin 2 MG Tab PO SCH ×3 (12:15→14:30)
[2024-02-24] MEDS ORDERED: Acetaminophen/Butalbital/Caffeine 325-50-40 MG Tab PO PRN (19:50)
[2024-02-24] MEDS: Warfarin 5 MG Tab PO SCH (20:42)
[2024-02-25 06:40] LABS: BASOPHILS PERCENT AUTO 0.3 % (0.0-1.0); EOSINOPHILS PERCENT AUTO 3.1 % (1.0-3.0); HEMATOCRIT 33.7 % (37.0-47.0); HEMOGLOBIN 10.9 g/dL (12.0-16.0); LYMPHOCYTES PERCENT AUTO 9.9 % (20.5-50.1); MEAN CORPUSCULAR HEMOGLOBIN 29.3 pg (27.0-34.0); MEAN CORPUSCULAR HGB CONC 32.3 g/dL (33.0-35.0); MEAN CORPUSCULAR VOLUME 90.6 fL (80-100); MONOCYTES PERCENT AUTO 6.5 % (2-8); NEUTROPHILS PERCENT AUTO 80.2 % (42.2-75.2); PLATELET COUNT,PLT 294 10^3/uL (150-450); RED BLOOD CELL COUNT 3.72 10^6/uL (4.2-5.4); WHITE BLOOD CELL COUNT,WBC 11.2 10^3/uL (5.0-10.0)
[2024-02-25 06:47] LABS: INR 3.1 (0.9-1.2); PROTHROMBIN TIME 30.1 SEC (9.0-12.0)
[2024-02-25 06:53] LABS: ALBUMIN 2.1 g/dL (3.4-5.0); BILIRUBIN TOTAL 0.5 mg/dL (0.2-1.0); BUN/CREATININE RATIO 15.3 (No establ ref range); C-REACTIVE PROTEIN 11.02 ng/dL (<=0.50); CALCIUM 8.3 mg/dL (8.5-10.1); CREATININE 1.31 mg/dL (0.55-1.02); EST CRCL DRUG DOSING (CG) 26.19 mL/min; MAGNESIUM 1.8 mg/dL (1.8-2.4); PROTEIN TOTAL,TP 6.2 g/dL (6.4-8.2)
[2024-02-25 06:54] LABS: A/G RATIO 0.51
[2024-02-25] MEDS: Warfarin 2 MG Tab PO SCH (20:38)
[2024-02-26] MEDS: traMADol 50 MG Tab PO PRN (00:45)
[2024-02-26] MEDS: Melatonin 3 MG Tab PO PRN (00:45)
[2024-02-26] MEDS: cloNIDine 0.1 MG Tab PO SCH (09:42)
[2024-02-26] MEDS: Fluconazole 100 MG Tab PO SCH (09:50)
[2024-02-26 18:44] LABS: INR 3.6 (0.9-1.2); PROTHROMBIN TIME 34.6 SEC (9.0-12.0)
[2024-02-27 06:56] LABS: INR 3.4 (0.9-1.2); PROTHROMBIN TIME 32.5 SEC (9.0-12.0)
[2024-02-27 07:06] LABS: ALBUMIN 2.2 g/dL (3.4-5.0); ANION GAP 12.2 mEq/L (7-13); BILIRUBIN TOTAL 0.2 mg/dL (0.2-1.0); BUN/CREATININE RATIO 23.2 (No establ ref range); CALCIUM 8.5 mg/dL (8.5-10.1); CREATININE 1.38 mg/dL (0.55-1.02); EST CRCL DRUG DOSING (CG) 24.86 mL/min; POTASSIUM,K 4.2 mmol/L (3.5-5.1); PROTEIN TOTAL,TP 6.4 g/dL (6.4-8.2)
[2024-02-27 07:11] LABS: A/G RATIO 0.52
[2024-02-27] MEDS: Empagliflozin 25 MG Tab PO STA (10:50)
[2024-02-27] MEDS: Empagliflozin 25 MG Tab PO SCH (16:43)
[2024-02-28 07:00] LABS: BASOPHILS PERCENT AUTO 0.6 % (0.0-1.0); EOSINOPHILS PERCENT AUTO 3.7 % (1.0-3.0); HEMATOCRIT 33.2 % (37.0-47.0); HEMOGLOBIN 10.5 g/dL (12.0-16.0); LYMPHOCYTES PERCENT AUTO 14.5 % (20.5-50.1); MEAN CORPUSCULAR HEMOGLOBIN 28.7 pg (27.0-34.0); MEAN CORPUSCULAR HGB CONC 31.6 g/dL (33.0-35.0); MEAN CORPUSCULAR VOLUME 90.7 fL (80-100); MONOCYTES PERCENT AUTO 7.1 % (2-8); NEUTROPHILS PERCENT AUTO 74.1 % (42.2-75.2); PLATELET COUNT,PLT 323 10^3/uL (150-450); RED BLOOD CELL COUNT 3.66 10^6/uL (4.2-5.4); WHITE BLOOD CELL COUNT,WBC 8.9 10^3/uL (5.0-10.0)
[2024-02-28 07:29] LABS: ALBUMIN 2.4 g/dL (3.4-5.0); ANION GAP 14.8 mEq/L (7-13); BILIRUBIN TOTAL 0.3 mg/dL (0.2-1.0); BUN/CREATININE RATIO 25.5 (No establ ref range); C-REACTIVE PROTEIN 4.67 ng/dL (<=0.50); CALCIUM 8.9 mg/dL (8.5-10.1); CREATININE 1.41 mg/dL (0.55-1.02); EST CRCL DRUG DOSING (CG) 24.33 mL/min; MAGNESIUM 1.9 mg/dL (1.8-2.4); POTASSIUM,K 4.8 mmol/L (3.5-5.1); PROTEIN TOTAL,TP 6.5 g/dL (6.4-8.2)
[2024-02-28 07:32] LABS: INR 2.5 (0.9-1.2); PROTHROMBIN TIME 24.2 SEC (9.0-12.0)
[2024-02-28 07:37] LABS: A/G RATIO 0.59
[2024-02-28] MEDS: Empagliflozin 25 MG Tab PO SCH (09:45)
[2024-02-29 07:33] LABS: PROTHROMBIN TIME 19.6 SEC (9.0-12.0)
[2024-02-29] MEDS: Warfarin 2.5 MG Tab PO ONE (20:58)
[2024-02-29] MEDS ORDERED: Warfarin 2 MG Tab PO SCH (21:00)
[2024-02-29] MEDS ORDERED: Warfarin 2 MG Tab PO ONE (21:00)
[2024-03-01 06:40] LABS: INR 1.9 (0.9-1.2); PROTHROMBIN TIME 19.3 SEC (9.0-12.0)
[2024-03-01 06:42] LABS: ALBUMIN 2.4 g/dL (3.4-5.0); ANION GAP 14.4 mEq/L (7-13); BILIRUBIN TOTAL 0.4 mg/dL (0.2-1.0); BUN/CREATININE RATIO 25.6 (No establ ref range); CREATININE 1.29 mg/dL (0.55-1.02); EST CRCL DRUG DOSING (CG) 26.59 mL/min; POTASSIUM,K 5.4 mmol/L (3.5-5.1); PROTEIN TOTAL,TP 7.3 g/dL (6.4-8.2)
[2024-03-01 06:52] LABS: A/G RATIO 0.49
[2024-03-01 12:03] VITALS: BP 146/62; PULSE 75
[2024-03-01] MEDS: Sodium Polystyrene Sulfonate 15 GM/60 ML Susp 60 ML Bot PO ONE (12:36)
[2024-03-01] MEDS: Hydrochlorothiazide 25 MG Tab PO SCH (12:36)
[2024-03-01] MEDS ORDERED: Warfarin 5 MG Tab PO ONE (21:00)
== END 2024-03-01 11:49 | disposition swing bed (61) | DRG 607 ==
LOC: DL.ED 08:57 → DL.MS 11:44
PROVIDERS: ADMIT Internal Medicine; ATTEND Internal Medicine
PROC: 0T9B70Z Drainage of Bladder with Drainage Device, Via Natural or Artificial Opening (ICD-10-PCS; principal; 2024-02-22)
DX: B37.2 Candidiasis of skin and nail (principal); B35.6 Tinea cruris; E11.9 Type 2 diabetes mellitus without complications; E66.9 Obesity, unspecified; I10 Essential (primary) hypertension; Z68.41 Body mass index [BMI] 40.0-44.9, adult; I48.91 Unspecified atrial fibrillation; L30.3 Infective dermatitis; H54.7 Unspecified visual loss; I25.10 Atherosclerotic heart disease of native coronary artery without angina pectoris; Z88.0 Allergy status to penicillin; Z88.2 Allergy status to sulfonamides; Z88.5 Allergy status to narcotic agent; Z88.6 Allergy status to analgesic agent; E78.00 Pure hypercholesterolemia, unspecified; I48.0 Paroxysmal atrial fibrillation; Z68.43 Body mass index [BMI] 50.0-59.9, adult; J45.909 Unspecified asthma, uncomplicated; M19.90 Unspecified osteoarthritis, unspecified site; L98.491 Non-pressure chronic ulcer of skin of other sites limited to breakdown of skin; N18.2 Chronic kidney disease, stage 2 (mild); E11.22 Type 2 diabetes mellitus with diabetic chronic kidney disease; I12.9 Hypertensive chronic kidney disease with stage 1 through stage 4 chronic kidney disease, or unspecified chronic kidney disease; G47.33 Obstructive sleep apnea (adult) (pediatric); L30.4 Erythema intertrigo; M54.08 Panniculitis affecting regions of neck and back, sacral and sacrococcygeal region; E11.65 Type 2 diabetes mellitus with hyperglycemia; E83.42 Hypomagnesemia; E88.09 Other disorders of plasma-protein metabolism, not elsewhere classified; R41.3 Other amnesia; E11.69 Type 2 diabetes mellitus with other specified complication; E66.01 Morbid (severe) obesity due to excess calories; Z88.8 Allergy status to other drugs, medicaments and biological substances; Z88.1 Allergy status to other antibiotic agents; Z91.048 Other nonmedicinal substance allergy status; Z91.041 Radiographic dye allergy status; Z79.899 Other long term (current) drug therapy; Z79.01 Long term (current) use of anticoagulants; Z79.84 Long term (current) use of oral hypoglycemic drugs; Z98.49 Cataract extraction status, unspecified eye; Z95.2 Presence of prosthetic heart valve; Z95.5 Presence of coronary angioplasty implant and graft; Z98.890 Other specified postprocedural states; Z90.89 Acquired absence of other organs; Z90.710 Acquired absence of both cervix and uterus; Z87.891 Personal history of nicotine dependence; Z86.16 Personal history of COVID-19
CPT/HCPCS: 36415; 80053; 81001; 83605; 84145; 85025; 85610; 86140; 96365; 99284; 99285; J2248; J3490; 51702; 71045; 80202; 82947; 83735; 87040; 97110-GP; 97161-GP; 97162-GP; 97530-GP; A9270-GY; J0696; J1815-GY; J3370; J3475; J7030; J7050; J7620-GY

== ENCOUNTER 2024-03-01 11:01 | Inpatient (IN) | payer MEDICARE, OTHER ==
[2024-03-01] MEDS ORDERED: hydrALAZINE 20 MG/ML SDV IVPUSH PRN (11:08)
[2024-03-01] MEDS ORDERED: Acetaminophen/Butalbital/Caffeine 325-50-40 MG Tab PO PRN (11:08)
[2024-03-01] MEDS ORDERED: Glucagon,Human Recombinant 1 MG Vial IM PRN ×2 (11:08)
[2024-03-01] MEDS ORDERED: Naloxone 2 MG/2 ML Syringe IVPUSH PRN (11:08)
[2024-03-01] MEDS ORDERED: 50% Dextrose in Water 50 ML Syringe IVPUSH PRN (11:08)
[2024-03-01] MEDS ORDERED: Emollient Combination No.71 177 ML Bottle TOP PRN (11:08)
[2024-03-01] MEDS ORDERED: Diclofenac Sodium 1% Gel 100 GM Tube SCH (11:08)
[2024-03-01] MEDS ORDERED: Benzonatate 100 MG Cap PO PRN (11:08)
[2024-03-01] MEDS ORDERED: Ondansetron 4 MG/2 ML SDV IVPUSH PRN (11:08)
[2024-03-01] MEDS ORDERED: Codeine/Promethazine 10-6.25 MG/5 ML Syrup 5 ML UD Cup PO PRN (11:08)
[2024-03-01] MEDS ORDERED: Metoprolol Tartrate 5 MG/5 ML SDV IVPUSH PRN (11:08)
[2024-03-01] MEDS ORDERED: Albuterol/Ipratropium 3.0-0.5 MG/3 ML Neb Soln NEB PRN (11:08)
[2024-03-01] MEDS ORDERED: Sodium Chloride 0.9% 10 ML Syringe FLUSH PRN ×2 (11:08)
[2024-03-01] MEDS: Hydrochlorothiazide 25 MG Tab PO SCH (15:16)
[2024-03-01] MEDS: Sodium Polystyrene Sulfonate 15 GM/60 ML Susp 60 ML Bot PO ONE (15:16)
[2024-03-01] MEDS: Insulin Lispro 100 Units/ML 3 ML Vial SUBCUT SCH (15:16)
[2024-03-01] MEDS: Pantoprazole 40 MG Tab.CR PO SCH (17:04)
[2024-03-01] MEDS: Empagliflozin 25 MG Tab PO SCH (17:04)
[2024-03-01] MEDS ORDERED: Warfarin 5 MG Tab PO SCH ×2 (20:45)
[2024-03-01] MEDS: cloNIDine 0.1 MG Tab PO SCH (21:35)
[2024-03-01] MEDS: Saccharomyces Boulardii (Probiotic) 250 MG Cap PO SCH (21:36)
[2024-03-01] MEDS: Metoprolol Tartrate 50 MG Tab PO SCH (21:37)
[2024-03-01] MEDS: Nystatin Topical Powder 60 GM Bottle TOP SCH (21:38)
[2024-03-01] MEDS: Warfarin 5 MG Tab PO ONE (21:38)
[2024-03-02] MEDS: Sodium Chloride 0.9% 10 ML Syringe FLUSH SCH (02:10)
[2024-03-02 06:58] LABS: INR 2.2 (0.9-1.2); PROTHROMBIN TIME 21.4 SEC (9.0-12.0)
[2024-03-02] MEDS: Diltiazem 120 MG Cap.CD PO SCH (09:47)
[2024-03-02] MEDS: Diltiazem 180 MG Cap.CD PO SCH (09:47)
[2024-03-02] MEDS: Ibuprofen 600 MG Tab PO PRN (21:05)
[2024-03-02] MEDS: Warfarin 2.5 MG Tab PO ONE (21:09)
[2024-03-02] MEDS ORDERED: Lidocaine 2% Jelly 5 ML Tube TOP PRN (21:30)
[2024-03-02] MEDS ORDERED: Lidocaine 2% Viscous Solution 15 ML UD TOP PRN (22:00)
[2024-03-03 06:48] LABS: INR 2.9 (0.9-1.2); PROTHROMBIN TIME 27.8 SEC (9.0-12.0)
[2024-03-03] MEDS: Lidocaine 1% 5 ML VIAL ONE (13:12)
[2024-03-03] MEDS: Warfarin 5 MG Tab PO SCH (21:57)
[2024-03-03] MEDS: Melatonin 3 MG Tab PO PRN (21:58)
[2024-03-04 06:59] LABS: INR 2.9 (0.9-1.2); PROTHROMBIN TIME 28.4 SEC (9.0-12.0)
[2024-03-04] MEDS: Warfarin 2.5 MG Tab PO SCH (20:48)
[2024-03-05 06:49] LABS: INR 3.3 (0.9-1.2); PROTHROMBIN TIME 31.6 SEC (9.0-12.0)
[2024-03-06 06:43] LABS: INR 3.1 (0.9-1.2); PROTHROMBIN TIME 30.3 SEC (9.0-12.0)
[2024-03-06 06:46] LABS: ALBUMIN 2.6 g/dL (3.4-5.0); ANION GAP 13.2 mEq/L (7-13); BILIRUBIN TOTAL 0.3 mg/dL (0.2-1.0); BUN/CREATININE RATIO 20.7 (No establ ref range); CALCIUM 9.4 mg/dL (8.5-10.1); CREATININE 1.5 mg/dL (0.55-1.02); EST CRCL DRUG DOSING (CG) 22.87 mL/min; MAGNESIUM 1.8 mg/dL (1.8-2.4); POTASSIUM,K 4.2 mmol/L (3.5-5.1); PROTEIN TOTAL,TP 7.1 g/dL (6.4-8.2)
[2024-03-06 06:48] LABS: A/G RATIO 0.58
[2024-03-07 07:17] LABS: INR 2.6 (0.9-1.2)
[2024-03-07] MEDS: Warfarin 2.5 MG Tab PO ONE (21:22)
[2024-03-08] MEDS: traMADol 50 MG Tab PO PRN (20:35)
[2024-03-08] MEDS: Warfarin 5 MG Tab PO ONE (20:35)
[2024-03-09 07:14] LABS: PROTHROMBIN TIME 19.6 SEC (9.0-12.0)
[2024-03-09 12:23] VITALS: BP 136/53; PULSE 88
[2024-03-09] MEDS: Warfarin 2.5 MG Tab PO ONE (12:26)
== END 2024-03-09 13:38 | disposition home or self-care (01) | DRG 948 ==
LOC: DL.MS 11:50
PROVIDERS: ADMIT Internal Medicine; ATTEND Internal Medicine
DX: R53.1 Weakness (principal); Z68.41 Body mass index [BMI] 40.0-44.9, adult; I12.9 Hypertensive chronic kidney disease with stage 1 through stage 4 chronic kidney disease, or unspecified chronic kidney disease; I25.10 Atherosclerotic heart disease of native coronary artery without angina pectoris; I48.0 Paroxysmal atrial fibrillation; E11.22 Type 2 diabetes mellitus with diabetic chronic kidney disease; N18.2 Chronic kidney disease, stage 2 (mild); J45.909 Unspecified asthma, uncomplicated; G47.33 Obstructive sleep apnea (adult) (pediatric); H54.7 Unspecified visual loss; E66.01 Morbid (severe) obesity due to excess calories; E78.00 Pure hypercholesterolemia, unspecified; M19.90 Unspecified osteoarthritis, unspecified site; E11.65 Type 2 diabetes mellitus with hyperglycemia; E88.09 Other disorders of plasma-protein metabolism, not elsewhere classified; F41.9 Anxiety disorder, unspecified; Z98.49 Cataract extraction status, unspecified eye; Z88.8 Allergy status to other drugs, medicaments and biological substances; Z88.1 Allergy status to other antibiotic agents; Z91.048 Other nonmedicinal substance allergy status; Z88.0 Allergy status to penicillin; Z79.84 Long term (current) use of oral hypoglycemic drugs; Z79.899 Other long term (current) drug therapy; Z79.01 Long term (current) use of anticoagulants; Z90.89 Acquired absence of other organs; Z95.2 Presence of prosthetic heart valve; Z95.5 Presence of coronary angioplasty implant and graft; Z98.890 Other specified postprocedural states; Z90.710 Acquired absence of both cervix and uterus; Z86.16 Personal history of COVID-19
CPT/HCPCS: 36415; 80053; 82947; 83735; 85610; 97110-GP; 97116-GP; 97161-GP; 97530-GP; A9270-GY; J3490

== ENCOUNTER 2024-10-09 09:51 | Inpatient (IN) | payer MEDICARE, OTHER ==
[2024-10-09] MEDS ORDERED: Sodium Chloride 0.9% 10 ML Syringe FLUSH PRN (10:01)
[2024-10-09 10:10] LABS: BASOPHILS PERCENT AUTO 0.2 % (0.0-1.0); EOSINOPHILS PERCENT AUTO 0.5 % (1.0-3.0); HEMATOCRIT 36.4 % (37.0-47.0); HEMOGLOBIN 11.4 g/dL (12.0-16.0); LYMPHOCYTES PERCENT AUTO 5.5 % (20.5-50.1); MEAN CORPUSCULAR HEMOGLOBIN 27.6 pg (27.0-34.0); MEAN CORPUSCULAR HGB CONC 31.3 g/dL (33.0-35.0); MEAN CORPUSCULAR VOLUME 88.1 fL (80-100); MONOCYTES PERCENT AUTO 6.7 % (2-8); NEUTROPHILS PERCENT AUTO 87.1 % (42.2-75.2); PLATELET COUNT,PLT 246 10^3/uL (150-450); RED BLOOD CELL COUNT 4.13 10^6/uL (4.2-5.4); WHITE BLOOD CELL COUNT,WBC 12.7 10^3/uL (5.0-10.0)
[2024-10-09 10:29] LABS: APPEARANCE,URINE SLIGHTLY CLOUDY (CLEAR); BILIRUBIN,URINE SMALL (NEGATIVE); COLOR,URINE DARK YELLOW (YELLOW); GLUCOSE,URINE NEGATIVE (NEGATIVE); KETONES,URINE NEGATIVE (NEGATIVE); LEUKOCYTE ESTERASE,URINE NEGATIVE (NEGATIVE); NITRITE,URINE NEGATIVE (NEGATIVE); OCCULT BLOOD,URINE SMALL (NEGATIVE); PH,URINE 5.5 (5.0-9.0); PROTEIN,URINE 100 (NEGATIVE)
[2024-10-09 10:35] LABS: LACTIC ACID 2.5 mmol/L (0.4-2.0)
[2024-10-09] MEDS: Sodium Chloride 0.9% 1,000 ML IV ONE (10:39)
[2024-10-09] MEDS: Metoprolol Tartrate 50 MG Tab PO ONE (10:39)
[2024-10-09 10:41] LABS: ALBUMIN 2.7 g/dL (3.4-5.0); ANION GAP 17.9 mEq/L (7-13); BILIRUBIN TOTAL 0.9 mg/dL (0.2-1.0); BUN/CREATININE RATIO 15.2 (No establ ref range); C-REACTIVE PROTEIN 20.84 ng/dL (<=0.50); CALCIUM 8.8 mg/dL (8.5-10.1); CREATININE 2.1 mg/dL (0.55-1.02); EST CRCL DRUG DOSING (CG) 16.05 mL/min; POTASSIUM,K 3.9 mmol/L (3.5-5.1); PROTEIN TOTAL,TP 7.6 g/dL (6.4-8.2)
[2024-10-09] MEDS: Losartan 50 MG Tab PO ONE (10:42)
[2024-10-09 10:43] LABS: AMORPHOUS SEDIMENT,URINE MODERATE /HPF (NOT SEEN); BACTERIA,URINE FEW /HPF (0-FEW/HPF); EPITHELIAL CELLS,URINE MODERATE /HPF (NOT SEEN); MUCUS,URINE FEW /LPF (NOT SEEN); RBC,URINE 0-5 /HPF (0-5)
[2024-10-09 10:43] LABS: A/G RATIO 0.55
[2024-10-09] MEDS: Diltiazem 120 MG Cap.CD PO ONE (10:43)
[2024-10-09] MEDS: Diltiazem 180 MG Cap.CD PO ONE (10:43)
[2024-10-09] MEDS: Nystatin Topical Powder 60 GM Bottle TOP ONE (10:43)
[2024-10-09 10:49] LABS: INR 2.5 (0.9-1.2); PROTHROMBIN TIME 24.8 SEC (9.0-12.0)
[2024-10-09] MEDS: VANCOmycin 1.5 GM/300 ML 300 ML IV ONE (12:32)
[2024-10-09] MEDS ORDERED: Docusate Sodium 100 MG Cap PO PRN (13:35)
[2024-10-09] MEDS ORDERED: Polyethylene Glycol 3350 Powder 17 GM Packet PO PRN (13:35)
[2024-10-09] MEDS ORDERED: Ondansetron 4 MG/2 ML SDV IVPUSH PRN (13:35)
[2024-10-09] MEDS: Nystatin Topical Powder 60 GM Bottle TOP SCH (15:17)
[2024-10-09] MEDS: Micafungin 100 MG in Sodium Chloride 0.9% 100 ML IV SCH (15:17)
[2024-10-09] MEDS ORDERED: 50% Dextrose in Water 50 ML Syringe IVPUSH PRN ×2 (15:23→15:24)
[2024-10-09] MEDS ORDERED: Glucagon,Human Recombinant 1 MG Vial IM PRN ×2 (15:23→15:24)
[2024-10-09] MEDS: Warfarin 2.5 MG Tab PO ONE (16:02)
[2024-10-09 16:18] LABS: HEMOGLOBIN A1C 6.3 % (<5.7)
[2024-10-09] MEDS: Insulin Lispro 100 Units/ML 3 ML Vial SUBCUT SCH (17:34)
[2024-10-09] MEDS: Piperacillin/Tazobactam 4.5 GM in Sodium Chloride 0.9% 100 ML IV ONE (17:36)
[2024-10-09] MEDS: Ibuprofen 400 MG Tab PO PRN (17:56)
[2024-10-09] MEDS ORDERED: Temazepam 15 MG Cap PO PRN ×2 (19:21→19:32)
[2024-10-09] MEDS: Metoprolol Tartrate 50 MG Tab PO SCH (21:46)
[2024-10-09] MEDS: Insulin Glarg,Human.Rec.Analog 100 Unit/ML 10 ML Vial SUBCUT SCH (21:48)
[2024-10-09] MEDS: Sodium Chloride 0.9% 10 ML Syringe FLUSH SCH (22:02)
[2024-10-09] MEDS: Sodium Chloride 0.9% 1,000 ML IV SCH (22:03)
[2024-10-09] MEDS: Piperacillin/Tazobactam 4.5 GM in Sodium Chloride 0.9% 100 ML IV SCH (22:08)
[2024-10-09] MEDS ORDERED: Sodium Chloride 0.9% 250 ML IV SCH (22:30)
[2024-10-10] MEDS: Melatonin 3 MG Tab PO PRN (00:49)
[2024-10-10] MEDS: Pantoprazole 40 MG Tab.CR PO SCH (05:09)
[2024-10-10 06:29] LABS: BASOPHILS PERCENT AUTO 0.1 % (0.0-1.0); EOSINOPHILS PERCENT AUTO 2.8 % (1.0-3.0); HEMATOCRIT 30.7 % (37.0-47.0); HEMOGLOBIN 9.5 g/dL (12.0-16.0); LYMPHOCYTES PERCENT AUTO 6.9 % (20.5-50.1); MEAN CORPUSCULAR HEMOGLOBIN 27.5 pg (27.0-34.0); MEAN CORPUSCULAR HGB CONC 30.9 g/dL (33.0-35.0); MONOCYTES PERCENT AUTO 6.6 % (2-8); NEUTROPHILS PERCENT AUTO 83.6 % (42.2-75.2); PLATELET COUNT,PLT 220 10^3/uL (150-450); RED BLOOD CELL COUNT 3.45 10^6/uL (4.2-5.4)
[2024-10-10 06:59] LABS: INR 3.6 (0.9-1.2); PROTHROMBIN TIME 34.3 SEC (9.0-12.0); PTT,PARTIAL THROMBOPLSTIN TIME 36.2 SEC (22.0-34.0)
[2024-10-10 07:00] LABS: ALBUMIN 1.9 g/dL (3.4-5.0); ANION GAP 15.4 mEq/L (7-13); BILIRUBIN TOTAL 0.6 mg/dL (0.2-1.0); BUN/CREATININE RATIO 16.9 (No establ ref range); CREATININE 2.31 mg/dL (0.55-1.02); EST CRCL DRUG DOSING (CG) 14.59 mL/min; MAGNESIUM 1.7 mg/dL (1.8-2.4); POTASSIUM,K 3.4 mmol/L (3.5-5.1)
[2024-10-10 07:02] LABS: A/G RATIO 0.46
[2024-10-10] MEDS: Magnesium Sulfate/Water Premix 2 GM in Premix Bag 1 BAG IV ONE (07:28)
[2024-10-10] MEDS ORDERED: Losartan 50 MG Tab PO SCH (09:00)
[2024-10-10] MEDS: Potassium Chloride 10 MEQ Tab.ER PO SCH (09:07)
[2024-10-10] MEDS: Diltiazem 180 MG Cap.CD PO SCH (09:09)
[2024-10-10] MEDS: Albuterol/Ipratropium 3.0-0.5 MG/3 ML Neb Soln NEB SCH (11:04)
[2024-10-10] MEDS ORDERED: VANCOmycin 750 MG in Sodium Chloride 0.9% 250 ML IV SCH (12:00)
[2024-10-10] MEDS: Metoprolol Succinate 50 MG Tab.ER PO SCH (13:12)
[2024-10-10] MEDS: Furosemide 40 MG/4 ML VIAL IVPUSH ONE ×2 (13:13→19:53)
[2024-10-10] MEDS: LORazepam 0.5 MG Tab PO ONE (13:19)
[2024-10-10] MEDS: VANCOmycin 750 MG in Sodium Chloride 0.9% 250 ML IV SCH (14:52)
[2024-10-10] MEDS: methylPREDNISolone Sodium Succinate 40 MG/1 ML SDV IVPUSH SCH (15:13)
[2024-10-10] MEDS: oxyCODONE 5 MG Tab PO PRN (15:24)
[2024-10-10] MEDS: Diltiazem 120 MG Cap.CD PO ONE (15:58)
[2024-10-10 16:24] LABS: O2 DELIVERY DEVICE ROOM AIR
[2024-10-10 16:29] LABS: BASE EXCESS VENOUS -4.2 mmol/l ((-2)-(+3)); BICARBONATE,VENOUS 21 mmol/l (19-25); O2 SATURATION VENOUS 77.2 % (60-80); PCO2 VENOUS 39 mmHg (41-51); PH,VENOUS 7.34 (7.31-7.41); PO2 VENOUS 50 mmHg (35-42)
[2024-10-10] MEDS: Diltiazem 25 MG/5 ML SDV IVPUSH ONE ×3 (16:43→20:54)
[2024-10-10] MEDS: Diltiazem 25 MG/5 ML SDV ONE (16:48)
[2024-10-10] MEDS: Diltiazem 125 MG in Sodium Chloride 0.9% 100 ML IV SCH (18:32)
[2024-10-11 06:33] LABS: BASOPHILS PERCENT AUTO 0.1 % (0.0-1.0); HEMATOCRIT 34.7 % (37.0-47.0); HEMOGLOBIN 10.9 g/dL (12.0-16.0); LYMPHOCYTES PERCENT AUTO 2.2 % (20.5-50.1); MEAN CORPUSCULAR HEMOGLOBIN 27.5 pg (27.0-34.0); MEAN CORPUSCULAR HGB CONC 31.4 g/dL (33.0-35.0); MEAN CORPUSCULAR VOLUME 87.6 fL (80-100); NEUTROPHILS PERCENT AUTO 95.7 % (42.2-75.2); PLATELET COUNT,PLT 237 10^3/uL (150-450); RED BLOOD CELL COUNT 3.96 10^6/uL (4.2-5.4); WHITE BLOOD CELL COUNT,WBC 10.8 10^3/uL (5.0-10.0)
[2024-10-11 06:57] LABS: INR 3.1 (0.9-1.2); PROTHROMBIN TIME 29.9 SEC (9.0-12.0)
[2024-10-11 07:00] LABS: ANION GAP 16.2 mEq/L (7-13); BILIRUBIN TOTAL 0.5 mg/dL (0.2-1.0); BUN/CREATININE RATIO 17.4 (No establ ref range); CALCIUM 8.4 mg/dL (8.5-10.1); CREATININE 2.41 mg/dL (0.55-1.02); EST CRCL DRUG DOSING (CG) 13.99 mL/min; MAGNESIUM 2.1 mg/dL (1.8-2.4); POTASSIUM,K 3.2 mmol/L (3.5-5.1); PROTEIN TOTAL,TP 6.8 g/dL (6.4-8.2)
[2024-10-11 07:01] LABS: A/G RATIO 0.42
[2024-10-11] MEDS: Diltiazem 125 MG in Sodium Chloride 0.9% 100 ML IV SCH (08:16)
[2024-10-11] MEDS: Furosemide 100 MG/10 ML SDV IVPUSH ONE (08:19)
[2024-10-11] MEDS: Diltiazem 120 MG Cap.CD PO SCH (08:26)
[2024-10-11] MEDS: Metoprolol Succinate 50 MG Tab.ER PO SCH (08:28)
[2024-10-11] MEDS: Potassium Chloride 10 MEQ Tab.ER PO ONE (10:22)
[2024-10-11] MEDS: cefTRIAXone 2 GM Vial IVPUSH SCH (11:05)
[2024-10-11] MEDS: Azithromycin 500 MG in Sodium Chloride 0.9% 250 ML IV SCH (11:25)
[2024-10-11] MEDS: Metoprolol Tartrate 5 MG/5 ML SDV IVPUSH PRN (11:57)
[2024-10-11] MEDS: Warfarin** 1 MG TABLET PO SCH (14:02)
[2024-10-11] MEDS: Furosemide 20 MG/2 ML VIAL IVPUSH ONE (16:00)
[2024-10-11 16:09] VITALS: BP 121/73; PULSE 97
== END 2024-10-11 18:30 | DRG 872 ==
LOC: DL.ED 09:51 → DL.MS 11:21
PROVIDERS: ADMIT Internal Medicine; ATTEND Internal Medicine
DX: A41.9 Sepsis, unspecified organism (principal); R65.20 Severe sepsis without septic shock; R53.1 Weakness; N17.9 Acute kidney failure, unspecified; I48.20 Chronic atrial fibrillation, unspecified; J45.901 Unspecified asthma with (acute) exacerbation; I10 Essential (primary) hypertension; Z68.42 Body mass index [BMI] 45.0-49.9, adult; H54.7 Unspecified visual loss; E66.9 Obesity, unspecified; I25.10 Atherosclerotic heart disease of native coronary artery without angina pectoris; Z88.0 Allergy status to penicillin; Z88.1 Allergy status to other antibiotic agents; Z91.041 Radiographic dye allergy status; E78.00 Pure hypercholesterolemia, unspecified; Z91.09 Other allergy status, other than to drugs and biological substances; I11.9 Hypertensive heart disease without heart failure; B37.9 Candidiasis, unspecified; J45.909 Unspecified asthma, uncomplicated; G47.33 Obstructive sleep apnea (adult) (pediatric); M19.90 Unspecified osteoarthritis, unspecified site; E11.9 Type 2 diabetes mellitus without complications; E66.813 Obesity, class 3; J40 Bronchitis, not specified as acute or chronic; E87.6 Hypokalemia; N18.9 Chronic kidney disease, unspecified; E53.8 Deficiency of other specified B group vitamins; D64.9 Anemia, unspecified; I48.0 Paroxysmal atrial fibrillation; Z88.8 Allergy status to other drugs, medicaments and biological substances; Z79.899 Other long term (current) drug therapy; Z95.1 Presence of aortocoronary bypass graft; Z90.710 Acquired absence of both cervix and uterus; Z86.73 Personal history of transient ischemic attack (TIA), and cerebral infarction without residual deficits; Z95.5 Presence of coronary angioplasty implant and graft; Z79.01 Long term (current) use of anticoagulants; Z98.890 Other specified postprocedural states
CPT/HCPCS: 36415; 51702; 71045; 71250; 76770; 80053; 80202; 81001; 82550; 82803; 82947; 83036; 83605; 83735; 83880; 84132; 84145; 85025; 85610; 85730; 86140; 87040; 87086; 87428-QW; 93005; 93306; 94640; 96360; 99223; 99233; 99239; 99284; 99285-25; A9270-GY; J0456; J0696; J1815-GY; J1940; J2248; J2543; J2919; J3370; J3372; J3475; J3490; J7030; J7050; J7620-GY

== ENCOUNTER 2025-04-18 16:37 | Emergency (ER) | payer MEDICARE, OTHER | END 2025-04-18 16:41 | disposition EXP | LOC: DL.ED 16:37 | DX: I46.9 Cardiac arrest, cause unspecified (principal); I10 Essential (primary) hypertension; I25.10 Atherosclerotic heart disease of native coronary artery without angina pectoris; I48.91 Unspecified atrial fibrillation; E78.00 Pure hypercholesterolemia, unspecified; E11.9 Type 2 diabetes mellitus without complications; E66.9 Obesity, unspecified; Z95.1 Presence of aortocoronary bypass graft; Z79.899 Other long term (current) drug therapy; Z79.01 Long term (current) use of anticoagulants; Z79.84 Long term (current) use of oral hypoglycemic drugs; Z88.8 Allergy status to other drugs, medicaments and biological substances; Z88.5 Allergy status to narcotic agent; Z88.0 Allergy status to penicillin; Z91.041 Radiographic dye allergy status; Z88.1 Allergy status to other antibiotic agents; Z88.6 Allergy status to analgesic agent; Z90.710 Acquired absence of both cervix and uterus | CPT/HCPCS: 99284 ==